=== PATIENT | male | born 1960 | race Caucasian/White ===

== ENCOUNTER 2023-09-11 13:15 | Outpatient (RCR) | payer MEDICAID, SELFPAY ==
[2023-08-21 13:12] VITALS: BP 141/76; PULSE 61; RESP 18; BMI 32.5
--- NOTE | 2023-08-22 13:57 | PCM.WC.HP ---
History of Present Illness Date of Service: 08/21/23 Chief Complaint: Right Diabetic Foot Ulcer History of Wound: Mr. Devin Molina is a 63-year-old male who presents to the wound healing center today for evaluation and management of a right diabetic foot ulcer which seems to have formed after he began wearing regular shoes according to records received from prior wound center. This ulceration is on the right lateral foot. This wound has been ongoing for at least the last 2 months. He recently moved back to [place] from [place] where he had been for the past several years. He was receiving care for this ulceration at the wound care center there. He reports they were treating with Apligraf and PuraPly. He reports the wound has been making positive progress over the last few weeks. He is wearing a surgical shoe to keep pressure off of that area. He has been seen here at this wound center multiple times in the past for diabetic foot ulcers, last seen in 2015 before moving to [place]. 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 He had a left lower extremity angiogram with tibial intervention on 01/14/2023 to attempt to improve inflow for limb salvage efforts. Ultimately he did undergo the left BKA on 03/05/2023. Other than this recent angiogram he denies any prior vascular surgical interventions. He did have arterial studies in [place] on 06/17/2023 and the fax report shows a right TEDDY of 1.03 with stenosis of the right SFA. He has a history of poorly controlled diabetes but fortunately now has better control with report of his last A1c 6.8 in May. He did receive new shoe insert from podiatry in [place]. He just got back to [place] this week. He has called to establish with a PCP but his first appointment is not until September. He relates that he will be out of insulin before then and he is concerned about this. He is also having some trouble with his prosthetic, there is a spot that is rubbing against his left knee but he has not established with a prosthetics company here in [place] yet. He has not established with a certified nursing assistant instructor here yet. [facility] Home Medications aspirin 81 mg chewable tablet 81 mg PO DAILY@0800 02/23/16 [History Last Taken Unknown] clopidogrel 75 mg tablet (Plavix) 75 mg PO DAILY 08/21/23 [History Last Taken Unknown] insulin aspart U-100 See Rx Instructions .Route .COMPLEX 08/21/23 [History Last Taken Unknown] Allergy/AdvReac Type Severity Reaction Status Date / Time Sulfa (Sulfonamide Allergy Unknown Verified 08/21/23 13:33 Antibiotics) liraglutide [From Victoza] AdvReac Vomiting Verified 08/21/23 13:33 Social History Smoking Status: Never smoker Vital Signs Vital Signs Vital Signs: Weight Weight: 240 lb 1.75 oz Body Mass Index (BMI) 32.5 Physical Exam Const alert, oriented x3 and no apparent distress General Appearance: cooperative and comfortable HEENT normocephalic, head/scalp atraumatic, hearing grossly normal bilaterally, external ears normal and external nose normal Eyes EOMs intact bilaterally General Eye: normal appearance of both eyes Neck full ROM General: normal visual inspection and trachea midline Resp normal respiratory effort Effort and Inspection: able to speak in complete sentences; Negative for respiratory distress, labored, stridor, retractions or audible wheezes Cardio regular rate and regular rhythm Extremity Extremity Narrative: Left BKA Palpable right PT, DP diminished to palpation Skin no rashes or lesions noted Wounds: wounds noted Wound Narrative: Small ulceration to the right lateral aspect of the foot. There is granulation tissue at the base, some callus in the periwound. There is no significant tracking. Minimal periwound erythema without excessive warmth or focal swelling. No significant drainage or foul odor. Neuro oriented x3, CN's II-XII intact bilaterally, moves all extremities and no focal motor deficits Speech: speech normal Psych mental status grossly normal Appearance: grossly normal Attitude: calm and engaged Activity / Motor Behavior: appropriate eye contact Speech: normal speech Judgement: judgement good Debridement Note Debridement Note Wound debrided: Right lateral foot Laterality: Right Type of Debridement: Excisional debridement Anesthesia Used: 5% Lidocaine Gel Depth: in the subcutaneous layer Percentage of wound debrided: 100 Instrument Used: 5mm curette Tissue Removed: Callus, slough, devitalized tissue Severity: Fat Layer Exposed Amount of bleeding with debridement: Mild Bleeding Controlled with: Pressure Patient tolerated procedure: Patient tolerated procedure well Post-Debridement Measurements and Additional Note: Post-Debridement Measurements/Treatment WC - Nurse 1 - General Ulcer Assessment Start: 08/21/23 13:12 Freq: Status: Active Protocol: WC.LOWEXT Activity Type Activity Date Activity User E-sign Co-sign Detail Recorded Client Recorded Date Recorded By Document 08/21/23 13:12 DL Desktop 08/21/23 13:27 DL Edit Result 08/21/23 13:12 DL (1) Desktop 08/21/23 13:30 DL (1) Preferred language => [place] Able to Read => Yes Able to Write => Yes Communication Tools => None Right Hearing Abillity => Normal Left Hearing Abillity => Normal Visual Assistive Devices => Glasses Preferences => Verbal,Written Barriers to Learning => None Readiness To Learn => Good Willingness to Engage in Self Management => Med Activies Readiness to Engage in Self Management => Med Activities Anxiety Level => Calm Cooperation => Cooperative Perception => Coherent Interest in Health Problem => Asks Questions Education Importance => Acknowledges Need Does Patient Smoke tobacco or other => No substances Is Patient Diabetic => Yes Recent Decline in Ability to Perform => Denies Any => Declines Cultural/Religion Needs that may affect => No Treatment Plan Would you allow our [facility] accounts clerk to => No meet you for the purpose of spiritual/ emotional support? Federal Agent to contact place of mormon => No 08/21/23 13:12 - Today's Visit Information Type of service Initial Visit Arrival Mode Ambulatory Transfer Assistance None Patient Identification Verified (Name & Yes ) Patient Requires Transmission-Based No Precautions Finger Stick Blood Sugar(mg/dl) (if 122 indicated): Blood Sugar Stated by Patient Height and Weight Height 6 ft Weight 240 lb 1.75 oz Weight in Pounds 240.1 lbs Body Mass Index (BMI) 32.5 BMI Classification Obese BSA - Ben 2.30 Vital Signs Pulse Rate (60-100) 61 Pulse Location Monitor Respiratory Rate (12-18) 18 Respiratory rate source Observation Blood Pressure (90/60-120/80) 141/76 H Blood Pressure Mean 97 Source Monitor History Since Last Visit- (Skip if this is Patient's initial visit) Left Footwear Regular Shoe Right Footwear Surgical Shoe with pressure relief insole Pain Scale: 0-10 Numeric Is Patient Pain Free? Yes Communication Assessment Preferred language [place] Able to Read Yes Able to Write Yes Communication Tools None Right Hearing Abillity Normal Left Hearing Abillity Normal Visual Assistive Devices Glasses Teaching Assessment Preferences Verbal,Written Barriers to Learning None Readiness To Learn Good Willingness to Engage in Self Management Med Activies Readiness to Engage in Self Management Med Activities Anxiety Level Calm Cooperation Cooperative Perception Coherent Interest in Health Problem Asks Questions Education Importance Acknowledges Need Does Patient Smoke tobacco or other No substances Is Patient Diabetic Yes Functional Assessment Recent Decline in Ability to Perform Denies Any Declines Culture/Religion/Federal Agent Cultural/Religion Needs that may affect No Treatment Plan Would you allow our hospital accounts clerk to No meet you for the purpose of spiritual/ emotional support? Federal Agent to contact place of mormon No WC - Nurse 1 - General Ulcer Measurement Start: 08/21/23 13:12 Freq: Status: Active Protocol: Activity Type Activity Date Activity User E-sign Co-sign Detail Recorded Client Recorded Date Recorded By Document 08/21/23 13:12 DL Desktop 08/21/23 13:27 DL 08/21/23 13:12 Wound Center Nurse 1 2. right foot 3rd met head -Current Size (cm) - Length 0.7 -Current Size (cm) - Width 0.4 -Current Size (cm) - Depth 0.1 -Total Square Cm 0.28 -Photo Taken Yes -Maximum Distance #2 (cm) 0.6 -Circular Undermining Yes -Exudate Amt Small -Exudate Type Serosanguineous -Wound Margin Thickened -Granulation Amt Small (1-33%) -Granulation Quality Pale,[place] -Necrosis Amt Small (1-33%) -Necrotic Tissue Type Adherent Slough -Structure Exposed N/A -Texture (Blaire-wound Skin Appearance) Scarring -Moisture (Blaire-wound Skin Appearance) Dry/Scaly -Color (Blaire-wound Skin Appearance) No Abnormality -Temperature (Blaire-wound Skin No Abnormality Appearance) (Pt Warm) -Tenderness on Palpation (Blaire-wound No Skin Appearance) -Ulcer Cleansing Not Cleansed -Foul Odor after Cleansing No -Anesthetic Used 5% Lidocaine Gel WC - Nurse 2 - General Ulcer CM Notes Start: 08/21/23 13:12 Freq: Status: Active Protocol: Activity Type Activity Date Activity User E-sign Co-sign Detail Recorded Client Recorded Date Recorded By Document 08/21/23 16:18 PL [id number] 08/21/23 16:19 PL 08/21/23 16:18 Wound Center Nurse 2 -Time 13:54 -Correct Patient Yes -Correct Side, Site, Position Yes -Correct Procedure Yes -Procedure Performed Yes -Type of Procedure Debridement -Clinical Debridement Subcutaneous -Tissue Removed Subcutaneous -Post Debridement (cm) - Length 1.0 -Post Debridement (cm) - Width 0.7 -Post Debridement (cm) - Depth 0.2 -Total Square (Post) (cm) 0.70 -Area of Debridement (cm) - Length 1.0 -Area of Debridement (cm) - Width 0.7 -Total Square (Area) (cm) 0.70 -Tunneling No -Undermining/Tunneling No -Circular Undermining No -Wound/Ulcer Outcome Not Healed -Ulcer Cleansing Rinsed/ Irrigated with Saline -Foul Odor after Cleansing No -Bioengineered Tissue No -Bleeding Controlled with Pressure -Treatment Response Procedure Tolerated Well -Debridement - Subq, 1st 20sq cm Yes Pain Scale: 0-10 Numeric Is Patient Pain Free? Yes - Nurse 3 - General Ulcer D/C NN Start: 08/21/23 13:12 Freq: Status: Active Protocol: Activity Type Activity Date Activity User E-sign Co-sign Detail Recorded Client Recorded Date Recorded By Document 08/21/23 14:29 [facility] Desktop 08/21/23 14:29 [facility] 08/21/23 14:29 Wound Care Center Nurse 3 2. right foot 3rd met head -Ulcer Cleansing Rinsed/ Irrigated with Saline -Foul Odor after Cleansing No -Primary Dressing Applied Mepilex Border, Promogran Elisa Matter -Mepilex Border 1 -Promogran Elisa Matter 1 Treatment Response Procedure Tolerated Well Pain Scale: 0-10 Numeric Is Patient Pain Free? Yes - Visit Discharge Discharge Condition Stable Ambulatory Status Ambulatory Transportation Private Auto Charges/Coding Visit Charges Office Visits / Consults: [id number] OV L3 New 30min Procedures Integumentary [id number]: [id number] Violet subq tissue 20 sq cm/< Assessment/Plan Assessment/Plan (1) Diabetic ulcer of right foot associated with diabetes mellitus due to underlying condition, with fat layer exposed: CODE(S): E08.621 - Diabetes mellitus due to underlying condition with foot ulcer; L97.512 - Non-pressure chronic ulcer of other part of right foot with fat layer exposed (2) Amputation of left lower extremity below knee: CODE(S): S88.112A - Complete traumatic amputation at level between knee and ankle, left lower leg, initial encounter PLAN: Plan Debridement performed as noted above the patient tolerated this well. Will apply lightly moistened Elisa to the wound bed, cover with foam border dressing. Change the dressing daily or more often as needed if it becomes soiled. May wash the area gently with antibacterial soap and water and pat to dry with dressing changes. He was instructed not to submerge the wound in water. Continue to wear the surgical shoe and ensure no pressure/friction against the wound. For now, okay to walk as needed but avoid prolonged walking or standing where possible. Elevate leg with resting. He has a small area of concern on the left knee Which just shows stage I pressure injury on the left patella. Encourage him to pat this area. I have called the antibiotics and they are agreeable to seeing the patient to make adjustments to his prosthesis as needed. He is provided with [facility] phone number and he will need to call to set up this appointment. Patient reported that he had an appointment scheduled with [facility] in September but was going to be running out of his insulin before then. I did reach out to [facility] and they stated they would be able to provide him with insulin to hold him over to his appointment. He was provided with their phone number and encouraged to call them early next week if he had not received an updated prescription by then or present to the emergency room should he run out before this. He will return to the wound healing center in 1 week.
[2023-08-28 13:10] VITALS: BP 163/98; RESP 16; TEMP 36.7; BMI 32.5
--- NOTE | 2023-08-29 07:26 | PN.PCM_ITS ---
History of Present Illness Date of Service: 08/28/23 Chief Complaint: Right Diabetic Foot Ulcer History of Wound: Mr. Devin Molina is a 63-year-old male who presents to the wound healing center today for evaluation and management of a right diabetic foot ulcer which seems to have formed after he began wearing regular shoes according to records received from prior wound center. This ulceration is on the right lateral foot. This wound has been ongoing for at least the last 2 months. He recently moved back to [place] from [place] where he had been for the past several years. He was receiving care for this ulceration at the wound care center there. He reports they were treating with Apligraf and PuraPly. He reports the wound has been making positive progress over the last few weeks. He is wearing a surgical shoe to keep pressure off of that area. He has been seen here at this wound center multiple times in the past for diabetic foot ulcers, last seen in 2015 before moving to [place]. 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 He had a left lower extremity angiogram with tibial intervention on 01/14/2023 to attempt to improve inflow for limb salvage efforts. Ultimately he did undergo the left BKA on 03/05/2023. Other than this recent angiogram he denies any prior vascular surgical interventions. He did have arterial studies in [place] on 06/17/2023 and the fax report shows a right TEDDY of 1.03 with stenosis of the right SFA. He has a history of poorly controlled diabetes but fortunately now has better control with report of his last A1c 6.8 in May. He did receive new shoe insert from podiatry in [place]. He just got back to [place] this week. He has called to establish with a PCP but his first appointment is not until September. He relates that he will be out of insulin before then and he is concerned about this. He is also having some trouble with his prosthetic, there is a spot that is rubbing against his left knee but he has not established with a prosthetics company here in [place] yet. He has not established with a district extension service agent here yet. Subjective Subjective He had some trouble with dressing changes this week, he has a hard time visualizing the wound which makes it difficult to apply the wound dressings in the correct location. Otherwise, he denies any new redness, swelling, drainage, foul odor. He continues to use the surgical shoe. Objective Data Objective Data Vital Signs: Vital Signs Temp Pulse Resp BP O2 Del Method 98.1 F 61 16 163/98 H Room Air 08/28/23 13:10 08/21/23 13:12 08/28/23 13:10 08/28/23 13:10 08/28/23 13:10 Oxygen Delivery Method Room Air Weight: 240 lb 1.75 oz Body Mass Index (BMI) 32.5 Charges/Coding Procedures Integumentary 111xxx-113xx: [id number] Violet subq tissue 20 sq cm/< Physical Exam Const alert, oriented x3 and no apparent distress General Appearance: cooperative and comfortable HEENT normocephalic, head/scalp atraumatic, hearing grossly normal bilaterally, external ears normal and external nose normal Eyes EOMs intact bilaterally General Eye: normal appearance of both eyes Neck full ROM General: normal visual inspection and trachea midline Resp normal respiratory effort Effort and Inspection: able to speak in complete sentences; Negative for respiratory distress, labored, stridor, retractions or audible wheezes Cardio regular rate and regular rhythm Extremity Extremity Narrative: Left BKA Palpable right PT, DP diminished to palpation Skin no rashes or lesions noted Wounds: wounds noted Wound Narrative: Small ulceration to the right lateral aspect of the foot. There is granulation tissue at the base, some callus in the periwound. There is no significant tracking. Minimal periwound erythema without excessive warmth or focal swelling. No significant drainage or foul odor. Neuro oriented x3, CN's II-XII intact bilaterally, moves all extremities and no focal motor deficits Speech: speech normal Psych mental status grossly normal Appearance: grossly normal Attitude: calm and engaged Activity / Motor Behavior: appropriate eye contact Speech: normal speech Judgement: judgement good Debridement Note Debridement Note Wound debrided: Right lateral foot Laterality: Right Type of Debridement: Excisional debridement Anesthesia Used: 5% Lidocaine Gel Depth: in the subcutaneous layer Percentage of wound debrided: 100 Instrument Used: 5mm curette Tissue Removed: Callus, slough, devitalized tissue Severity: Fat Layer Exposed Amount of bleeding with debridement: Mild Bleeding Controlled with: Pressure Patient tolerated procedure: Patient tolerated procedure well Post-Debridement Measurements and Additional Note: Post-Debridement Measurements/Treatment - Nurse 1 - General Ulcer Assessment Start: 08/21/23 13:12 Freq: Status: Active Protocol: BERE Activity Type Activity Date Activity User E-sign Co-sign Detail Recorded Client Recorded Date Recorded By Document 08/21/23 13:12 DL Desktop 08/21/23 13:27 DL Edit Result 08/21/23 13:12 DL (1) Desktop 08/21/23 13:30 DL Document 08/28/23 13:10 KW Desktop 08/28/23 13:16 KW (1) Preferred language => [place] Able to Read => Yes Able to Write => Yes Communication Tools => None Right Hearing Abillity => Normal Left Hearing Abillity => Normal Visual Assistive Devices => Glasses Preferences => Verbal,Written Barriers to Learning => None Readiness To Learn => Good Willingness to Engage in Self Management => Med Activies Readiness to Engage in Self Management => Med Activities Anxiety Level => Calm Cooperation => Cooperative Perception => Coherent Interest in Health Problem => Asks Questions Education Importance => Acknowledges Need Does Patient Smoke tobacco or other => No substances Is Patient Diabetic => Yes Recent Decline in Ability to Perform => Denies Any => Declines Cultural/Rastafarian Needs that may affect => No Treatment Plan Would you allow our hospital senior customer service representative to => No meet you for the purpose of spiritual/ emotional support? Berry Picker to contact place of faith => No 08/21/23 08/28/23 13:12 13:10 - Today's Visit Information Type of service Initial Visit Nurse-only Visit Arrival Mode Ambulatory Ambulatory Transfer Assistance None Patient Identification Verified (Name & Yes Yes ) Patient Requires Transmission-Based No Precautions Finger Stick Blood Sugar(mg/dl) (if 122 indicated): Blood Sugar Stated by Patient Height and Weight Height 6 ft Weight 240 lb 1.75 oz Weight in Pounds 240.1 lbs Body Mass Index (BMI) 32.5 32.5 BMI Classification Obese Obese BSA - Ben 2.30 Vital Signs Temperature (97.8 F-99.1 F) 98.1 F Temperature Source Temporal Pulse Rate (60-100) 61 Pulse Location Monitor Monitor Respiratory Rate (12-18) 18 16 Respiratory rate source Observation Observation Oxygen Delivery Method Room Air Blood Pressure (90/60-120/80) 141/76 H 163/98 H Blood Pressure Mean (mm Hg) 97 119 Source Monitor Monitor Position Semi-Fowlers Blood Pressure Location Left Arm History Since Last Visit- (Skip if this is Patient's initial visit) Have you changed medications since your No last visit? Any new allergies or adverse reactions No Had a fall/change in ADL's that may No increase risk of falls Signs or symptoms of abuse and/or No neglect since last visit Have you been in the hospital since your No last visit? Has dressing in place as prescribed Yes Has compression in place as prescribed No Has offloadiing in place as prescribed No Experienced any changes in pain level or No management Left Footwear Regular Shoe Regular Shoe Right Footwear Surgical Shoe Regular Shoe with pressure relief insole Pain Scale: 0-10 Numeric Is Patient Pain Free? Yes Yes Communication Assessment Preferred language [place] Able to Read Yes Able to Write Yes Communication Tools None Right Hearing Abillity Normal Left Hearing Abillity Normal Visual Assistive Devices Glasses Teaching Assessment Preferences Verbal,Written Barriers to Learning None Readiness To Learn Good Willingness to Engage in Self Management Med Activies Readiness to Engage in Self Management Med Activities Anxiety Level Calm Cooperation Cooperative Perception Coherent Interest in Health Problem Asks Questions Education Importance Acknowledges Need Does Patient Smoke tobacco or other No substances Is Patient Diabetic Yes Functional Assessment Recent Decline in Ability to Perform Denies Any Declines Culture/Rastafarian/Berry Picker Cultural/Rastafarian Needs that may affect No Treatment Plan Would you allow our hospital senior customer service representative to No meet you for the purpose of spiritual/ emotional support? Berry Picker to contact place of faith No WC - Nurse 1 - General Ulcer Measurement Start: 08/21/23 13:12 Freq: Status: Active Protocol: Activity Type Activity Date Activity User E-sign Co-sign Detail Recorded Client Recorded Date Recorded By Document 08/21/23 13:12 DL Desktop 08/21/23 13:27 DL Document 08/28/23 13:10 KW Desktop 08/28/23 13:16 KW 08/21/23 08/28/23 13:12 13:10 Wound Center Nurse 1 2. right foot 3rd met head -Current Size (cm) - Length 0.7 0.2 -Current Size (cm) - Width 0.4 1 -Current Size (cm) - Depth 0.1 0.1 -Total Square Cm 0.28 0.2 -Photo Taken Yes -Maximum Distance #2 (cm) 0.6 -Circular Undermining Yes -Exudate Amt Small Small -Exudate Type Serosanguineous Serosanguineous -Wound Margin Thickened Distinct, Outline Attached -Granulation Amt Small (1-33%) Medium (34-66%) -Granulation Quality Pale,War War -Necrosis Amt Small (1-33%) Small (1-33%) -Necrotic Tissue Type Adherent Slough Adherent Slough -Structure Exposed N/A -Texture (Blaire-wound Skin Appearance) Scarring Callus -Moisture (Blaire-wound Skin Appearance) Dry/Scaly Assessed -Color (Blaire-wound Skin Appearance) No Abnormality Assessed -Temperature (Blaire-wound Skin No Abnormality No Abnormality Appearance) (Pt Warm) (Pt Warm) -Tenderness on Palpation (Blaire-wound No Skin Appearance) -Ulcer Cleansing Not Cleansed Rinsed/ Irrigated with Saline -Foul Odor after Cleansing No -Anesthetic Used 5% Lidocaine 5% Lidocaine Gel Gel WC - Nurse 2 - General Ulcer CM Notes Start: 08/21/23 13:12 Freq: Status: Active Protocol: Activity Type Activity Date Activity User E-sign Co-sign Detail Recorded Client Recorded Date Recorded By Document 08/21/23 16:18 PL [id number] 08/21/23 16:19 PL Document 08/28/23 15:59 PL [id number] 08/28/23 16:00 PL 08/21/23 08/28/23 16:18 15:59 Wound Center Nurse 2 2. right foot 3rd met head -Time 13:54 13:31 -Correct Patient Yes Yes -Correct Side, Site, Position Yes Yes -Correct Procedure Yes Yes -Procedure Performed Yes Yes -Type of Procedure Debridement Debridement -Clinical Debridement Subcutaneous Subcutaneous -Tissue Removed Subcutaneous Subcutaneous -Post Debridement (cm) - Length 1.0 0.7 -Post Debridement (cm) - Width 0.7 0.6 -Post Debridement (cm) - Depth 0.2 0.1 -Total Square (Post) (cm) 0.70 0.42 -Area of Debridement (cm) - Length 1.0 0.7 -Area of Debridement (cm) - Width 0.7 0.6 -Total Square (Area) (cm) 0.70 0.42 -Tunneling No No -Undermining/Tunneling No No -Circular Undermining No No -Wound/Ulcer Outcome Not Healed Not Healed -Ulcer Cleansing Rinsed/ Rinsed/ Irrigated with Irrigated with Saline Saline -Foul Odor after Cleansing No No -Bioengineered Tissue No No -Bleeding Controlled with Pressure Pressure -Treatment Response Procedure Procedure Tolerated Well Tolerated Well -Debridement - Subq, 1st 20sq cm Yes Yes Pain Scale: 0-10 Numeric Is Patient Pain Free? Yes Yes - Nurse 3 - General Ulcer D/C NN Start: 08/21/23 13:12 Freq: Status: Active Protocol: Activity Type Activity Date Activity User E-sign Co-sign Detail Recorded Client Recorded Date Recorded By Document 08/21/23 14:29 [employer] Desktop 08/21/23 14:29 [employer] Document 08/28/23 13:48 Desktop 08/28/23 13:49 KW 08/21/23 08/28/23 14:29 13:48 Wound Care Center Nurse 3 2. right foot 3rd met head -Ulcer Cleansing Rinsed/ Irrigated with Saline -Foul Odor after Cleansing No -Primary Dressing Applied Mepilex Border, Promogran Promogran Elisa Matter Elisa Matter -Primary Dressing Covered/Secured with Dry Gauze, Secured with Tape -Mepilex Border 1 -Promogran Elisa Matter 1 1 Treatment Response Procedure Tolerated Well Pain Scale: 0-10 Numeric Is Patient Pain Free? Yes Yes - Visit Discharge Discharge Condition Stable Stable Ambulatory Status Ambulatory Ambulatory Transportation Private Auto Private Auto Medication Reconcilliation completed & No provided to patient/care provider Clinical Summary of Care Provided Yes Assessment/Plan Assessment/Plan (1) Diabetic ulcer of right foot associated with diabetes mellitus due to underlying condition, with fat layer exposed: CODE(S): E08.621 - Diabetes mellitus due to underlying condition with foot ulcer; L97.512 - Non-pressure chronic ulcer of other part of right foot with fat layer exposed (2) Amputation of left lower extremity below knee: CODE(S): S88.112A - Complete traumatic amputation at level between knee and ankle, left lower leg, initial encounter PLAN: Plan Debridement performed as noted above the patient tolerated this well. Wound is improved in size this week. Will continue apply lightly moistened Elisa to the wound bed, cover with foam border dressing. Change the dressing daily or more often as needed if it becomes soiled. May wash the area gently with antibacterial soap and water and pat to dry with dressing changes. He was instructed not to submerge the wound in water. Continue to wear the surgical shoe and ensure no pressure/friction against the wound. For now, okay to walk as needed but avoid prolonged walking or standing where possible. Elevate leg with resting. He is advised to try utilizing a mirror when applying dressings to ensure he is placing the Elisa over the wound bed. If he continue to have difficulty applying the dressings at home, then we can arrange for nurse visits to assist. He will return to the wound healing center in 1 week.
[2023-09-04 12:59] VITALS: BP 133/49; PULSE 40; RESP 16; TEMP 36.9; BMI 32.5
--- NOTE | 2023-09-04 17:11 | PCM.WC.PN ---
History of Present Illness Date of Service: 09/04/23 Chief Complaint: Right Diabetic Foot Ulcer History of Wound: Mr. Devin Molina is a 63-year-old male who presents to the wound healing center today for evaluation and management of a right diabetic foot ulcer which seems to have formed after he began wearing regular shoes according to records received from prior wound center. This ulceration is on the right lateral foot. This wound has been ongoing for at least the last 2 months. He recently moved back to [place] from [place] where he had been for the past several years. He was receiving care for this ulceration at the wound care center there. He reports they were treating with Apligraf and PuraPly. He reports the wound has been making positive progress over the last few weeks. He is wearing a surgical shoe to keep pressure off of that area. He has been seen here at this wound center multiple times in the past for diabetic foot ulcers, last seen in 2015 before moving to [place]. 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 He had a left lower extremity angiogram with tibial intervention on 01/14/2023 to attempt to improve inflow for limb salvage efforts. Ultimately he did undergo the left BKA on 03/05/2023. Other than this recent angiogram he denies any prior vascular surgical interventions. He did have arterial studies in [place] on 06/17/2023 and the fax report shows a right TEDDY of 1.03 with stenosis of the right SFA. He has a history of poorly controlled diabetes but fortunately now has better control with report of his last A1c 6.8 in May. He did receive new shoe insert from podiatry in [place]. He just got back to [place] this week. He has called to establish with a PCP but his first appointment is not until September. He relates that he will be out of insulin before then and he is concerned about this. He is also having some trouble with his prosthetic, there is a spot that is rubbing against his left knee but he has not established with a prosthetics company here in [place] yet. He has not established with a pipe smoker machine operator here yet. Subjective Subjective He has done better with dressing changes this week using a mirror and larger piece of Elisa to ensure he is covering the wound. The wound has improved in size again this week. No N/V, F/C, redness, swelling, increased drainage, foul odor. Objective Data Objective Data Vital Signs: Vital Signs Temp Pulse Resp BP O2 Del Method 98.4 F 40 L 16 133/49 H Room Air 09/04/23 12:59 09/04/23 12:59 09/04/23 12:59 09/04/23 12:59 09/04/23 12:59 Oxygen Delivery Method Room Air Weight: 240 lb 1.75 oz Body Mass Index (BMI) 32.5 Charges/Coding Procedures Integumentary 111xxx-113xx: [id number] Violet subq tissue 20 sq cm/< Physical Exam Const alert, oriented x3 and no apparent distress General Appearance: cooperative and comfortable HEENT normocephalic, head/scalp atraumatic, hearing grossly normal bilaterally, external ears normal and external nose normal Eyes EOMs intact bilaterally General Eye: normal appearance of both eyes Neck full ROM General: normal visual inspection and trachea midline Resp normal respiratory effort Effort and Inspection: able to speak in complete sentences; Negative for respiratory distress, labored, stridor, retractions or audible wheezes Cardio regular rate and regular rhythm Extremity Extremity Narrative: Left BKA Palpable right PT, DP diminished to palpation Skin no rashes or lesions noted Wounds: wounds noted Wound Narrative: Small ulceration to the right lateral aspect of the foot. There is granulation tissue at the base, some callus in the periwound. There is no significant tracking. Minimal periwound erythema without excessive warmth or focal swelling. No significant drainage or foul odor. Neuro oriented x3, CN's II-XII intact bilaterally, moves all extremities and no focal motor deficits Speech: speech normal Psych mental status grossly normal Appearance: grossly normal Attitude: calm and engaged Activity / Motor Behavior: appropriate eye contact Speech: normal speech Judgement: judgement good Debridement Note Debridement Note Wound debrided: Right lateral foot Laterality: Right Type of Debridement: Excisional debridement Anesthesia Used: 5% Lidocaine Gel Depth: in the subcutaneous layer Percentage of wound debrided: 100 Instrument Used: 5mm curette Tissue Removed: Callus, slough, devitalized tissue Severity: Fat Layer Exposed Amount of bleeding with debridement: Mild Bleeding Controlled with: Pressure Patient tolerated procedure: Patient tolerated procedure well Post-Debridement Measurements and Additional Note: Post-Debridement Measurements/Treatment WC - Nurse 1 - General Ulcer Assessment Start: 08/21/23 13:12 Freq: Status: Active Protocol: BERE Activity Type Activity Date Activity User E-sign Co-sign Detail Recorded Client Recorded Date Recorded By Document 08/21/23 13:12 DL Desktop 08/21/23 13:27 DL Edit Result 08/21/23 13:12 DL (1) Desktop 08/21/23 13:30 DL Document 08/28/23 13:10 KW Desktop 08/28/23 13:16 KW Document 09/04/23 12:59 BMF Desktop 09/04/23 13:08 BMF (1) Preferred language => Greek Able to Read => Yes Able to Write => Yes Communication Tools => None Right Hearing Abillity => Normal Left Hearing Abillity => Normal Visual Assistive Devices => Glasses Preferences => Verbal,Written Barriers to Learning => None Readiness To Learn => Good Willingness to Engage in Self Management => Med Activies Readiness to Engage in Self Management => Med Activities Anxiety Level => Calm Cooperation => Cooperative Perception => Coherent Interest in Health Problem => Asks Questions Education Importance => Acknowledges Need Does Patient Smoke tobacco or other => No substances Is Patient Diabetic => Yes Recent Decline in Ability to Perform => Denies Any => Declines Cultural/Cheondoism Needs that may affect => No Treatment Plan Would you allow our [facility] institutional research director to => No meet you for the purpose of spiritual/ emotional support? Forming Operator to contact place of sikhism => No 08/21/23 08/28/23 09/04/23 13:12 13:10 12:59 - Today's Visit Information Type of service Initial Visit Nurse-only Follow-up Visit Visit (Physician/CLERK ANALYST ) Arrival Mode Ambulatory Ambulatory Ambulatory Transfer Assistance None None Patient Identification Verified (Name & Yes Yes Yes ) Patient Requires Transmission-Based No No Precautions Finger Stick Blood Sugar(mg/dl) (if 122 indicated): Blood Sugar Stated by Patient Height and Weight Height 6 ft Weight 240 lb 1.75 oz Weight in Pounds 240.1 lbs Body Mass Index (BMI) 32.5 32.5 32.5 BMI Classification Obese Obese Obese BSA - Ben 2.30 Vital Signs Temperature (97.8 F-99.1 F) 98.1 F 98.4 F Temperature Source Temporal Temporal Pulse Rate (60-100) 61 40 L Pulse Location Monitor Monitor Monitor Respiratory Rate (12-18) 18 16 16 Respiratory rate source Observation Observation Observation Oxygen Delivery Method Room Air Room Air Blood Pressure (90/60-120/80) 141/76 H 163/98 H 133/49 H Blood Pressure Mean (mm Hg) 97 119 77 Source Monitor Monitor Monitor Position Semi-Fowlers Sitting Blood Pressure Location Left Arm Left Arm History Since Last Visit- (Skip if this is Patient's initial visit) Have you changed medications since your No No last visit? Any new allergies or adverse reactions No No Had a fall/change in ADL's that may No No increase risk of falls Signs or symptoms of abuse and/or No No neglect since last visit Have you been in the hospital since your No No last visit? Has dressing in place as prescribed Yes Yes Has compression in place as prescribed No N/A Has offloadiing in place as prescribed No N/A Experienced any changes in pain level or No No management Left Footwear Regular Shoe Regular Shoe Regular Shoe Right Footwear Surgical Shoe Regular Shoe Regular Shoe with pressure relief insole Pain Scale: 0-10 Numeric Is Patient Pain Free? Yes Yes Yes Communication Assessment Preferred language Greek Able to Read Yes Able to Write Yes Communication Tools None Right Hearing Abillity Normal Left Hearing Abillity Normal Visual Assistive Devices Glasses Teaching Assessment Preferences Verbal,Written Barriers to Learning None Readiness To Learn Good Willingness to Engage in Self Management Med Activies Readiness to Engage in Self Management Med Activities Anxiety Level Calm Cooperation Cooperative Perception Coherent Interest in Health Problem Asks Questions Education Importance Acknowledges Need Does Patient Smoke tobacco or other No substances Is Patient Diabetic Yes Functional Assessment Recent Decline in Ability to Perform Denies Any Declines Culture/Cheondoism/Forming Operator Cultural/Cheondoism Needs that may affect No Treatment Plan Would you allow our hospital institutional research director to No meet you for the purpose of spiritual/ emotional support? Forming Operator to contact place of sikhism No WC - Nurse 1 - General Ulcer Measurement Start: 08/21/23 13:12 Freq: Status: Active Protocol: Activity Type Activity Date Activity User E-sign Co-sign Detail Recorded Client Recorded Date Recorded By Document 08/21/23 13:12 DL Desktop 08/21/23 13:27 DL Document 08/28/23 13:10 KW Desktop 08/28/23 13:16 KW Document 09/04/23 12:59 BMF Desktop 09/04/23 13:08 BMF 08/21/23 08/28/23 09/04/23 13:12 13:10 12:59 Wound Center Nurse 1 2. right foot 3rd met head -Combined with other wound No -Current Size (cm) - Length 0.7 0.2 0.5 -Current Size (cm) - Width 0.4 1 0.3 -Current Size (cm) - Depth 0.1 0.1 0.2 -Total Square Cm 0.28 0.2 0.15 -Date of Last Picture (Recall this 09/04/23 field) -Photo Taken Yes Yes -Epithelialization Small 1-33% -Tunneling No -Undermining/Tunneling No -Maximum Distance #2 (cm) 0.6 -Circular Undermining Yes No -Exudate Amt Small Small Medium -Exudate Type Serosanguineous Serosanguineous Serosanguineous -Wound Margin Thickened Distinct, Distinct, Outline Outline Attached Attached -Granulation Amt Small (1-33%) Medium (34-66%) Large (67-100%) -Granulation Quality Pale,[place] -Slough/Fibrin Yes -Necrosis Amt Small (1-33%) Small (1-33%) Small (1-33%) -Necrotic Tissue Type Adherent Slough Adherent Slough Adherent Slough -Structure Exposed N/A -Texture (Blaire-wound Skin Appearance) Scarring Callus Assessed, Scarring -Moisture (Blaire-wound Skin Appearance) Dry/Scaly Assessed Assessed,Dry/ Scaly -Color (Blaire-wound Skin Appearance) No Abnormality Assessed Assessed -Temperature (Blaire-wound Skin No Abnormality No Abnormality No Abnormality Appearance) (Pt Warm) (Pt Warm) (Pt Warm) -Tenderness on Palpation (Blaire-wound No No Skin Appearance) -Ulcer Cleansing Not Cleansed Rinsed/ Rinsed/ Irrigated with Irrigated with Saline Saline -Foul Odor after Cleansing No No -Anesthetic Used 5% Lidocaine 5% Lidocaine 5% Lidocaine Gel Gel Gel WC - Nurse 2 - General Ulcer CM Notes Start: 08/21/23 13:12 Freq: Status: Active Protocol: Activity Type Activity Date Activity User E-sign Co-sign Detail Recorded Client Recorded Date Recorded By Document 08/21/23 16:18 PL [id number] 08/21/23 16:19 PL Document 08/28/23 15:59 PL [id number] 08/28/23 16:00 PL Document 09/04/23 15:53 PL [id number] 09/04/23 15:55 PL 08/21/23 08/28/23 09/04/23 16:18 15:59 15:53 Wound Center Nurse 2 2. right foot 3rd met head -Time 13:54 13:31 13:20 -Correct Patient Yes Yes Yes -Correct Side, Site, Position Yes Yes Yes -Correct Procedure Yes Yes Yes -Procedure Performed Yes Yes Yes -Type of Procedure Debridement Debridement Debridement -Clinical Debridement Subcutaneous Subcutaneous Subcutaneous -Tissue Removed Subcutaneous Subcutaneous Subcutaneous -Post Debridement (cm) - Length 1.0 0.7 0.6 -Post Debridement (cm) - Width 0.7 0.6 0.5 -Post Debridement (cm) - Depth 0.2 0.1 0.1 -Total Square (Post) (cm) 0.70 0.42 0.30 -Area of Debridement (cm) - Length 1.0 0.7 0.6 -Area of Debridement (cm) - Width 0.7 0.6 0.5 -Total Square (Area) (cm) 0.70 0.42 0.30 -Tunneling No No No -Undermining/Tunneling No No No -Circular Undermining No No No -Wound/Ulcer Outcome Not Healed Not Healed Not Healed -Ulcer Cleansing Rinsed/ Rinsed/ Rinsed/ Irrigated with Irrigated with Irrigated with Saline Saline Saline -Foul Odor after Cleansing No No No -Bioengineered Tissue No No No -Bleeding Controlled with Pressure Pressure Pressure -Treatment Response Procedure Procedure Procedure Tolerated Well Tolerated Well Tolerated Well -Debridement - Subq, 1st 20sq cm Yes Yes Yes Pain Scale: 0-10 Numeric Is Patient Pain Free? Yes Yes Yes WC - Nurse 3 - General Ulcer D/C NN Start: 08/21/23 13:12 Freq: Status: Active Protocol: Activity Type Activity Date Activity User E-sign Co-sign Detail Recorded Client Recorded Date Recorded By Document 08/21/23 14:29 [facility] Desktop 08/21/23 14:29 [facility] Document 08/28/23 13:48 KW Desktop 08/28/23 13:49 KW Document 09/04/23 13:42 KW Desktop 09/04/23 13:42 KW 08/21/23 08/28/23 09/04/23 14:29 13:48 13:42 Wound Care Center Nurse 3 2. right foot 3rd met head -Ulcer Cleansing Rinsed/ Irrigated with Saline -Foul Odor after Cleansing No -Primary Dressing Applied Mepilex Border, Promogran Promogran Promogran Elisa Matter Elisa Matter Elisa Matter -Primary Dressing Covered/Secured with Dry Gauze, Dry Gauze, Secured with Secured with Tape Tape -Mepilex Border 1 -Promogran Elisa Matter 1 1 2 Treatment Response Procedure Tolerated Well Pain Scale: 0-10 Numeric Is Patient Pain Free? Yes Yes Yes WC - Visit Discharge Discharge Condition Stable Stable Stable Ambulatory Status Ambulatory Ambulatory Ambulatory Transportation Private Auto Private Auto Private Auto Medication Reconcilliation completed & No No provided to patient/care provider Clinical Summary of Care Provided Yes Yes Assessment/Plan Assessment/Plan (1) Diabetic ulcer of right foot associated with diabetes mellitus due to underlying condition, with fat layer exposed: CODE(S): E08.621 - Diabetes mellitus due to underlying condition with foot ulcer; L97.512 - Non-pressure chronic ulcer of other part of right foot with fat layer exposed (2) Amputation of left lower extremity below knee: CODE(S): S88.112A - Complete traumatic amputation at level between knee and ankle, left lower leg, initial encounter PLAN: Plan Debridement performed as noted above the patient tolerated this well. Wound is improved in size this week. Will continue apply lightly moistened Elisa to the wound bed, cover with foam border dressing. Change the dressing daily or more often as needed if it becomes soiled. May wash the area gently with antibacterial soap and water and pat to dry with dressing changes. He was instructed not to submerge the wound in water. Continue to wear the surgical shoe and ensure no pressure/friction against the wound. For now, okay to walk as needed but avoid prolonged walking or standing where possible. Elevate leg with resting. He will return to the wound healing center in 1 week.
[2023-09-11 13:02] VITALS: BP 144/54; PULSE 39; RESP 20; TEMP 36.5; BMI 32.5
--- NOTE | 2023-09-12 08:47 | PCM.WC.PN ---
History of Present Illness Date of Service: 09/11/23 Chief Complaint: Right Diabetic Foot Ulcer History of Wound: Mr. Devin Molina is a 63-year-old male who presents to the wound healing center today for evaluation and management of a right diabetic foot ulcer which seems to have formed after he began wearing regular shoes according to records received from prior wound center. This ulceration is on the right lateral foot. This wound has been ongoing for at least the last 2 months. He recently moved back to [place] from [place] where he had been for the past several years. He was receiving care for this ulceration at the wound care center there. He reports they were treating with Apligraf and PuraPly. He reports the wound has been making positive progress over the last few weeks. He is wearing a surgical shoe to keep pressure off of that area. He has been seen here at this wound center multiple times in the past for diabetic foot ulcers, last seen in 2015 before moving to [place]. 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 He had a left lower extremity angiogram with tibial intervention on 01/14/2023 to attempt to improve inflow for limb salvage efforts. Ultimately he did undergo the left BKA on 03/05/2023. Other than this recent angiogram he denies any prior vascular surgical interventions. He did have arterial studies in [place] on 06/17/2023 and the fax report shows a right TEDDY of 1.03 with stenosis of the right SFA. He has a history of poorly controlled diabetes but fortunately now has better control with report of his last A1c 6.8 in May. He did receive new shoe insert from podiatry in [place]. Subjective Subjective Patient reports doing well with dressing changes this week. He has continued to wear his surgical shoe on the right foot, but is very eager to get back into his regular shoes as the surgical shoe is impairing his ability to work fully. He notes that in [place] they had fitted that right shoe with an orthotic so as to reduce the pressure in the area of the wound. He is not yet established with a space engineer in town yet, unfortunately most of her local providers are not in network with his insurance plan. Objective Data Objective Data Vital Signs: Vital Signs Temp Pulse Resp BP O2 Del Method 97.7 F L 39 L 20 H 144/54 H Room Air 09/11/23 13:02 09/11/23 13:02 09/11/23 13:02 09/11/23 13:02 09/04/23 12:59 Oxygen Delivery Method Room Air Weight: 240 lb 1.75 oz Body Mass Index (BMI) 32.5 Charges/Coding Procedures Integumentary 111xxx-113xx: [id number] Violet subq tissue 20 sq cm/< Physical Exam Const alert, oriented x3 and no apparent distress General Appearance: cooperative and comfortable HEENT normocephalic, head/scalp atraumatic, hearing grossly normal bilaterally, external ears normal and external nose normal Eyes EOMs intact bilaterally General Eye: normal appearance of both eyes Neck full ROM General: normal visual inspection and trachea midline Resp normal respiratory effort Effort and Inspection: able to speak in complete sentences; Negative for respiratory distress, labored, stridor, retractions or audible wheezes Cardio regular rate and regular rhythm Extremity Extremity Narrative: Left BKA Palpable right PT, DP diminished to palpation Skin no rashes or lesions noted Wounds: wounds noted Wound Narrative: Small ulceration to the right lateral aspect of the foot. There is granulation tissue at the base, some callus in the periwound. There is no significant tracking. Minimal periwound erythema without excessive warmth or focal swelling. No significant drainage or foul odor. Neuro oriented x3, CN's II-XII intact bilaterally, moves all extremities and no focal motor deficits Speech: speech normal Psych mental status grossly normal Appearance: grossly normal Attitude: calm and engaged Activity / Motor Behavior: appropriate eye contact Speech: normal speech Judgement: judgement good Debridement Note Debridement Note Wound debrided: Right lateral foot Laterality: Right Type of Debridement: Excisional debridement Anesthesia Used: 5% Lidocaine Gel Depth: in the subcutaneous layer Percentage of wound debrided: 100 Instrument Used: 5mm curette Tissue Removed: Callus, slough, devitalized tissue Severity: Fat Layer Exposed Amount of bleeding with debridement: Mild Bleeding Controlled with: Pressure Patient tolerated procedure: Patient tolerated procedure well Post-Debridement Measurements and Additional Note: Post-Debridement Measurements/Treatment GERRI - Nurse 1 - General Ulcer Assessment Start: 08/21/23 13:12 Freq: Status: Active Protocol: BERE Activity Type Activity Date Activity User E-sign Co-sign Detail Recorded Client Recorded Date Recorded By Document 08/21/23 13:12 DL Desktop 08/21/23 13:27 DL Edit Result 08/21/23 13:12 DL (1) Desktop 08/21/23 13:30 DL Document 08/28/23 13:10 KW Desktop 08/28/23 13:16 KW Document 09/04/23 12:59 BMF Desktop 09/04/23 13:08 BMF Document 09/11/23 13:02 DL Desktop 09/11/23 13:06 DL (1) Preferred language => Ukrainian Able to Read => Yes Able to Write => Yes Communication Tools => None Right Hearing Abillity => Normal Left Hearing Abillity => Normal Visual Assistive Devices => Glasses Preferences => Verbal,Written Barriers to Learning => None Readiness To Learn => Good Willingness to Engage in Self Management => Med Activies Readiness to Engage in Self Management => Med Activities Anxiety Level => Calm Cooperation => Cooperative Perception => Coherent Interest in Health Problem => Asks Questions Education Importance => Acknowledges Need Does Patient Smoke tobacco or other => No substances Is Patient Diabetic => Yes Recent Decline in Ability to Perform => Denies Any => Declines Cultural/Jehovah'S Witness Needs that may affect => No Treatment Plan Would you allow our hospital content coordinator to => No meet you for the purpose of spiritual/ emotional support? Coiled Coil Inspector to contact place of mandaeism => No 08/21/23 08/28/23 09/04/23 13:12 13:10 12:59 - Today's Visit Information Type of service Initial Visit Nurse-only Follow-up Visit Visit (Physician/GAMING SURVEILLANCE OBSERVER ) Arrival Mode Ambulatory Ambulatory Ambulatory Transfer Assistance None None Patient Identification Verified (Name & Yes Yes Yes ) Patient Requires Transmission-Based No No Precautions Finger Stick Blood Sugar(mg/dl) (if 122 indicated): Blood Sugar Stated by Patient Height and Weight Height 6 ft Weight 240 lb 1.75 oz Weight in Pounds 240.1 lbs Body Mass Index (BMI) 32.5 32.5 32.5 BMI Classification Obese Obese Obese BSA - Ben 2.30 Vital Signs Temperature (97.8 F-99.1 F) 98.1 F 98.4 F Temperature Source Temporal Temporal Pulse Rate (60-100) 61 40 L Pulse Location Monitor Monitor Monitor Respiratory Rate (12-18) 18 16 16 Respiratory rate source Observation Observation Observation Oxygen Delivery Method Room Air Room Air Blood Pressure (90/60-120/80) 141/76 H 163/98 H 133/49 H Blood Pressure Mean (mm Hg) 97 119 77 Source Monitor Monitor Monitor Position Semi-Fowlers Sitting Blood Pressure Location Left Arm Left Arm History Since Last Visit- (Skip if this is Patient's initial visit) Have you changed medications since your No No last visit? Any new allergies or adverse reactions No No Had a fall/change in ADL's that may No No increase risk of falls Signs or symptoms of abuse and/or No No neglect since last visit Have you been in the hospital since your No No last visit? Has dressing in place as prescribed Yes Yes Has compression in place as prescribed No N/A Has offloadiing in place as prescribed No N/A Experienced any changes in pain level or No No management Left Footwear Regular Shoe Regular Shoe Regular Shoe Right Footwear Surgical Shoe Regular Shoe Regular Shoe with pressure relief insole Pain Scale: 0-10 Numeric Is Patient Pain Free? Yes Yes Yes Communication Assessment Preferred language Ukrainian Able to Read Yes Able to Write Yes Communication Tools None Right Hearing Abillity Normal Left Hearing Abillity Normal Visual Assistive Devices Glasses Teaching Assessment Preferences Verbal,Written Barriers to Learning None Readiness To Learn Good Willingness to Engage in Self Management Med Activies Readiness to Engage in Self Management Med Activities Anxiety Level Calm Cooperation Cooperative Perception Coherent Interest in Health Problem Asks Questions Education Importance Acknowledges Need Does Patient Smoke tobacco or other No substances Is Patient Diabetic Yes Functional Assessment Recent Decline in Ability to Perform Denies Any Declines Culture/Jehovah'S Witness/Coiled Coil Inspector Cultural/Jehovah'S Witness Needs that may affect No Treatment Plan Would you allow our hospital content coordinator to No meet you for the purpose of spiritual/ emotional support? Coiled Coil Inspector to contact place of mandaeism No 09/11/23 13:02 WC - Today's Visit Information Type of service Follow-up Visit (Physician/GAMING SURVEILLANCE OBSERVER ) Arrival Mode Ambulatory Transfer Assistance None Patient Identification Verified (Name & Yes ) Patient Requires Transmission-Based No Precautions Finger Stick Blood Sugar(mg/dl) (if 137 indicated): Blood Sugar Stated by Patient Height and Weight Height Weight Weight in Pounds Body Mass Index (BMI) 32.5 BMI Classification Obese BSA - Ben Vital Signs Temperature (97.8 F-99.1 F) 97.7 F L Temperature Source Temporal Pulse Rate (60-100) 39 L Pulse Location Monitor Respiratory Rate (12-18) 20 H Respiratory rate source Observation Oxygen Delivery Method Blood Pressure (90/60-120/80) 144/54 H Blood Pressure Mean (mm Hg) 84 Source Monitor Position Blood Pressure Location History Since Last Visit- (Skip if this is Patient's initial visit) Have you changed medications since your No last visit? Any new allergies or adverse reactions No Had a fall/change in ADL's that may No increase risk of falls Signs or symptoms of abuse and/or No neglect since last visit Have you been in the hospital since your No last visit? Has dressing in place as prescribed Yes Has compression in place as prescribed N/A Has offloadiing in place as prescribed Yes Experienced any changes in pain level or No management Left Footwear Right Footwear Pain Scale: 0-10 Numeric Is Patient Pain Free? Yes Communication Assessment Preferred language Able to Read Able to Write Communication Tools Right Hearing Abillity Left Hearing Abillity Visual Assistive Devices Teaching Assessment Preferences Barriers to Learning Readiness To Learn Willingness to Engage in Self Management Activies Readiness to Engage in Self Management Activities Anxiety Level Cooperation Perception Interest in Health Problem Education Importance Does Patient Smoke tobacco or other substances Is Patient Diabetic Functional Assessment Recent Decline in Ability to Perform Culture/Jehovah'S Witness/Coiled Coil Inspector Cultural/Jehovah'S Witness Needs that may affect Treatment Plan Would you allow our hospital content coordinator to meet you for the purpose of spiritual/ emotional support? Coiled Coil Inspector to contact place of mandaeism WC - Nurse 1 - General Ulcer Measurement Start: 08/21/23 13:12 Freq: Status: Active Protocol: Activity Type Activity Date Activity User E-sign Co-sign Detail Recorded Client Recorded Date Recorded By Document 08/21/23 13:12 DL Desktop 08/21/23 13:27 DL Document 08/28/23 13:10 KW Desktop 08/28/23 13:16 KW Document 09/04/23 12:59 BMF Desktop 09/04/23 13:08 BMF Document 09/11/23 13:02 DL Desktop 09/11/23 13:06 DL 08/21/23 08/28/23 09/04/23 13:12 13:10 12:59 Wound Center Nurse 1 2. right foot 3rd met head -Combined with other wound No -Current Size (cm) - Length 0.7 0.2 0.5 -Current Size (cm) - Width 0.4 1 0.3 -Current Size (cm) - Depth 0.1 0.1 0.2 -Total Square Cm 0.28 0.2 0.15 -Date of Last Picture (Recall this 09/04/23 field) -Photo Taken Yes Yes -Epithelialization Small 1-33% -Tunneling No -Undermining/Tunneling No -Maximum Distance #2 (cm) 0.6 -Circular Undermining Yes No -Exudate Amt Small Small Medium -Exudate Type Serosanguineous Serosanguineous Serosanguineous -Wound Margin Thickened Distinct, Distinct, Outline Outline Attached Attached -Granulation Amt Small (1-33%) Medium (34-66%) Large (67-100%) -Granulation Quality Pale,Olancha Olancha Olancha -Slough/Fibrin Yes -Necrosis Amt Small (1-33%) Small (1-33%) Small (1-33%) -Necrotic Tissue Type Adherent Slough Adherent Slough Adherent Slough -Structure Exposed N/A -Texture (Blaire-wound Skin Appearance) Scarring Callus Assessed, Scarring -Moisture (Blaire-wound Skin Appearance) Dry/Scaly Assessed Assessed,Dry/ Scaly -Color (Blaire-wound Skin Appearance) No Abnormality Assessed Assessed -Temperature (Blaire-wound Skin No Abnormality No Abnormality No Abnormality Appearance) (Pt Warm) (Pt Warm) (Pt Warm) -Tenderness on Palpation (Blaire-wound No No Skin Appearance) -Ulcer Cleansing Not Cleansed Rinsed/ Rinsed/ Irrigated with Irrigated with Saline Saline -Foul Odor after Cleansing No No -Anesthetic Used 5% Lidocaine 5% Lidocaine 5% Lidocaine Gel Gel Gel 09/11/23 13:02 Wound Center Nurse 1 2. right foot 3rd met head -Combined with other wound -Current Size (cm) - Length 0.5 -Current Size (cm) - Width 0.3 -Current Size (cm) - Depth 0.2 -Total Square Cm 0.15 -Date of Last Picture (Recall this field) -Photo Taken Yes -Epithelialization -Tunneling -Undermining/Tunneling -Maximum Distance #2 (cm) -Circular Undermining -Exudate Amt Small -Exudate Type Serosanguineous -Wound Margin Thickened -Granulation Amt None Present (0 %) -Granulation Quality -Slough/Fibrin -Necrosis Amt Small (1-33%) -Necrotic Tissue Type Adherent Slough -Structure Exposed N/A -Texture (Blaire-wound Skin Appearance) Callus,Scarring -Moisture (Blaire-wound Skin Appearance) No Abnormality -Color (Blaire-wound Skin Appearance) No Abnormality -Temperature (Blaire-wound Skin No Abnormality Appearance) (Pt Warm) -Tenderness on Palpation (Blaire-wound No Skin Appearance) -Ulcer Cleansing Soap and Water -Foul Odor after Cleansing No -Anesthetic Used 5% Lidocaine Gel WC - Nurse 2 - General Ulcer CM Notes Start: 08/21/23 13:12 Freq: Status: Active Protocol: Activity Type Activity Date Activity User E-sign Co-sign Detail Recorded Client Recorded Date Recorded By Document 08/21/23 16:18 PL [id number] 08/21/23 16:19 PL Document 08/28/23 15:59 PL [id number] 08/28/23 16:00 PL Document 09/04/23 15:53 PL [id number] 09/04/23 15:55 PL Document 09/11/23 15:35 PL [id number] 09/11/23 15:35 PL 08/21/23 08/28/23 09/04/23 16:18 15:59 15:53 Wound Center Nurse 2 2. right foot 3rd met head -Time 13:54 13:31 13:20 -Correct Patient Yes Yes Yes -Correct Side, Site, Position Yes Yes Yes -Correct Procedure Yes Yes Yes -Procedure Performed Yes Yes Yes -Type of Procedure Debridement Debridement Debridement -Clinical Debridement Subcutaneous Subcutaneous Subcutaneous -Tissue Removed Subcutaneous Subcutaneous Subcutaneous -Post Debridement (cm) - Length 1.0 0.7 0.6 -Post Debridement (cm) - Width 0.7 0.6 0.5 -Post Debridement (cm) - Depth 0.2 0.1 0.1 -Total Square (Post) (cm) 0.70 0.42 0.30 -Area of Debridement (cm) - Length 1.0 0.7 0.6 -Area of Debridement (cm) - Width 0.7 0.6 0.5 -Total Square (Area) (cm) 0.70 0.42 0.30 -Tunneling No No No -Undermining/Tunneling No No No -Circular Undermining No No No -Wound/Ulcer Outcome Not Healed Not Healed Not Healed -Ulcer Cleansing Rinsed/ Rinsed/ Rinsed/ Irrigated with Irrigated with Irrigated with Saline Saline Saline -Foul Odor after Cleansing No No No -Bioengineered Tissue No No No -Bleeding Controlled with Pressure Pressure Pressure -Treatment Response Procedure Procedure Procedure Tolerated Well Tolerated Well Tolerated Well -Debridement - Subq, 1st 20sq cm Yes Yes Yes Pain Scale: 0-10 Numeric Is Patient Pain Free? Yes Yes Yes 09/11/23 15:35 Wound Center Nurse 2 2. right foot 3rd met head -Time 13:28 -Correct Patient Yes -Correct Side, Site, Position Yes -Correct Procedure Yes -Procedure Performed Yes -Type of Procedure Debridement -Clinical Debridement Subcutaneous -Tissue Removed Subcutaneous -Post Debridement (cm) - Length 0.4 -Post Debridement (cm) - Width 0.4 -Post Debridement (cm) - Depth 0.1 -Total Square (Post) (cm) 0.16 -Area of Debridement (cm) - Length 0.4 -Area of Debridement (cm) - Width 0.4 -Total Square (Area) (cm) 0.16 -Tunneling No -Undermining/Tunneling No -Circular Undermining No -Wound/Ulcer Outcome Not Healed -Ulcer Cleansing Rinsed/ Irrigated with Saline -Foul Odor after Cleansing No -Bioengineered Tissue No -Bleeding Controlled with Pressure -Treatment Response Procedure Tolerated Well -Debridement - Subq, 1st 20sq cm Yes Pain Scale: 0-10 Numeric Is Patient Pain Free? Yes - Nurse 3 - General Ulcer D/C NN Start: 08/21/23 13:12 Freq: Status: Active Protocol: Activity Type Activity Date Activity User E-sign Co-sign Detail Recorded Client Recorded Date Recorded By Document 08/21/23 14:29 BMF Desktop 08/21/23 14:29 BM Document 08/28/23 13:48 KW Desktop 08/28/23 13:49 KW Document 09/04/23 13:42 KW Desktop 09/04/23 13:42 KW Document 09/11/23 13:49 KW Desktop 09/11/23 13:50 KW 08/21/23 08/28/23 09/04/23 14:29 13:48 13:42 Wound Care Center Nurse 3 2. right foot 3rd met head -Ulcer Cleansing Rinsed/ Irrigated with Saline -Foul Odor after Cleansing No -Primary Dressing Applied Mepilex Border, Promogran Promogran Promogran Elisa Matter Elisa Matter Elisa Matter -Primary Dressing Covered/Secured with Dry Gauze, Dry Gauze, Secured with Secured with Tape Tape -Mepilex Border 1 -Promogran Elisa Matter 1 1 2 Treatment Response Procedure Tolerated Well Pain Scale: 0-10 Numeric Is Patient Pain Free? Yes Yes Yes WC - Visit Discharge Discharge Condition Stable Stable Stable Ambulatory Status Ambulatory Ambulatory Ambulatory Transportation Private Auto Private Auto Private Auto Medication Reconcilliation completed & No No provided to patient/care provider Clinical Summary of Care Provided Yes Yes 09/11/23 13:49 Wound Care Center Nurse 3 2. right foot 3rd met head -Ulcer Cleansing -Foul Odor after Cleansing -Primary Dressing Applied Promogran Elisa Matter -Primary Dressing Covered/Secured with Dry Gauze & Roll Gauze, Secured with Tape -Mepilex Border -Promogran Elisa Matter 2 Treatment Response Pain Scale: 0-10 Numeric Is Patient Pain Free? Yes WC - Visit Discharge Discharge Condition Stable Ambulatory Status Ambulatory Transportation Private Auto Medication Reconcilliation completed & No provided to patient/care provider Clinical Summary of Care Provided Yes Assessment/Plan Assessment/Plan (1) Diabetic ulcer of right foot associated with diabetes mellitus due to underlying condition, with fat layer exposed: CODE(S): E08.621 - Diabetes mellitus due to underlying condition with foot ulcer; L97.512 - Non-pressure chronic ulcer of other part of right foot with fat layer exposed (2) Amputation of left lower extremity below knee: CODE(S): S88.112A - Complete traumatic amputation at level between knee and ankle, left lower leg, initial encounter PLAN: Plan Debridement performed as noted above the patient tolerated this well. Wound is improved in size this week. Will continue apply lightly moistened Elisa to the wound bed, cover with foam border dressing. Change the dressing daily or more often as needed if it becomes soiled. May wash the area gently with antibacterial soap and water and pat to dry with dressing changes. He was instructed not to submerge the wound in water. I discussed with patient that for now I continue to recommend wearing the surgical shoe as we are seeing good progress with the wound. If he were to transition back to his regular shoe even with the orthotic in place I cannot guarantee that the wound would not regress; however, this is something he is going to try I recommend doing it for only a few hours at a time and closely monitoring the wound. As I am not a space engineer, I am not very familiar with different orthotics or shoes available. Strongly advise him to establish with a space engineer who can provide more specialized evaluation and recommendations in this regard. His insurance is a challenge, but he does indicate a willingness to pay [id number] if affordable so I encouraged him to reach out to Dr. Mitchell's office as he has previously established there. For now, okay to walk as needed but avoid prolonged walking or standing where possible. Elevate leg with resting. He will return to the wound healing center in 1 week.
== END 2023-09-17 23:59 | disposition home or self-care (01) ==
LOC: WC 13:15
PROVIDERS: Visit Provider Physician Assistant
DX: E11.621 Type 2 diabetes mellitus with foot ulcer (principal); Z89.512 Acquired absence of left leg below knee; L97.512 Non-pressure chronic ulcer of other part of right foot with fat layer exposed; Z79.4 Long term (current) use of insulin; Z79.82 Long term (current) use of aspirin
CPT/HCPCS: 11042; 99213; G0463

== ENCOUNTER 2023-10-16 13:45 | Outpatient (RCR) | payer MEDICAID, SELFPAY ==
[2023-09-18 00:39] VITALS: BP 144/54; PULSE 39; RESP 20; TEMP 36.5; BMI 32.5
[2023-09-18 12:57] VITALS: BP 140/63; PULSE 41; RESP 16; TEMP 35.7; BMI 32.5
--- NOTE | 2023-09-19 09:25 | PCM.WC.PN ---
History of Present Illness Date of Service: 09/18/23 Chief Complaint: Right Diabetic Foot Ulcer History of Wound: Mr. Devin Molina is a 63-year-old male who presents to the wound healing center today for evaluation and management of a right diabetic foot ulcer which seems to have formed after he began wearing regular shoes according to records received from prior wound center. This ulceration is on the right lateral foot. This wound has been ongoing for at least the last 2 months. He recently moved back to [place] from [place] where he had been for the past several years. He was receiving care for this ulceration at the wound care center there. He reports they were treating with Apligraf and PuraPly. He reports the wound has been making positive progress over the last few weeks. He is wearing a surgical shoe to keep pressure off of that area. He has been seen here at this wound center multiple times in the past for diabetic foot ulcers, last seen in 2015 before moving to [place]. 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 He had a left lower extremity angiogram with tibial intervention on 01/14/2023 to attempt to improve inflow for limb salvage efforts. Ultimately he did undergo the left BKA on 03/05/2023. Other than this recent angiogram he denies any prior vascular surgical interventions. He did have arterial studies in [place] on 06/17/2023 and the fax report shows a right TEDDY of 1.03 with stenosis of the right SFA. He has a history of poorly controlled diabetes but fortunately now has better control with report of his last A1c 6.8 in May. He did receive new shoe insert from podiatry in [place]. Subjective Subjective Patient reports he is doing well, continues to manage dressings well at home. He denies any nausea, vomiting, fevers, chills, or any other complaints. He reports no significant drainage from the wound, redness or swelling around the wound. Objective Data Objective Data Vital Signs: Vital Signs Temp Pulse Resp BP O2 Del Method 96.2 F L 41 L 16 140/63 H Room Air 09/18/23 12:57 09/18/23 12:57 09/18/23 12:57 09/18/23 12:57 09/18/23 12:57 Oxygen Delivery Method Room Air Weight: 240 lb 1.75 oz Body Mass Index (BMI) 32.5 Charges/Coding Procedures Integumentary 111xxx-113xx: 31330 Violet subq tissue 20 sq cm/< Physical Exam Const alert, oriented x3 and no apparent distress General Appearance: cooperative and comfortable HEENT normocephalic, head/scalp atraumatic, hearing grossly normal bilaterally, external ears normal and external nose normal Eyes EOMs intact bilaterally General Eye: normal appearance of both eyes Neck full ROM General: normal visual inspection and trachea midline Resp normal respiratory effort Effort and Inspection: able to speak in complete sentences; Negative for respiratory distress, labored, stridor, retractions or audible wheezes Cardio regular rate and regular rhythm Extremity Extremity Narrative: Left BKA Palpable right PT, DP diminished to palpation Skin no rashes or lesions noted Wounds: wounds noted Wound Narrative: Small ulceration to the right lateral aspect of the foot. There is granulation tissue at the base, some callus in the periwound. Nearly half the size it was last week. There is no significant tracking. No significant drainage or foul odor. Neuro oriented x3, CN's II-XII intact bilaterally, moves all extremities and no focal motor deficits Speech: speech normal Psych mental status grossly normal Appearance: grossly normal Attitude: calm and engaged Activity / Motor Behavior: appropriate eye contact Speech: normal speech Judgement: judgement good Debridement Note Debridement Note Wound debrided: Right lateral foot Laterality: Right Type of Debridement: Excisional debridement Anesthesia Used: 5% Lidocaine Gel Depth: in the subcutaneous layer Percentage of wound debrided: 100 Instrument Used: 5mm curette Tissue Removed: Callus, slough, devitalized tissue Severity: Fat Layer Exposed Amount of bleeding with debridement: Mild Bleeding Controlled with: Pressure Patient tolerated procedure: Patient tolerated procedure well Post-Debridement Measurements and Additional Note: Post-Debridement Measurements/Treatment - Nurse 1 - General Ulcer Assessment Start: 09/18/23 12:55 Freq: Status: Active Protocol: BERE Activity Type Activity Date Activity User E-sign Co-sign Detail Recorded Client Recorded Date Recorded By Document 09/18/23 12:57 [facility] Desktop 09/18/23 13:03 [facility] 09/18/23 12:57 - Today's Visit Information Type of service Follow-up Visit (Physician/SUPERVISOR IN CHARGE ) Arrival Mode Ambulatory Transfer Assistance None Patient Identification Verified (Name & Yes ) Patient Requires Transmission-Based No Precautions Height and Weight Body Mass Index (BMI) 32.5 BMI Classification Obese Vital Signs Temperature (97.8 F-99.1 F) 96.2 F L Temperature Source Temporal Pulse Rate (60-100) 41 L Pulse Location Monitor Respiratory Rate (12-18) 16 Respiratory rate source Observation Oxygen Delivery Method Room Air Blood Pressure (90/60-120/80) 140/63 H Blood Pressure Mean (mm Hg) 88 Source Monitor Position Sitting Blood Pressure Location Left Arm History Since Last Visit- (Skip if this is Patient's initial visit) Have you changed medications since your No last visit? Any new allergies or adverse reactions No Had a fall/change in ADL's that may No increase risk of falls Signs or symptoms of abuse and/or No neglect since last visit Have you been in the hospital since your No last visit? Has dressing in place as prescribed Yes Has offloadiing in place as prescribed Yes Experienced any changes in pain level or No management Left Footwear Regular Shoe Right Footwear Surgical Shoe with pressure relief insole Pain Scale: 0-10 Numeric Is Patient Pain Free? Yes WC - Nurse 1 - General Ulcer Measurement Start: 09/18/23 12:55 Freq: Status: Active Protocol: Activity Type Activity Date Activity User E-sign Co-sign Detail Recorded Client Recorded Date Recorded By Document 09/18/23 12:57 [facility] Desktop 09/18/23 13:03 [facility] Edit Result 09/18/23 12:57 BM[facility] (1) Desktop 09/18/23 13:04 BM[facility] (1) 2. right foot 3rd met head - Current Size (cm) - Length 0.1 => 0.2 - Total Square Cm 0.01 => 0.02 09/18/23 12:57 Wound Center Nurse 1 2. right foot 3rd met head -Combined with other wound No -Current Size (cm) - Length 0.2 -Current Size (cm) - Width 0.1 -Current Size (cm) - Depth 0.2 -Total Square Cm 0.02 -Date of Last Picture (Recall this 09/18/23 field) -Photo Taken Yes -Epithelialization Medium 34-66% -Tunneling No -Undermining/Tunneling No -Circular Undermining No -Exudate Amt Small -Exudate Type Serosanguineous -Wound Margin Distinct, Outline Attached -Granulation Amt Large (67-100%) -Granulation Quality Vamo -Slough/Fibrin Yes -Necrosis Amt Small (1-33%) -Necrotic Tissue Type Adherent Slough -Texture (Blaire-wound Skin Appearance) Assessed, Scarring -Moisture (Blaire-wound Skin Appearance) Assessed,Dry/ Scaly -Color (Blaire-wound Skin Appearance) Assessed -Temperature (Blaire-wound Skin No Abnormality Appearance) (Pt Warm) -Tenderness on Palpation (Blaire-wound No Skin Appearance) -Ulcer Cleansing Rinsed/ Irrigated with Saline -Foul Odor after Cleansing No -Anesthetic Used 5% Lidocaine Gel WC - Nurse 2 - General Ulcer CM Notes Start: 09/18/23 12:55 Freq: Status: Active Protocol: Activity Type Activity Date Activity User E-sign Co-sign Detail Recorded Client Recorded Date Recorded By Document 09/18/23 16:19 PL [id number] 09/18/23 16:20 PL 09/18/23 16:19 Wound Center Nurse 2 -Time 13:22 -Correct Patient Yes -Correct Side, Site, Position Yes -Correct Procedure Yes -Procedure Performed Yes -Type of Procedure Debridement -Clinical Debridement Subcutaneous -Tissue Removed Subcutaneous -Post Debridement (cm) - Length 0.2 -Post Debridement (cm) - Width 0.2 -Post Debridement (cm) - Depth 0.1 -Total Square (Post) (cm) 0.04 -Area of Debridement (cm) - Length 0.2 -Area of Debridement (cm) - Width 0.2 -Total Square (Area) (cm) 0.04 -Tunneling No -Undermining/Tunneling No -Circular Undermining No -Wound/Ulcer Outcome Not Healed -Ulcer Cleansing Rinsed/ Irrigated with Saline -Foul Odor after Cleansing No -Bioengineered Tissue No -Bleeding Controlled with Pressure -Treatment Response Procedure Tolerated Well -Debridement - Subq, 1st 20sq cm Yes Pain Scale: 0-10 Numeric Is Patient Pain Free? Yes GERRI - Nurse 3 - General Ulcer D/C NN Start: 09/18/23 12:55 Freq: Status: Active Protocol: Activity Type Activity Date Activity User E-sign Co-sign Detail Recorded Client Recorded Date Recorded By Document 09/18/23 13:33 [facility] Desktop 09/18/23 13:34 [facility] 09/18/23 13:33 Wound Care Center Nurse 3 2. right foot 3rd met head -Ulcer Cleansing Rinsed/ Irrigated with Saline -Foul Odor after Cleansing No -Primary Dressing Applied Promogran Elisa Matter -Primary Dressing Covered/Secured with Dry Gauze, Secured with Tape -Promogran Elisa Matter 1 Treatment Response Procedure Tolerated Well Pain Scale: 0-10 Numeric Is Patient Pain Free? Yes WC - Visit Discharge Discharge Condition Stable Ambulatory Status Ambulatory Transportation Private Auto Assessment/Plan Assessment/Plan (1) Diabetic ulcer of right foot associated with diabetes mellitus due to underlying condition, with fat layer exposed: CODE(S): E08.621 - Diabetes mellitus due to underlying condition with foot ulcer; L97.512 - Non-pressure chronic ulcer of other part of right foot with fat layer exposed (2) Amputation of left lower extremity below knee: CODE(S): S88.112A - Complete traumatic amputation at level between knee and ankle, left lower leg, initial encounter PLAN: Plan Debridement performed as noted above the patient tolerated this well. Wound is improved in size this week. Will continue apply lightly moistened Elisa to the wound bed, cover with foam border dressing. Change the dressing daily or more often as needed if it becomes soiled. May wash the area gently with antibacterial soap and water and pat to dry with dressing changes. He was instructed not to submerge the wound in water. I discussed with patient that for now I continue to recommend wearing the surgical shoe as we are seeing good progress with the wound. He is still working on establishing care with podiatry. For now, okay to continue to walk as needed but avoid prolonged walking or standing where possible. Elevate leg with resting. He will return to the wound healing center in 1 week.
[2023-09-25 13:15] VITALS: RESP 18; TEMP 36.1; BMI 32.5
--- NOTE | 2023-09-26 08:32 | PCM.WC.PN ---
History of Present Illness Date of Service: 09/25/23 Chief Complaint: Right Diabetic Foot Ulcer History of Wound: Mr. Devin Molina is a 63-year-old male who presents to the wound healing center today for evaluation and management of a right diabetic foot ulcer which seems to have formed after he began wearing regular shoes according to records received from prior wound center. This ulceration is on the right lateral foot. This wound has been ongoing for at least the last 2 months. He recently moved back to [place] from [place] where he had been for the past several years. He was receiving care for this ulceration at the wound care center there. He reports they were treating with Apligraf and PuraPly. He reports the wound has been making positive progress over the last few weeks. He is wearing a surgical shoe to keep pressure off of that area. He has been seen here at this wound center multiple times in the past for diabetic foot ulcers, last seen in 2015 before moving to [place]. 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 He had a left lower extremity angiogram with tibial intervention on 01/14/2023 to attempt to improve inflow for limb salvage efforts. Ultimately he did undergo the left BKA on 03/05/2023. Other than this recent angiogram he denies any prior vascular surgical interventions. He did have arterial studies in [place] on 06/17/2023 and the fax report shows a right TEDDY of 1.03 with stenosis of the right SFA. He has a history of poorly controlled diabetes but fortunately now has better control with report of his last A1c 6.8 in May. He did receive new shoe insert from podiatry in [place]. Subjective Subjective Continued improvement in the size of the wound. He continues to use the surgical shoe. He recently established with Dr. Simons for PCP, he reports his A1c went down slightly to 6.7. He has not yet re-established care with Dr. Waldrop but reports that Dr. Simons is sending a referral to try to help with this. No new wounds, pain, N/V, F/C. Objective Data Objective Data Vital Signs: Vital Signs Temp Pulse Resp BP O2 Del Method 96.9 F L 41 L 18 140/63 H Room Air 09/25/23 13:15 09/18/23 12:57 09/25/23 13:15 09/18/23 12:57 09/25/23 13:15 Oxygen Delivery Method Room Air Weight: 240 lb 1.75 oz Body Mass Index (BMI) 32.5 Charges/Coding Procedures Integumentary 111xxx-113xx: 03252 Violet subq tissue 20 sq cm/< Physical Exam Const alert, oriented x3 and no apparent distress General Appearance: cooperative and comfortable HEENT normocephalic, head/scalp atraumatic, hearing grossly normal bilaterally, external ears normal and external nose normal Eyes EOMs intact bilaterally General Eye: normal appearance of both eyes Neck full ROM General: normal visual inspection and trachea midline Resp normal respiratory effort Effort and Inspection: able to speak in complete sentences; Negative for respiratory distress, labored, stridor, retractions or audible wheezes Cardio regular rate and regular rhythm Extremity Extremity Narrative: Left BKA Palpable right PT, DP diminished to palpation Skin no rashes or lesions noted Wounds: wounds noted Wound Narrative: Small ulceration to the right lateral aspect of the foot. There is granulation tissue at the base, some callus in the periwound. Continues to decrease in size. There is no significant tracking. No significant drainage or foul odor. Neuro oriented x3, CN's II-XII intact bilaterally, moves all extremities and no focal motor deficits Speech: speech normal Psych mental status grossly normal Appearance: grossly normal Attitude: calm and engaged Activity / Motor Behavior: appropriate eye contact Speech: normal speech Judgement: judgement good Debridement Note Debridement Note Wound debrided: Right lateral foot Laterality: Right Type of Debridement: Excisional debridement Anesthesia Used: 5% Lidocaine Gel Depth: in the subcutaneous layer Percentage of wound debrided: 100 Instrument Used: 5mm curette Tissue Removed: Callus, slough, devitalized tissue Severity: Fat Layer Exposed Amount of bleeding with debridement: Mild Bleeding Controlled with: Pressure Patient tolerated procedure: Patient tolerated procedure well Post-Debridement Measurements and Additional Note: Post-Debridement Measurements/Treatment WC - Nurse 1 - General Ulcer Assessment Start: 09/18/23 12:55 Freq: Status: Active Protocol: BERE Activity Type Activity Date Activity User E-sign Co-sign Detail Recorded Client Recorded Date Recorded By Document 02/01/24 12:57 [facility] Desktop 09/18/23 13:03 [facility] Document 09/25/23 13:15 KW Desktop 09/25/23 13:21 KW 09/18/23 09/25/23 12:57 13:15 - Today's Visit Information Type of service Follow-up Visit Follow-up Visit (Physician/CREDIT COLLECTIONS ANALYST (Physician/CREDIT COLLECTIONS ANALYST ) ) Arrival Mode Ambulatory Ambulatory Transfer Assistance None Patient Identification Verified (Name & Yes Yes ) Patient Requires Transmission-Based No Precautions Height and Weight Body Mass Index (BMI) 32.5 32.5 BMI Classification Obese Obese Vital Signs Temperature (97.8 F-99.1 F) 96.2 F L 96.9 F L Temperature Source Temporal Temporal Pulse Rate (60-100) 41 L Pulse Location Monitor Respiratory Rate (12-18) 16 18 Respiratory rate source Observation Observation Oxygen Delivery Method Room Air Room Air Blood Pressure (90/60-120/80) 140/63 H Blood Pressure Mean (mm Hg) 88 Source Monitor Position Sitting Blood Pressure Location Left Arm History Since Last Visit- (Skip if this is Patient's initial visit) Have you changed medications since your No No last visit? Any new allergies or adverse reactions No No Had a fall/change in ADL's that may No No increase risk of falls Signs or symptoms of abuse and/or No No neglect since last visit Have you been in the hospital since your No No last visit? Has dressing in place as prescribed Yes Yes Has compression in place as prescribed N/A Has offloadiing in place as prescribed Yes Yes Experienced any changes in pain level or No No management Left Footwear Regular Shoe Regular Shoe Right Footwear Surgical Shoe Surgical Shoe with pressure with pressure relief insole relief insole Pain Scale: 0-10 Numeric Is Patient Pain Free? Yes Yes - Nurse 1 - General Ulcer Measurement Start: 09/18/23 12:55 Freq: Status: Active Protocol: Activity Type Activity Date Activity User E-sign Co-sign Detail Recorded Client Recorded Date Recorded By Document 09/18/23 12:57 [facility] Desktop 09/18/23 13:03 [facility] Edit Result 09/18/23 12:57 BMF (1) Desktop 09/18/23 13:04 BMF Document 09/25/23 13:15 KW Desktop 09/25/23 13:21 KW (1) 2. right foot 3rd met head - Current Size (cm) - Length 0.1 => 0.2 - Total Square Cm 0.01 => 0.02 09/18/23 09/25/23 12:57 13:15 Wound Center Nurse 1 2. right foot 3rd met head -Combined with other wound No -Current Size (cm) - Length 0.2 0.1 -Current Size (cm) - Width 0.1 0.1 -Current Size (cm) - Depth 0.2 0.1 -Total Square Cm 0.02 0.01 -Date of Last Picture (Recall this 09/18/23 09/25/23 field) -Photo Taken Yes Yes -Epithelialization Medium 34-66% -Tunneling No -Undermining/Tunneling No -Circular Undermining No -Exudate Amt Small -Exudate Type Serosanguineous -Wound Margin Distinct, Outline Attached -Granulation Amt Large (67-100%) -Granulation Quality Attalla -Slough/Fibrin Yes -Necrosis Amt Small (1-33%) -Necrotic Tissue Type Adherent Slough -Texture (Blaire-wound Skin Appearance) Assessed, Scarring -Moisture (Blaire-wound Skin Appearance) Assessed,Dry/ Dry/Scaly Scaly -Color (Blaire-wound Skin Appearance) Assessed -Temperature (Blaire-wound Skin No Abnormality Appearance) (Pt Warm) -Tenderness on Palpation (Blaire-wound No Skin Appearance) -Ulcer Cleansing Rinsed/ Rinsed/ Irrigated with Irrigated with Saline Saline -Foul Odor after Cleansing No -Anesthetic Used 5% Lidocaine 5% Lidocaine Gel Gel WC - Nurse 2 - General Ulcer CM Notes Start: 09/18/23 12:55 Freq: Status: Active Protocol: Activity Type Activity Date Activity User E-sign Co-sign Detail Recorded Client Recorded Date Recorded By Document 09/18/23 16:19 PL [id number] 09/18/23 16:20 PL Document 09/25/23 15:59 PL [id number] 09/25/23 16:00 PL 09/18/23 09/25/23 16:19 15:59 Wound Center Nurse 2 2. right foot 3rd met head -Time 13:22 13:38 -Correct Patient Yes Yes -Correct Side, Site, Position Yes Yes -Correct Procedure Yes Yes -Procedure Performed Yes Yes -Type of Procedure Debridement Debridement -Clinical Debridement Subcutaneous Subcutaneous -Tissue Removed Subcutaneous Subcutaneous -Post Debridement (cm) - Length 0.2 0.2 -Post Debridement (cm) - Width 0.2 0.1 -Post Debridement (cm) - Depth 0.1 0.1 -Total Square (Post) (cm) 0.04 0.02 -Area of Debridement (cm) - Length 0.2 0.2 -Area of Debridement (cm) - Width 0.2 0.1 -Total Square (Area) (cm) 0.04 0.02 -Tunneling No No -Undermining/Tunneling No No -Circular Undermining No No -Wound/Ulcer Outcome Not Healed Not Healed -Ulcer Cleansing Rinsed/ Rinsed/ Irrigated with Irrigated with Saline Saline -Foul Odor after Cleansing No No -Bioengineered Tissue No No -Bleeding Controlled with Pressure Pressure -Treatment Response Procedure Procedure Tolerated Well Tolerated Well -Debridement - Subq, 1st 20sq cm Yes Yes Pain Scale: 0-10 Numeric Is Patient Pain Free? Yes Yes - Nurse 3 - General Ulcer D/C NN Start: 09/18/23 12:55 Freq: Status: Active Protocol: Activity Type Activity Date Activity User E-sign Co-sign Detail Recorded Client Recorded Date Recorded By Document 09/18/23 13:33 [facility] Desktop 09/18/23 13:34 [facility] Document 09/25/23 13:59 Desktop 09/25/23 14:00 DL 09/18/23 09/25/23 13:33 13:59 Wound Care Center Nurse 3 2. right foot 3rd met head -Ulcer Cleansing Rinsed/ Rinsed/ Irrigated with Irrigated with Saline Saline -Foul Odor after Cleansing No No -Primary Dressing Applied Promogran Promogran Elisa Matter Elisa Matter -Primary Dressing Covered/Secured with Dry Gauze, Dry Gauze, Secured with Secured with Tape Tape -Promogran Elisa Matter 1 1 Treatment Response Procedure Procedure Tolerated Well Tolerated Well Pain Scale: 0-10 Numeric Is Patient Pain Free? Yes Yes - Visit Discharge Discharge Condition Stable Stable Ambulatory Status Ambulatory Ambulatory Transportation Private Auto Private Auto Facility Type Home Health Orders Sent Yes Assessment/Plan Assessment/Plan (1) Diabetic ulcer of right foot associated with diabetes mellitus due to underlying condition, with fat layer exposed: CODE(S): E08.621 - Diabetes mellitus due to underlying condition with foot ulcer; L97.512 - Non-pressure chronic ulcer of other part of right foot with fat layer exposed QUALIFIERS: Diabetic foot ulcer location: unspecified part of foot Qualified Code(s): E08.621 - Diabetes mellitus due to underlying condition with foot ulcer; L97.512 - Non-pressure chronic ulcer of other part of right foot with fat layer exposed (2) Amputation of left lower extremity below knee: CODE(S): S88.112A - Complete traumatic amputation at level between knee and ankle, left lower leg, initial encounter PLAN: Plan Debridement performed as noted above the patient tolerated this well. Wound is improved in size this week. Will continue apply lightly moistened Elisa to the wound bed, cover with foam border dressing. Change the dressing daily or more often as needed if it becomes soiled. May wash the area gently with antibacterial soap and water and pat to dry with dressing changes. He was instructed not to submerge the wound in water. I continue to recommend wearing the surgical shoe as we are seeing good progress with the wound. He is still working on establishing care with podiatry. For now, okay to continue to walk as needed but avoid prolonged walking or standing where possible. Elevate leg with resting. He will return to the wound healing center in 1 week.
[2023-10-02 13:00] VITALS: RESP 16; TEMP 36.1; BMI 32.5
--- NOTE | 2023-10-03 08:02 | PCM.WC.PN ---
History of Present Illness Date of Service: 10/02/23 Chief Complaint: Right Diabetic Foot Ulcer History of Wound: Mr. Devin Molina is a 63-year-old male who presents to the wound healing center today for evaluation and management of a right diabetic foot ulcer which seems to have formed after he began wearing regular shoes according to records received from prior wound center. This ulceration is on the right lateral foot. This wound has been ongoing for at least the last 2 months. He recently moved back to [place] from [place] where he had been for the past several years. He was receiving care for this ulceration at the wound care center there. He reports they were treating with Apligraf and PuraPly. He reports the wound has been making positive progress over the last few weeks. He is wearing a surgical shoe to keep pressure off of that area. He has been seen here at this wound center multiple times in the past for diabetic foot ulcers, last seen in 2015 before moving to [place]. 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 He had a left lower extremity angiogram with tibial intervention on 01/14/2023 to attempt to improve inflow for limb salvage efforts. Ultimately he did undergo the left BKA on 03/05/2023. Other than this recent angiogram he denies any prior vascular surgical interventions. He did have arterial studies in [place] on 06/17/2023 and the fax report shows a right TEDDY of 1.03 with stenosis of the right SFA. He has a history of poorly controlled diabetes but fortunately now has better control with report of his last A1c 6.8 in May. He did receive new shoe insert from podiatry in [place]. Subjective Subjective Patient reports feels the wound is healed today. He has not had any drainage or bleeding from this area. Objective Data Objective Data Vital Signs: Vital Signs Temp Pulse Resp BP O2 Del Method 96.9 F L 41 L 16 140/63 H Room Air 10/02/23 13:00 09/18/23 12:57 10/02/23 13:00 09/18/23 12:57 10/02/23 13:00 Oxygen Delivery Method Room Air Weight: 240 lb 1.75 oz Body Mass Index (BMI) 32.5 Charges/Coding Visit Charges Office Visits / Consults: 11377 OV L3 Est 20min Physical Exam Const alert, oriented x3 and no apparent distress General Appearance: cooperative and comfortable HEENT normocephalic, head/scalp atraumatic, hearing grossly normal bilaterally, external ears normal and external nose normal Eyes EOMs intact bilaterally General Eye: normal appearance of both eyes Neck full ROM General: normal visual inspection and trachea midline Resp normal respiratory effort Effort and Inspection: able to speak in complete sentences; Negative for respiratory distress, labored, stridor, retractions or audible wheezes Cardio regular rate and regular rhythm Extremity Extremity Narrative: Left BKA Palpable right PT, DP diminished to palpation Skin no rashes or lesions noted Wounds: wounds noted Wound Narrative: His wound has epithelialized. Neuro oriented x3, CN's II-XII intact bilaterally, moves all extremities and no focal motor deficits Speech: speech normal Psych mental status grossly normal Appearance: grossly normal Attitude: calm and engaged Activity / Motor Behavior: appropriate eye contact Speech: normal speech Judgement: judgement good Debridement Note Debridement Note No debridement was completed: No debridement was completed today Post-Debridement Measurements and Additional Note: Post-Debridement Measurements/Treatment - Nurse 1 - General Ulcer Assessment Start: 09/18/23 12:55 Freq: Status: Active Protocol: BERE Activity Type Activity Date Activity User E-sign Co-sign Detail Recorded Client Recorded Date Recorded By Document 09/18/23 12:57 [employer] 09/18/23 13:03 [employer] Document 09/25/23 13:15 [employer] 09/25/23 13:21 [employer] Document 10/02/23 13:00 [employer] 10/02/23 13:06 [employer] 09/18/23 09/25/23 10/02/23 12:57 13:15 13:00 - Today's Visit Information Type of service Follow-up Visit Follow-up Visit Follow-up Visit (Physician/MANAGER TRAINEE (Physician/MANAGER TRAINEE (Physician/MANAGER TRAINEE ) ) ) Arrival Mode Ambulatory Ambulatory Ambulatory Transfer Assistance None None Patient Identification Verified (Name & Yes Yes Yes ) Patient Requires Transmission-Based No No Precautions Height and Weight Body Mass Index (BMI) 32.5 32.5 32.5 BMI Classification Obese Obese Obese Vital Signs Temperature (97.8 F-99.1 F) 96.2 F L 96.9 F L 96.9 F L Temperature Source Temporal Temporal Temporal Pulse Rate (60-100) 41 L Pulse Location Monitor Monitor Respiratory Rate (12-18) 16 18 16 Respiratory rate source Observation Observation Observation Oxygen Delivery Method Room Air Room Air Room Air Blood Pressure (90/60-120/80) 140/63 H Blood Pressure Mean (mm Hg) 88 Source Monitor Monitor Position Sitting Sitting Blood Pressure Location Left Arm Left Arm History Since Last Visit- (Skip if this is Patient's initial visit) Have you changed medications since your No No No last visit? Any new allergies or adverse reactions No No No Had a fall/change in ADL's that may No No No increase risk of falls Signs or symptoms of abuse and/or No No No neglect since last visit Have you been in the hospital since your No No No last visit? Has dressing in place as prescribed Yes Yes Yes Has compression in place as prescribed N/A N/A Has offloadiing in place as prescribed Yes Yes Yes Experienced any changes in pain level or No No No management Left Footwear Regular Shoe Regular Shoe Right Footwear Surgical Shoe Surgical Shoe Surgical Shoe with pressure with pressure with pressure relief insole relief insole relief insole Pain Scale: 0-10 Numeric Is Patient Pain Free? Yes Yes Yes WC - Nurse 1 - General Ulcer Measurement Start: 09/18/23 12:55 Freq: Status: Active Protocol: Activity Type Activity Date Activity User E-sign Co-sign Detail Recorded Client Recorded Date Recorded By Document 09/18/23 12:57 BMF Desktop 09/18/23 13:03 BMF Edit Result 09/18/23 12:57 BMF (1) Desktop 09/18/23 13:04 BMF Document 09/25/23 13:15 KW Desktop 09/25/23 13:21 KW Document 10/02/23 13:00 BMF Desktop 10/02/23 13:06 BMF (1) 2. right foot 3rd met head - Current Size (cm) - Length 0.1 => 0.2 - Total Square Cm 0.01 => 0.02 09/18/23 09/25/23 10/02/23 12:57 13:15 13:00 Wound Center Nurse 1 2. right foot 3rd met head -Combined with other wound No No -Current Size (cm) - Length 0.2 0.1 0.2 -Current Size (cm) - Width 0.1 0.1 0.1 -Current Size (cm) - Depth 0.2 0.1 0.1 -Total Square Cm 0.02 0.01 0.02 -Date of Last Picture (Recall this 09/18/23 09/25/23 10/02/23 field) -Photo Taken Yes Yes Yes -Epithelialization Medium 34-66% -Tunneling No No -Undermining/Tunneling No No -Circular Undermining No No -Exudate Amt Small None Present -Exudate Type Serosanguineous -Wound Margin Distinct, Outline Attached -Granulation Amt Large (67-100%) Large (67-100%) -Granulation Quality [place] -Slough/Fibrin Yes -Necrosis Amt Small (1-33%) -Necrotic Tissue Type Adherent Slough -Texture (Blaire-wound Skin Appearance) Assessed, Assessed, Scarring Scarring -Moisture (Blaire-wound Skin Appearance) Assessed,Dry/ Dry/Scaly Assessed,Dry/ Scaly Scaly -Color (Blaire-wound Skin Appearance) Assessed Assessed -Temperature (Blaire-wound Skin No Abnormality No Abnormality Appearance) (Pt Warm) (Pt Warm) -Tenderness on Palpation (Blaire-wound No No Skin Appearance) -Ulcer Cleansing Rinsed/ Rinsed/ Rinsed/ Irrigated with Irrigated with Irrigated with Saline Saline Saline -Foul Odor after Cleansing No No -Anesthetic Used 5% Lidocaine 5% Lidocaine 5% Lidocaine Gel Gel Gel WC - Nurse 2 - General Ulcer CM Notes Start: 09/18/23 12:55 Freq: Status: Active Protocol: Activity Type Activity Date Activity User E-sign Co-sign Detail Recorded Client Recorded Date Recorded By Document 09/18/23 16:19 PL [id number] 09/18/23 16:20 PL Document 09/25/23 15:59 PL [id number] 09/25/23 16:00 PL Document 10/02/23 13:15 Desktop 10/02/23 13:17 09/18/23 09/25/23 10/02/23 16:19 15:59 13:15 Wound Center Nurse 2 2. right foot 3rd met head -Time 13:22 13:38 13:15 -Correct Patient Yes Yes Yes -Correct Side, Site, Position Yes Yes Yes -Correct Procedure Yes Yes Yes -Procedure Performed Yes Yes -Type of Procedure Debridement Debridement -Clinical Debridement Subcutaneous Subcutaneous -Tissue Removed Subcutaneous Subcutaneous -Post Debridement (cm) - Length 0.2 0.2 -Post Debridement (cm) - Width 0.2 0.1 -Post Debridement (cm) - Depth 0.1 0.1 -Total Square (Post) (cm) 0.04 0.02 -Area of Debridement (cm) - Length 0.2 0.2 -Area of Debridement (cm) - Width 0.2 0.1 -Total Square (Area) (cm) 0.04 0.02 -Tunneling No No -Undermining/Tunneling No No -Circular Undermining No No -Wound/Ulcer Outcome Not Healed Not Healed Healed- Epithelialized -Ulcer Cleansing Rinsed/ Rinsed/ Irrigated with Irrigated with Saline Saline -Foul Odor after Cleansing No No -Bioengineered Tissue No No -Bleeding Controlled with Pressure Pressure -Treatment Response Procedure Procedure Tolerated Well Tolerated Well -Debridement - Subq, 1st 20sq cm Yes Yes Pain Scale: 0-10 Numeric Is Patient Pain Free? Yes Yes Yes - Nurse 3 - General Ulcer D/C NN Start: 09/18/23 12:55 Freq: Status: Active Protocol: Activity Type Activity Date Activity User E-sign Co-sign Detail Recorded Client Recorded Date Recorded By Document 09/18/23 13:33 [facility] Desktop 09/18/23 13:34 [facility] Document 09/25/23 13:59 DL Desktop 09/25/23 14:00 DL Document 10/02/23 13:19 Desktop 10/02/23 13:20 09/18/23 09/25/23 10/02/23 13:33 13:59 13:19 Wound Care Center Nurse 3 2. right foot 3rd met head -Ulcer Cleansing Rinsed/ Rinsed/ Not Cleansed Irrigated with Irrigated with Saline Saline -Foul Odor after Cleansing No No No -Primary Dressing Applied Promogran Promogran C Hydrogel ($), Elisa Matter Elisa Matter Mepilex Border -Primary Dressing Covered/Secured with Dry Gauze, Dry Gauze, Secured with Secured with Tape Tape -Mepilex Border 1 -Promogran Elisa Matter 1 1 Treatment Response Procedure Procedure Tolerated Well Tolerated Well Pain Scale: 0-10 Numeric Is Patient Pain Free? Yes Yes Yes WC - Visit Discharge Discharge Condition Stable Stable Stable Ambulatory Status Ambulatory Ambulatory Ambulatory Transportation Private Auto Private Auto Private Auto Medication Reconcilliation completed & Yes provided to patient/care provider Clinical Summary of Care Provided Yes Facility Type Home Health Orders Sent Yes Assessment/Plan Assessment/Plan (1) Diabetic ulcer of right foot associated with diabetes mellitus due to underlying condition, with fat layer exposed: CODE(S): E08.621 - Diabetes mellitus due to underlying condition with foot ulcer; L97.512 - Non-pressure chronic ulcer of other part of right foot with fat layer exposed QUALIFIERS: Diabetic foot ulcer location: unspecified part of foot Qualified Code(s): E08.621 - Diabetes mellitus due to underlying condition with foot ulcer; L97.512 - Non-pressure chronic ulcer of other part of right foot with fat layer exposed (2) Amputation of left lower extremity below knee: CODE(S): S88.112A - Complete traumatic amputation at level between knee and ankle, left lower leg, initial encounter PLAN: Plan His wound has epithelialized. I do recommend applying collagen hydrogel and continuing to cover with a foam border or other bulky dressing for another 1 to 2 weeks to pad and protect the area. He may try to wear his new orthotics, but again I do recommend continuing to pad this area when he does so to protect it. He should discontinue these orthotics if he should notice skin breakdown in this area. I do still strongly encourage him to establish care with a mri supervisor for ongoing foot care and for any potential need for orthotic adjustments. He may need to look outside of [facility] to find a mri supervisor that is in-network with his insurance, I advise he contact his insurance to see what providers are available. He will follow-up with me in 1-2 weeks for a wound check.
[2023-10-16 13:40] VITALS: BMI 32.5
--- NOTE | 2023-10-16 19:03 | PCM.WC.PN ---
History of Present Illness Date of Service: 10/16/23 Chief Complaint: Right Diabetic Foot Ulcer History of Wound: Mr. Devin Molina is a 63-year-old male who presents to the wound healing center today for evaluation and management of a right diabetic foot ulcer which seems to have formed after he began wearing regular shoes according to records received from prior wound center. This ulceration is on the right lateral foot. This wound has been ongoing for at least the last 2 months. He recently moved back to [place] from [place] where he had been for the past several years. He was receiving care for this ulceration at the wound care center there. He reports they were treating with Apligraf and PuraPly. He reports the wound has been making positive progress over the last few weeks. He is wearing a surgical shoe to keep pressure off of that area. He has been seen here at this wound center multiple times in the past for diabetic foot ulcers, last seen in 2015 before moving to [place]. 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 He had a left lower extremity angiogram with tibial intervention on 01/14/2023 to attempt to improve inflow for limb salvage efforts. Ultimately he did undergo the left BKA on 03/05/2023. Other than this recent angiogram he denies any prior vascular surgical interventions. He did have arterial studies in [place] on 06/17/2023 and the fax report shows a right TEDDY of 1.03 with stenosis of the right SFA. He has a history of poorly controlled diabetes but fortunately now has better control with report of his last A1c 6.8 in May. He did receive new shoe insert from podiatry in [place]. Subjective Subjective He returns today for a wound check after 2 weeks. He has been wearing his new orthopedic shoe, had some adjustments by [place]. He has been padding as recommended and has not noticed any wound recurrence or new wounds. Objective Data Objective Data Vital Signs: Vital Signs Temp Pulse Resp BP O2 Del Method 96.9 F L 41 L 16 140/63 H Room Air 10/02/23 13:00 09/18/23 12:57 10/02/23 13:00 09/18/23 12:57 10/02/23 13:00 Oxygen Delivery Method Room Air Weight: 240 lb 1.75 oz Body Mass Index (BMI) 32.5 Charges/Coding Visit Charges Office Visits / Consults: 36926 OV L3 Est 20min Physical Exam Const alert, oriented x3 and no apparent distress General Appearance: cooperative and comfortable HEENT normocephalic, head/scalp atraumatic, hearing grossly normal bilaterally, external ears normal and external nose normal Eyes EOMs intact bilaterally General Eye: normal appearance of both eyes Neck full ROM General: normal visual inspection and trachea midline Resp normal respiratory effort Effort and Inspection: able to speak in complete sentences; Negative for respiratory distress, labored, stridor, retractions or audible wheezes Cardio regular rate and regular rhythm Extremity Extremity Narrative: Left BKA Palpable right PT, DP diminished to palpation Skin no rashes or lesions noted Wounds: wounds noted Wound Narrative: His wound remains epithelialized. Neuro oriented x3, CN's II-XII intact bilaterally, moves all extremities and no focal motor deficits Speech: speech normal Psych mental status grossly normal Appearance: grossly normal Attitude: calm and engaged Activity / Motor Behavior: appropriate eye contact Speech: normal speech Judgement: judgement good Assessment/Plan Assessment/Plan (1) Diabetic ulcer of right foot associated with diabetes mellitus due to underlying condition, with fat layer exposed: CODE(S): E08.621 - Diabetes mellitus due to underlying condition with foot ulcer; L97.512 - Non-pressure chronic ulcer of other part of right foot with fat layer exposed QUALIFIERS: Diabetic foot ulcer location: unspecified part of foot Qualified Code(s): E08.621 - Diabetes mellitus due to underlying condition with foot ulcer; L97.512 - Non-pressure chronic ulcer of other part of right foot with fat layer exposed (2) Amputation of left lower extremity below knee: CODE(S): S88.112A - Complete traumatic amputation at level between knee and ankle, left lower leg, initial encounter PLAN: Plan His wound remains epithelialized, no new wounds. He should continue to monitor his foot daily for recurrence. He should discontinue these orthotics if he should notice skin breakdown in this area,, return to the surgical shoe, and notify his PCP/director chemistry or return here. I do still strongly encourage him to establish care with a director chemistry for ongoing foot care and for any potential need for orthotic adjustments. He will return as needed.
--- NOTE | 2023-10-24 12:43 | WC ---
2.15.24 RT LAT FT
== END 2023-10-16 15:15 | disposition home or self-care (01) ==
LOC: WC 13:45
PROVIDERS: Visit Provider Physician Assistant
DX: E11.621 Type 2 diabetes mellitus with foot ulcer (principal); L97.512 Non-pressure chronic ulcer of other part of right foot with fat layer exposed; Z89.512 Acquired absence of left leg below knee
CPT/HCPCS: 11042; 99213; G0463

== ENCOUNTER → 2024-02-09 | Outpatient (CLI) | payer MEDICAID, SELFPAY ==
[2024-02-09 15:34] LABS: Absolute Neutrophil Count 5.7 X10^3/uL (2.0-7.7); Eosinophil# 0.39 X10^3/uL; Hematocrit 51.2 % (40-54); Mean Corp Hgb Conc 33.2 g/dL (32-36); Mean Corpuscular Hgb 29.5 pg (27.0-32.0); Mean Corpuscular Volume 88.7 fL (80-94); Mean Platelet Vol. 11.2 fl (6.2-12.0); Monocyte# 0.48 X10^3/uL; NRBC Flagged by Analyzer 0 % (0-5); Neutrophil # 5.68 X10^3/uL (2.7-7.7); Neutrophil % 58.8 % (47-70); Platelet Count 234 K/mm3 (150-450); RBC Distribution Width CV 13.7 % (11.6-14.6); RBC Distribution Width SD 44.2 fl (35.1-43.9); Red Blood Count 5.77 M/mm3 (4.6-6.2); White Blood Count 9.7 K/mm3 (4.4-11.0)
[2024-02-09 16:54] LABS: AST(SGOT) 28 U/L (15-37); Alanine Aminotransfer ALT/SGPT 35 U/L (16-61); Albumin, Serum 3.6 g/dL (3.2-5.0); Alkaline Phosphatase 99 U/L (45-117); Anion Gap 6 (5-15); BUN 28 mg/dL (7-18); BUN/Creat Ratio 21.2 RATIO (10-20); Calcium,Total 9.4 mg/dL (8.5-10.1); Chloride 108 mmol/L (98-107); Cholesterol 221 mg/dL (200); Creatinine, Serum 1.32 mg/dL (0.70-1.30); EST Glomerular Filtration Rate 58 mL/min (>60); Est Glom Filt Rate - Afr Amer 70 mL/min (>60); Globulin 3.7 g/dL (2.2-4.2); Glucose 167 mg/dL (74-106); High Density Lipoprotein 51 mg/dL; Potassium 4.2 mmol/L (3.5-5.1); Protein, Total 7.3 g/dL (6.4-8.2); Sodium Level 142 mmol/L (136-145); Triglycerides 176 mg/dL; Very Low Density Lipoprotein 35 mg/dL (5-40)
== END | disposition home or self-care (01) ==
LOC: BIMLAB 14:31
PROVIDERS: PCP Internal Medicine; Visit Provider Internal Medicine
DX: E11.59 Type 2 diabetes mellitus with other circulatory complications (principal); Z79.4 Long term (current) use of insulin
CPT/HCPCS: 36415; 80053; 80061; 85025

== ENCOUNTER → 2024-04-28 | Outpatient (CLI) | payer MEDICAID, SELFPAY ==
[2024-04-28 13:46] LABS: ALB/GLOB Ratio 0.9 RATIO (0.9-2.4); AST(SGOT) 28 U/L (15-37); Alanine Aminotransfer ALT/SGPT 38 U/L (16-61); Albumin, Serum 3.7 g/dL (3.2-5.0); Alkaline Phosphatase 94 U/L (45-117); Anion Gap 11 (5-15); BUN 25 mg/dL (7-18); BUN/Creat Ratio 22.1 RATIO (10-20); Calcium,Total 9.6 mg/dL (8.5-10.1); Chloride 109 mmol/L (98-107); Creatinine, Serum 1.13 mg/dL (0.70-1.30); EST Glomerular Filtration Rate 70 mL/min (>60); Est Glom Filt Rate - Afr Amer 84 mL/min (>60); Globulin 3.9 g/dL (2.2-4.2); Glucose 133 mg/dL (74-106); Potassium 4.2 mmol/L (3.5-5.1); Protein, Total 7.6 g/dL (6.4-8.2); Sodium Level 142 mmol/L (136-145)
== END | disposition home or self-care (01) ==
LOC: BIMLAB 11:27
PROVIDERS: PCP Internal Medicine; Referring Provider Physician Assistant; Visit Provider Physician Assistant
DX: I10 Essential (primary) hypertension (principal)
CPT/HCPCS: 36415; 80053

== ENCOUNTER → 2024-10-28 | Outpatient (CLI) | payer MEDICAID, SELFPAY ==
--- NOTE | 2024-10-28 11:10 | RAD_ITS ---
EXAM: XR Right Hand Complete, 3 or More Views CLINICAL INDICATION: HAND PAIN, ARTHRITIS TECHNIQUE: Frontal, lateral and oblique views of the right hand. COMPARISON: No relevant prior studies available. FINDINGS: BONES/JOINTS: Unremarkable. No acute fracture. No dislocation. No significant degenerative changes. SOFT TISSUES: Unremarkable. No radiopaque foreign body. RAD/Hand Min 3 Views IMPRESSION: Unremarkable exam. Reading [facility]
== END | disposition home or self-care (01) ==
LOC: RAD 11:05
PROVIDERS: PCP Internal Medicine; Referring Provider Internal Medicine; Visit Provider Internal Medicine
DX: R29.898 Other symptoms and signs involving the musculoskeletal system (principal); M79.641 Pain in right hand
CPT/HCPCS: 73130

== ENCOUNTER → 2024-11-18 | Outpatient (CLI) | payer MEDICAID, SELFPAY | END | disposition home or self-care (01) | LOC: SL 10:33 | PROVIDERS: PCP Internal Medicine; Referring Provider Internal Medicine; Visit Provider Internal Medicine | DX: G47.10 Hypersomnia, unspecified (principal) | CPT/HCPCS: 95806 ==

== ENCOUNTER → 2024-11-24 | Outpatient (CLI) | payer MEDICAID, SELFPAY ==
--- NOTE | 2024-11-24 11:58 | NEURO ---
NCS and/or EMG Patient Report Ordering Doctor: Niurka Simons DATE OF SERVICE: 11/24/24 Devin presents with complaints of numbness and tingling and weakness in the right hand. He has a long history of diabetes. Electrodiagnostic findings: Right median motor response could not be obtained. Right ulnar motor nerve demonstrates prolonged latency with reduced amplitude and a 40% drop in conduction across the elbow. Sensory responses were not obtainable. Needle EMG testing was performed in the right upper limb. 1+ fibrillations noted in the first dorsal interosseous. Electrodiagnostic impression: This is an abnormal study of the right upper limb. 1. Electrodiagnostic findings are suggestive of right sided median neuropathy. As a response could not be obtained, it cannot be definitively stated that he has carpal tunnel syndrome. Would recommend correlation with two other limbs to better assess for peripheral polyneuropathy. 2. Electrodiagnostic evidence is noted for right ulnar neuropathy. There is evidence of axonal loss and there is evidence of conduction block across the elbow, consistent with a cubital tunnel syndrome. 3. There is no electrodiagnostic evidence for cervical radiculopathy or brachial plexopathy. Multi Select Codes Neurology Neurology Interp Codes: 25650-80 Musc test done w/n test comp (interp) and 82026-14 Nrv cndj test 7-8 studies (interp)
== END | disposition home or self-care (01) ==
LOC: PSN 09:35
PROVIDERS: PCP Internal Medicine; Referring Provider Internal Medicine; Visit Provider Internal Medicine
DX: R29.898 Other symptoms and signs involving the musculoskeletal system (principal)
CPT/HCPCS: 95886; 95910

== ENCOUNTER → 2025-03-16 | Outpatient (CLI) | payer MEDICAID, SELFPAY ==
[2025-03-16 16:08] LABS: Hematocrit 49.2 % (40-54); Hemoglobin 16.5 g/dL (13.0-16.5); Immature Granulocytes Count 0.060 X10^3/uL (0.0-0.0); Mean Corp Hgb Conc 33.5 g/dL (32-36); Mean Corpuscular Volume 89.0 fL (80-94); Mean Platelet Vol. 11.0 fl (6.2-12.0); NRBC Flagged by Analyzer 0 % (0-5); Platelet Count 242 K/mm3 (150-450); RBC Distribution Width CV 13.3 % (11.6-14.6); RBC Distribution Width SD 43.4 fl (35.1-43.9); Red Blood Count 5.53 M/mm3 (4.6-6.2); White Blood Count 9.6 K/mm3 (4.4-11.0)
[2025-03-16 16:24] LABS: Creatinine, Urine (random) 190.00 mg/dL (39.00-259.00); Microalbumin,Random Urine 62.6 mg/L (<20 mg/L)
[2025-03-16 16:26] LABS: AST(SGOT) 35 U/L (<=37); Alanine Aminotransfer ALT/SGPT 34 U/L (<=46); Albumin, Serum 4.0 g/dL (3.4-4.8); Alkaline Phosphatase 83 U/L (40-129); Anion Gap 13 (5-15); BUN 27 mg/dL (4-19); BUN/Creat Ratio 20.4 RATIO (10-20); Calcium,Total 9.5 mg/dL (7.6-11.0); Carbon Dioxide 21.9 mmol/L (21.0-32.0); Chloride 107 mmol/L (98-108); Cholesterol 234 mg/dL (<=200); Globulin 3.4 g/dL (2.2-4.2); Glucose 130 mg/dL (70-99); Low Density Lipoprotein Calc. 165 mg/dL; Potassium 4.4 mmol/L (3.3-5.1); Triglycerides 104 mg/dL; Very Low Density Lipoprotein 21 mg/dL (5-40); cholesterol:hdl ratio screen 4.85
[2025-03-16 16:30] LABS: CRP 4.18 mg/L (0.0-3.0)
[2025-03-18 12:08] LABS: ANTINUCLEAR ANTIBODIES DIRECT Negative (Negative)
[2025-03-19 11:08] LABS: Cytoplasmic Ab (C-ANCA) <1:20 titer (Neg:<1:20); Perinuclear Ab (P-ANCA) <1:20 titer (Neg:<1:20)
== END | disposition home or self-care (01) ==
LOC: BIMLAB 13:03
PROVIDERS: Physician Assistant; PCP Internal Medicine; Visit Provider Internal Medicine
DX: E11.59 Type 2 diabetes mellitus with other circulatory complications (principal); Z79.4 Long term (current) use of insulin; I10 Essential (primary) hypertension; I77.6 Arteritis, unspecified
CPT/HCPCS: 36415; 80053; 80061; 82043; 82570; 85025; 86037; 86038; 86140; 86225

== ENCOUNTER 2025-04-25 10:32 | Emergency (ER) | payer MEDICAID, SELFPAY ==
[2025-04-25 10:32] VITALS: BP 175/61; PULSE 47; RESP 16; TEMP 37.2; O2SAT 98; BMI 35.5
--- NOTE | 2025-04-25 11:18 | EKG12_ITS ---
Test Reason : Blood Pressure : */* mmHG Vent. Rate : 55 BPM Atrial Rate : 55 BPM P-R Int : * ms QRS Dur : 104 ms QT Int : 432 ms P-R-T Axes : 56 -50 112 degrees QTcB Int : 413 ms sinus abdi with PAC's Left axis deviation Left ventricular hypertrophy with repolarization abnormality ( R in aVL ) Possible Lateral infarct , age undetermined Inferior infarct , age undetermined Abnormal ECG Confirmed by Kurt Molina ([id number]), editor producer KYLER MICHAUD ([id number]) on 04/26/2025 10:19:46 AM Referred By: Confirmed By: Kurt Molina
[2025-04-25 11:24] VITALS: O2SAT 98
[2025-04-25 11:41] LABS: Hematocrit 49.6 % (40-54); Hemoglobin 17.0 g/dL (13.0-16.5); Immature Granulocytes Count 0.030 X10^3/uL (0.0-0.0); Mean Corp Hgb Conc 34.3 g/dL (32-36); Mean Corpuscular Volume 87.6 fL (80-94); Mean Platelet Vol. 10.2 fl (6.2-12.0); NRBC Flagged by Analyzer 0 % (0-5); Platelet Count 262 K/mm3 (150-450); RBC Distribution Width CV 13.6 % (11.6-14.6); RBC Distribution Width SD 43.6 fl (35.1-43.9); Red Blood Count 5.66 M/mm3 (4.6-6.2); White Blood Count 9.5 K/mm3 (4.4-11.0)
[2025-04-25 11:42] VITALS: PULSE 60; RESP 16
--- NOTE | 2025-04-25 11:47 | ED.VIS.DYS ---
HPI History of Present Illness Chief Complaint: Cough Narrative Narrative: 64-year-old male who denies significant past medical history presents with shortness of breath and orthopnea that has had over the last few days. He denies any fevers or chills but has had an occasional cough. He likens this feeling similar to when he had COVID 4 to 5 years ago. It feels like the tail end of it. He denies any fevers or chills, no nausea or vomiting, no other symptoms. No leg swelling. 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 He states that even last evening he found it difficult to sleep because he could not lay flat. Denies history of congestive heart failure or COPD. Additionally, he states he always has history of low heart rate, that he has been to the superannuation funds manager in the past, and they have been seeing 2 different superannuation funds manager and he is naturally bradycardic and 40s. 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 #1 ea 09/23/23 Unknown Rx (Dexcom G7 Hairspring Cutter) arm brace #1 ea 08/13/24 Unknown Rx blood-glucose sensor (Dexcom G7 #3 ea 08/23/24 Unknown Rx Sensor device) arm brace #1 ea 10/28/24 Unknown Rx insulin degludec 100 unit/mL (3 50 unit (0.5 mL) subcut DAILY #45 10/28/24 Unknown Rx mL) subcutaneous pen (Tresiba mL FlexTouch U-100 insulin) fexofenadine 180 mg tablet 180 mg PO QDAY #10 tabs 01/27/25 Unknown Rx (Kary Hives) ketoconazole 2 % shampoo 1 applic topical 3XW #120 mL 02/15/25 Unknown Rx insulin aspart U-100 100 unit/mL 12 - 20 unit (0.12 - 0.2 mL) 04/05/25 Unknown Rx (3 mL) subcutaneous pen (Novolog subcut TID #45 mL FlexPen U-100 Insulin aspart) albuterol sulfate 90 mcg/actuation 1 - 2 puff inhalation Q4H PRN PRN 04/25/25 Unknown Rx aerosol inhaler (Ventolin HFA) Wheezing #1 ea levofloxacin 750 mg tablet 750 mg PO DAILY 7 days #7 tabs 04/25/25 Unknown Rx Allergy/AdvReac Type Severity Reaction Status Date / Time semaglutide (From Ozempic) Allergy Intermediate Vomiting Verified 04/25/25 10:36 Sulfa (Sulfonamide Allergy Unknown Verified 04/25/25 10:36 Antibiotics) amlodipine AdvReac Mild dizzy Verified 04/25/25 10:36 liraglutide (From Victoza) AdvReac Vomiting Verified 04/25/25 10:36 Seasonal Allergies: Uncoded AdvReac Other Verified 04/25/25 10:36 (environmental) Family History Grandmother Diabetes Surgical History Cataract extraction status H/O vasectomy Amputation toe Amputation of left lower extremity below knee Social History household members: none housing: house current occupational status: employed and 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 Positive orthopnea and dyspnea on exertion as well. No noted leg swelling. EXAM Physical Exam Narrative Exam Narrative: Afebrile. Vital signs noted. Nontoxic-appearing. Cardiovascular examination reveals bradycardia. Lungs are clear to auscultation bilaterally with slightly prolonged expiratory phase but no stridor or wheezing. Abdomen is soft and nontender without guarding or rebound. Neurological examination nonfocal, nonlateralizing. Left lower extremity does show prosthetic in place. Const Vital Signs: 04/25/25 10:32 04/25/25 10:32 04/25/25 11:24 Temperature 98.9 F Temperature Source Temporal Pulse Rate 47 L Respiratory Rate 16 Respiratory Effort Short of Breath Respiratory Depth Normal Respiratory Pattern Blood Pressure 175/61 H Blood Pressure Mean 99 Pulse Ox 98 98 Oxygen Delivery Method Room Air Room Air Room Air 04/25/25 11:42 04/25/25 12:32 Temperature Temperature Source Pulse Rate 60 58 L Respiratory Rate 16 18 Respiratory Effort Respiratory Depth Respiratory Pattern Normal Blood Pressure 135/61 H Blood Pressure Mean 85 Pulse Ox 95 Oxygen Delivery Method Room Air MDM MDM MDM Narrative Medical decision making narrative: The differential diagnosis includes but not limited to bronchitis versus pneumonia versus pneumothorax versus new onset CHF. Patient is not having chest pain so I do not feel that a troponin is indicated. EKG was obtained and interpreted by myself independently as more of a bradycardia that appears sinus at [address] changes. No STEMI. He was given a DuoNeb aerosolized treatment. Pulse ox is 98% on room air without evidence of hypoxia. I reviewed his laboratory work and he has a normal white count at 9.5 with hemoglobin slightly hemoconcentrated at 17.0 but hematocrit 49.6, platelet count normal at 262. Electrolyte panel shows chloride of 110 with sodium of 141 and potassium normal at 3.9. Glucose 88. BNP is slightly elevated at 1201 which is slightly above normal for his age. Chest x-ray interpreted by myself independently does show right upper lobe patchy infiltrate. I doubt CHF because it is unilateral. I reviewed the radiology report which confirms my independent interpretation. Upon repeat examination after DuoNeb aerosolized treatment he feels improved. I will start him on Levaquin for his right upper lobe pneumonia. He was warned of the risk of tendon rupture as well with this. Regarding his elevated BNP, I discussed this with Dr. Molina with cardiology. He should have an outpatient echocardiogram through his primary care provider and can follow-up with his previous superannuation funds manager or [facility]. This was relayed to the patient. Additionally, he has an appointment scheduled with his primary care provider for 2 days from now. He was advised to keep this appointment and return instructions were reviewed. I feel he can be discharged and that he does not require observation or admission at this time. Disposition is discharged home in stable condition. History & Record Review Discussion w/independent historian: Patient Lab Data Attestation: I reviewed the patient's lab results. Labs: Laboratory Results - last 24 hr 04/25/25 11:33 WBC 9.5 RBC 5.66 Hgb 17.0 H Hct 49.6 MCV 87.6 MCH 30.0 MCHC 34.3 RDW Std Deviation 43.6 RDW Coeff of Benita 13.6 Plt Count 262 MPV 10.2 Immature Gran % (Auto) 0.300 Neut % (Auto) 60.7 Lymph % (Auto) 27.4 [place] % (Auto) 6.7 Eos % (Auto) 4.2 Baso % (Auto) 0.7 Absolute Neuts (auto) 5.8 Absolute Lymphs (auto) 2.60 Nucleated RBC % 0 Sodium 141 Potassium 3.9 Chloride 110 H Carbon Dioxide 21.1 Anion Gap 11 BUN 25 H Creatinine 1.08 Estim Creat Clear Calc 91.95 Est GFR (MDRD) Non-Af 77 BUN/Creatinine Ratio 22.7 H Glucose 88 Calcium 8.9 NT pro BNP II 1201 H Radiography Chest X-Ray - ED: Read by ED Physician and Read by Radiologist Diagnostic Testing: Clinical Impression(s) from Imaging Studies Chest X-Ray 04/25/25 12:18 IMPRESSION: Patchy nodular opacity in the right upper lobe. Findings could reflect pneumonia in the correct clinical setting. Follow-up to document complete resolution is recommended. Reading Location: [facility] [place] Management Discussion w/another healthcare provider: P D Driver (Dr. Molina, cardiology) Discharge Plan Triage Chief Complaint: Cough ED Provider: Joel Richardson Dx/Rx/DC Orders Clinical Impression: Pneumonia, Orthopnea, Elevated brain natriuretic peptide (BNP) level Instructions: ED Dyspnea, ED Pneumonia (Adult) Prescriptions: New albuterol sulfate [Ventolin HFA] 90 mcg/actuation HFA aerosol inhaler 1 - 2 puff inhalation Q4H PRN PRN (Reason: Wheezing) Qty: 1 0RF levofloxacin 750 mg tablet 750 mg PO DAILY 7 Days Qty: 7 0RF No Action aspirin 81 mg tablet,delayed release (DR/EC) 81 mg PO DAILY insulin degludec [Tresiba FlexTouch U-100] 100 unit/mL (3 mL) insulin pen 50 unit subcut DAILY Qty: 45 1RF Rx Instructions: 50 units 1 times daily (DME) arm brace Misc See Rx Instructions .Route Qty: 1 0RF Rx Instructions: As directed fexofenadine [Kary Hives] 180 mg tablet 180 mg PO QDAY Qty: 10 0RF ketoconazole 2 % shampoo 1 applic topical 3XW Qty: 120 0RF (DME) Dexcom G7 Hairspring Cutter Misc See Rx Instructions .Route Qty: 1 0RF Rx Instructions: As directed (DME) arm brace Misc See Rx Instructions .Route Qty: 1 0RF Rx Instructions: As directed (DME) Dexcom G7 Sensor Device See Rx Instructions .Route Qty: 3 12RF Rx Instructions: As directed insulin aspart U-100 [Novolog FlexPen U-100 Insulin] 100 unit/mL (3 mL) insulin pen 12 - 20 unit subcut TID Qty: 45 0RF Primary Care Provider: Niurka Simons Referrals: Niurka Simons MD [Primary Care Provider] - Keep Dm appointment Activity Restrictions/Additional Instructions: Your chest x-ray showed you had a right upper lobe pneumonia. Antibiotics as directed. Be wary of tendon rupture with the use of Levaquin. Use albuterol inhaler as directed. You had an elevated BNP today. Cardiology suggests getting an outpatient echocardiogram of your heart through your primary care provider. You can follow-up with [facility] or your previous superannuation funds manager. Return with increased difficulty breathing, new or worsening symptoms. Print Language: Bulgarian Disposition Disposition: Home, Self Care
[2025-04-25 12:17] LABS: Anion Gap 11 (5-15); BUN 25 mg/dL (4-19); BUN/Creat Ratio 22.7 RATIO (10-20); Calcium,Total 8.9 mg/dL (7.6-11.0); Carbon Dioxide 21.1 mmol/L (21.0-32.0); Chloride 110 mmol/L (98-108); Estimated Creatinine Clearance 91.95 ml/min (50-250); Glucose 88 mg/dL (70-99); Potassium 3.9 mmol/L (3.3-5.1); Pro- Brain NATRIURETIC PEPTIDE 1201 pg/mL (<=900)
--- NOTE | 2025-04-25 12:18 | RAD_ITS ---
PROCEDURE: CHEST PA AND LATERAL 04/25/2025 REASON FOR EXAM: SHORTNESS OF BREATH TECHNIQUE: Procedure Code: RADCXR Modality: DX Procedure: CHEST PA AND LATERAL COMPARISON: None FINDINGS: There is patchy airspace disease in the right upper lobe. Remainder of the lung remains clear. The heart and mediastinum is normal. Hilar structures are intact. There is no pleural effusion or pneumothorax. Osseous structures are within normal limits with multilevel disc disease present through the spine. RAD/Chest PA and Lateral IMPRESSION: Patchy nodular opacity in the right upper lobe. Findings could reflect pneumon ia in the correct clinical setting. Follow-up to document complete resolution is recommended. Reading Location: [id number]
[2025-04-25 12:24] VITALS: O2SAT 95
[2025-04-25 12:32] VITALS: BP 135/61; PULSE 58; RESP 18; O2SAT 95
[2025-04-25 13:41] VITALS: BP 128/89; PULSE 62; RESP 18; TEMP 36.8; O2SAT 98
--- OUTSIDE RECORDS SUMMARY | 2025-04-25 20:34 | XMS RPT_ITS | CCD ---
Author Organization [facility] Care Team Providers Care Wood Crafter Name Role Phone Care Physician, No Primary Primary Care Provider Unavailable Care Physician, No Primary Referring Provider Un available ARGENIS Avitia Attending Provider [phone] ARGENIS Avitia Other Provider Dr. Niurka Simons Attending Provider [phone] [place], Dr. Bah Primary Care Provider [phone] [place], Dr. Bah Attending Provider [place], Dr. Bah Referring Provider [place], Dr. Bah Other Provider [phone] [place], Dr. Donahue Attending Provider [phone] Porter Olea Attending Provider Atif Salazar Attending Provider Dr. Niurka Simons MD Primary Care Provider [phone] [place], Dr. Bah Attending Provider Dr. Niurka Simons MD Referring Provider Atif Salazar Attending Unavailable Atif Salazar Referring Unavailable Kristyn, Niurka Primary Care Unavailable Greene, Niurka Attending Unavailable Kristyn, Niurka Referring Unavailable Kristyn, Niurka Primary Care Unavailable Greene, Niurka Attending Unavailable Greene, Niurka Referring Unavailable Greene, Niurka Primary Care Unavailable Greene, Niurka Attending Unavailable Kristyn, Niurka Referring Unavailable Greene, Niurka Primary Care Unavailable Greene, Niurka Referring Unavailable Kristyn, Niurka Primary Care Unavailable Greene, Niurka Attending Unavailable Kitty MORE, Atif Attending Unavailable Greene, Niurka Referring Unavailable Greene, Niurka Primary Care Unavailable Kristyn, Niurka Attending Unavailable Greene, Niurka Referring Unavailable Greene, Niurka Primary Care Unavailable Greene, Niurka Primary Care Unavailable Porter Olea Attending Unavailable Kristyn, Niurka Referring Unavailable Kristyn, Niurka Primary Care Unavailable Rowan Mulligan Attending Unavailable Kristyn, Niurka Referring Unavailable Kristyn, Niurka Consulting Unavailable Kristyn, Niurka Referring Unavailable Kristyn, Niurka Primary Care Unavailable Kristyn, Niurka Attending Unavailable Kitty MORE, Atif Attending Unavailable Greene, Niurka Referring Unavailable Greene, Niurka Primary Care Unavailable Kitty MORE, Atif Attending Unavailable Greene, Niurka Referring Unavailable Kristyn, Niurka Primary Care Unavailable Kristyn, Niurka Primary Care Unavailable Kristyn, Niurka Attending Unavailable [place], Dr. Bah Primary Care Provider [place], Dr. Bah Attending Provider [place], Dr. Bah Referring Provider [place], Joel Emergency Provider Allergies Allergy Classification Reported Allergen(s) Allergy Type Date of Onset Reaction(s) Facility (10 sources) liraglutide Drug Allergy 4 [facility] (10 sources) Sulfonamides (Antibiotic) Allergy to substance 4 Unknown [facility] (9 sources) amLODIPine Drug Allergy 4 dizzy [facility] (8 sources) semaglutide Drug Allergy 5 [facility] Comment on above: All glp-1's (9 sources) Seasonal Allergies: Uncoded; Translations: [Seasonal Allergies: Uncoded] Propensity to adverse reactions 5 Other [facility] (1 source) amLODIPine Drug Allergy 5 [facility] (1 source) liraglutide Drug Allergy 5 [facility] (1 source) Sulfonamides (Antibiotic) Drug allergy (disorder) 5 [facility] (1 source) semaglutide Drug allergy (disorder) 5 [facility] Medications Current Medications Medication Drug Class(es) Dates Sig (Normalized) Sig (Original) [id number] actuat albuterol 0.09 mg/actuat metered dose inhaler (1 source) beta2-Adrenergic Agonist Start: 04-25-2025 Albuterol Sulfate (Ventolin Hfa) 90 mcg/actuation HFA aerosol inhaler Active 1 - 2 NMA INHALATION EVERY 4 HOURS NEEDED as needed for Wheezing 1 0 April 25, 2025 12:00am Arm Brace (1 source) Start: 09-22-2023 Arm Brace Active 0 .Route 1 September 22, 2023 12:00am As directed Arm Brace misc (20 sources) Start: 10-28-2024 Arm Brace misc Active 0 .Route 1 0 October 28, 2024 1:02pm Weakness of right hand Other symptoms and signs involving the musculoskeletal system As directed Start: 10-28-2024 Arm Brace misc Active 0 .Route 1 October 28, 2024 1:02pm As directed Start: 08-13-2024 Arm Brace misc Active 0 .Route 1 0 August 13, 2024 1:10pm Weakness of right hand Other symptoms and signs involving the musculoskeletal system As directed Start: 08-13-2024 Arm Brace misc Active 0 .Route 1 August 13, 2024 1:10pm As directed Start: 09-22-2023 End: 08-13-2024 Arm Brace misc Discontinued 0 .Route 1 0 September 22, 2023 1:00am August 13, 2024 1:10pm Weakness of right hand Other symptoms and signs involving the musculoskeletal system As directed Start: 09-22-2023 End: 08-13-2024 Arm Brace misc Discontinued 0 .Route 1 September 22, 2023 1:00am August 13, 2024 1:10pm As directed aspirin 81 mg delayed release oral tablet (19 sources) Platelet Aggregation Inhibitor, Nonsteroidal Anti-inflammatory Drug Start: 09-22-2023 take 1 tablet by mouth once daily Aspirin 81 mg tablet,delayed release (DR/EC) Active 81 mg PO DAILY September 22, 2023 1:00am Start: 02-23-2016 End: 09-22-2023 take 1 tablet by mouth once daily Aspirin 81 MG tablet,chewable Discontinued 81 mg PO DAILY@0800 February 23, 2016 12:00am September 22, 2023 10:03am Blood-Glucose Meter,Continuo us (Dexcom G7 Impregnator And Drier) misc (4 sources) Start: 09-23-2023 Blood-Glucose Meter,Continuous (Dexcom G7 Impregnator And Drier) misc Active 0 .Route 1 September 23, 2023 1:00am As directed Start: 09-23-2023 Blood-Glucose Meter,Continuous (Dexcom G7 Impregnator And Drier) misc Active 0 .Route 1 September 23, 2023 12:00am As directed Blood-Glucose Sensor (Dexcom G7 Sensor) device (20 sources) Start: 08-23-2024 Blood-Glucose Sensor (Dexcom G7 Sensor) device Active 0 .Route 3 August 23, 2024 12:15pm 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 superintendent terminal (current) use of insulin As directed Start: 08-23-2024 Blood-Glucose Sensor (Dexcom G7 Sensor) device Active 0 .Route 3 August 23, 2024 12:15pm As directed Start: 10-30-2023 End: 08-23-2024 Blood-Glucose Sensor (Dexcom G7 Sensor) device Discontinued 0 .Route 3 October 30, 2023 9:38am August 23, 2024 12:15pm 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 longterm (current) use of insulin As directed Start: 10-30-2023 End: 08-23-2024 Blood-Glucose Sensor (Dexcom G7 Sensor) device Discontinued 0 .Route 3 October 30, 2023 9:38am August 23, 2024 12:15pm As directed Start: 10-30-2023 End: 10-30-2023 Blood-Glucose Sensor (Dexcom G7 Sensor) device Discontinued 0 .Route 1 October 30, 2023 9:21am October 30, 2023 9:39am 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 longterm (current) use of insulin As directed Start: 10-30-2023 End: 10-30-2023 Blood-Glucose Sensor (Dexcom G7 Sensor) device Discontinued 0 .Route 1 October 30, 2023 9:21am October 30, 2023 9:39am As directed Start: 09-23-2023 End: 10-30-2023 Blood-Glucose Sensor (Dexcom G7 Sensor) device Discontinued 0 .Route 1 0 September 23, 2023 1:00am October 30, 2023 9:22am 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 longterm (current) use of insulin As directed Start: 09-23-2023 End: 10-30-2023 Blood-Glucose Sensor (Dexcom G7 Sensor) device Discontinued 0 .Route 1 September 23, 2023 1:00am October 30, 2023 9:22am As directed Start: 09-23-2023 Blood-Glucose Sensor (Dexcom G7 Sensor) device Active 0 .Route 1 September 23, 2023 12:00am As directed Blood-Glucose,Impregnator And Drier,Cont (Dexcom G7 Impregnator And Drier) misc (5 sources) Start: 09-23-2023 Blood-Glucose,Impregnator And Drier,Cont (Dexcom G7 Impregnator And Drier) misc Active 0 .Route 1 0 September 23, 2023 1:00am 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 superintendent terminal (current) use of insulin As directed Start: 09-23-2023 Blood-Glucose, Impregnator And Drier,Cont (Dexcom G7 Impregnator And Drier) misc Active 0 .Route 1 September 23, 2023 1:00am As directed fexofenadine hydrochloride 180 mg oral tablet (5 sources) Histamine-1 Receptor Antagonist Start: 01-27-2025 take 1 tablet by mouth once daily Fexofenadine (Kary Hives) 180 mg tablet Active 180 mg PO daily 10 January 27, 2025 12:00am Insulin Aspart U-100 (Novolog Flexpen U-100 Insulin) 100 unit/mL (3 mL) insulin pen (1 source) Start: 04-05-2025 Insulin Aspart U-100 (Novolog Flexpen U-100 Insulin) 100 unit/mL (3 mL) insulin pen Active 12 - 20 U SC THREE TIMES A DAY 45 0 April 05, 2025 8:29am Insulin Degludec (Tresiba Flextouch U-100) 100 unit/mL (3 mL) insulin pen (20 sources) Start: 10-28-2024 Insulin Deglud ec (Tresiba Flextouch U-100) 100 unit/mL (3 mL) insulin pen Active 50 U SC DAILY 45 October 28, 2024 10:19am 50 units 1 times daily Start: 10-28-2024 Insulin Deglud ec (Tresiba Flextouch U-100) 100 unit/mL (3 mL) insulin pen Active 50 U SC DAILY 45 October 28, 2024 10:19am 50 units 1 times daily Start: 10-20-2024 End: 10-28-2024 Insulin Degludec (Tresiba Fl extouch U-100) 100 unit/mL (3 mL) insulin pen Discontinued 50 U SC DAILY 15 October 20, 2024 11:43am October 28, 2024 10:45am 50 units 1 times daily Start: 10-20-2024 End: 10-28-2024 Insulin Degludec (Tresiba Fl extouch U-100) 100 unit/mL (3 mL) insulin pen Discontinued 50 U SC DAILY October 20, 2024 11:43am October 28, 2024 10:45am 50 units 1 times daily Start: 09-20-2024 End: 10-20-2024 Insulin Degludec (Tresiba Fl extouch U-100) 100 unit/mL (3 mL) insulin pen Discontinued 50 U SC DAILY 15 September 20, 2024 1:15pm October 20, 2024 11:43am 50 units 1 times daily Start: 09-20-2024 End: 10-20-2024 Insulin Degludec (Tresiba Fl extouch U-100) 100 unit/mL (3 mL) insulin pen Discontinued 50 U SC DAILY September 20, 2024 1:15pm October 20, 2024 11:43am 50 units 1 times daily Start: 08-13-2024 End: 09-20-2024 Insulin Degludec (Tresiba Fl extouch U-100) 100 unit/mL (3 mL) insulin pen Discontinued 50 U SC DAILY August 13, 2024 1:09pm September 20, 2024 1:15pm 50 units 1 times daily Start: 08-13-2024 End: 09-20-2024 Insulin Degludec (Tresiba Fl extouch U-100) 100 unit/mL (3 mL) insulin pen Discontinued 50 U SC DAILY August 13, 2024 1:09pm September 20, 2024 1:15pm 50 units 1 times daily Start: 06-28-2024 End: 08-13-2024 Insulin Degludec (Tresiba Fl extouch U-100) 100 unit/mL (3 mL) insulin pen Discontinued 50 U SC DAILY June 28, 2024 10:33am August 13, 2024 1:09pm 50 units 1 times daily Start: 06-28-2024 End: 08-13-2024 Insulin Degludec (Tresiba Fl extouch U-100) 100 unit/mL (3 mL) insulin pen Discontinued 50 U SC DAILY June 28, 2024 10:33am August 13, 2024 1:09pm 50 units 1 times daily Start: 09-22-2023 End: 06-28-2024 Insulin Degludec (Tresiba Fl extouch U-100) 100 unit/mL (3 mL) insulin pen Discontinued 50 U SC DAILY 15 September 22, 2023 10:56am June 28, 2024 10:34am 50 units 1 times daily Start: 09-22-2023 End: 06-28-2024 Insulin Degludec (Tresiba Fl extouch U-100) 100 unit/mL (3 mL) insulin pen Discontinued 50 U SC DAILY September 22, 2023 10:56am June 28, 2024 10:34am 50 units 1 times daily Start: 09-22-2023 Insulin Deglud ec (Tresiba Flextouch U-100) 100 unit/mL (3 mL) insulin pen Active 50 UNIT SC DAILY September 22, 2023 9:56am 50 units 1 times daily Start: 09-22-2023 End: 09-22-2023 Insulin Degludec (Tresiba Fl extouch U-100) 100 unit/mL (3 mL) insulin pen Discontinued 100 U SC DAILY September 22, 2023 1:00am September 22, 2023 10:57am 50 units 1 times daily Start: 09-22-2023 End: 09-22-2023 Insulin Degludec (Tresiba Fl extouch U-100) 100 unit/mL (3 mL) insulin pen Discontinued 100 UNIT SC DAILY September 22, 2023 12:00am September 22, 2023 9:57am 50 units 1 times daily ketoconazole 20 mg/ml medicated shampoo (3 sources) Azole Antifungal Start: 02-15-2025 Ketoconazole 2 % shampoo Active 1 NMA TOPICAL 3 TIMES A WEEK 120 0 February 15, 2025 12:00am levoFLOXacin 750 mg oral tablet (1 source) Quinolone Antimicrobial Start: 04-25-2025 take 1 tablet by mouth once daily Levofloxacin 750 mg tablet Active 750 mg PO DAILY 7 7 0 April 25, 2025 12:00am Completed/Discontinued Medications Medication Drug Class(es) Dates Sig (Normalized) Sig (Original) atorvastatin 10 mg oral tablet (10 sources) HMG-CoA Reductase Inhibitor Start: 04-18-2016 End: 08-21-2023 take 2 tablets by mouth once daily Atorvastatin 10 MG tablet Discontinued 20 mg PO DAILY April 18, 2016 12:00am August 21, 2023 2:34pm Start: 04-18-2016 End: 08-21-2023 take 20 mg by mouth once daily Atorvastatin Discontinu ed 20 MG PO DAILY April 17, 2016 11:00pm August 21, 2023 1:34pm azelastine hydrochloride 0.5 mg/ml ophthalmic solution (8 sources) Histamine-1 Receptor Antagonist Start: 01-26-2024 End: 01-27-2025 Azelastine 0.05 % drops Discontinued 1 NMA OPHTHALMIC TWICE A DAY 6 0 January 26, 2024 12:00am January 27, 2025 10:40am buPROPion hydrochloride 100 mg oral tablet (10 sources) Aminoketone Start: 02-23-2016 End: 08-21-2023 take 1 tablet by mouth three times daily Bupropion Hcl 100 MG tablet Discontinued 100 mg PO THREE TIMES A DAY February 23, 2016 12:00am August 21, 2023 2:34pm cephalexin 500 mg oral capsule (9 sources) Cephalosporin Antibacterial Start: 02-15-2025 End: 02-24-2025 take 1 capsule by mouth three times daily Cephalexin 500 mg capsule Discontinued 500 mg PO THREE TIMES A DAY 21 0 February 15, 2025 12:00am February 24, 2025 12:30pm Start: 11-25-2024 End: 12-05-2024 take 1 capsule by mouth every twelve hours Cephalexin 500 mg capsule Discontinued 500 mg PO Q12H 20 10 0 November 25, 2024 12:00am December 04, 2024 12:00am December 05, 2024 12:06am clindamycin 300 mg oral capsule (10 sources) Lincosamide Antibacterial Start: 08-19-2015 End: 02-23-2016 take 1 capsule by mouth every six hours Clindamycin Hcl (Cleocin Hcl) 300 MG capsule Discontinued 300 mg PO EVERY 6 HOURS 40 0 August 19, 2015 1:00am February 23, 2016 10:42am clopidogrel 75 mg oral tablet (10 sources) [id number] Platelet Inhibitor Start: 08-21-2023 End: 09-22-2023 take 1 tablet by mouth once daily Clopidogrel (Plavix) 75 mg tablet Discontinued 75 mg PO DAILY August 21, 2023 1:00am September 22, 2023 10:06am doxycycline monohydrate 100 mg oral capsule (10 sources) Tetracycline-class Drug Start: 01-27-2015 End: 02-09-2015 take 1 capsule by mouth twice daily Doxycycline Hyclate 100 MG capsule Discontinued 100 mg PO TWICE A DAY 20 0 January 27, 2015 12:00am February 09, 2015 9:13am fluticasone propionate 0.05 mg/actuat metered dose nasal spray (8 sources) Corticosteroid Start: 10-28-2024 End: 01-27-2025 take 50 ug nasal route once daily Fluticasone Propionate (Flonase Allergy Relief) 50 mcg/actuation spray,suspension Discontinued 1 NMA INTRANASAL daily 16 0 October 28, 2024 12:00am January 27, 2025 10:40am administer into each nostril 3 ml insulin aspart, human 100 unt/ml pen injector (20 sources) Insulin Analog Start: 07-20-2024 End: 04-05-2025 Insulin Aspart U-100 (Novolog Flexpen U-100 Insulin) 100 unit/mL (3 mL) insulin pen Discontinued 12 - 20 U SC THREE TIMES A DAY 15 February 25, 2025 1:11pm April 05, 2025 8:29am per sliding scale instructions, max of 60 units daily Start: 09-22-2023 End: 07-20-2024 Insulin Aspart U-100 (Novolo g Flexpen U-100 Insulin) 100 unit/mL (3 mL) insulin pen Discontinued 12 - 20 U SC THREE TIMES A DAY 15 0 July 20, 2024 1:34pm July 20, 2024 2:55pm per sliding scale instructions Start: 09-22-2023 Insulin Aspart U-100 (Novolog Flexpen U-100 Insulin) 100 unit/mL (3 mL) insulin pen Active 12 - 20 UNIT SC THREE TIMES A DAY 15 September 22, 2023 12:00am per sliding scale instructions Start: 08-21-2023 End: 09-22-2023 insulin aspart U-100 (Novolo g FlexPen U-100 Insulin) Discontinued 0 .ROUTE .COMPLEX August 21, 2023 1:00am September 22, 2023 10:57am 12-20 UNITS / SLIDING SCALE; Start: 08-21-2023 End: 09-22-2023 insulin aspart U-100 (Novolo g FlexPen U-100 Insulin) Discontinued 0 .ROUTE .COMPLEX August 21, 2023 12:00am September 22, 2023 9:57am 12-20 UNITS / SLIDING SCALE; Start: 08-21-2023 insulin aspart U-100 Active 0 .ROUTE .COMPLEX August 21, 2023 12:00am 12-20 UNITS / SLIDING SCALE; insulin glargine 100 unt/ml injectable solution (10 sources) Insulin Analog Start: 02-23-2016 End: 08-21-2023 Insulin Glargine (Lantus) 100 UNIT/ML solution Discontinued 20 U DAILY February 23, 2016 12:00am August 21, 2023 2:36pm insulin lispro 100 unt/ml injectable solution (10 sources) Insulin Analog Start: 02-23-2016 End: 08-21-2023 Insulin Lispro (Humalog) 100 UNIT/ML solution Discontinued U SQ THREE TIMES A DAY February 23, 2016 12:00am August 21, 2023 2:36pm lisinopril 10 mg oral tablet (20 sources) Angiotensin Converting Enzyme Inhibitor Start: 02-23-2016 End: 08-21-2023 take 1 tablet by mouth once daily Lisinopril 10 MG tablet Discontinued 10 mg PO DAILY February 23, 2016 12:00am August 21, 2023 2:36pm Start: 04-02-2015 End: 02-23-2016 Lisinopril Discontinued Augu 2014 12:00am February 23, 2016 10:42am Start: 04-02-2015 End: 02-23-2016 Lisinopril Discontinued 2014 11:00pm February 23, 2016 9:42am metFORMIN hydrochloride 500 mg oral tablet (20 sources) Biguanide Start: 02-23-2016 End: 08-21-2023 take 1 tablet by mouth twice daily at mealtime Metformin 500 MG tablet Discontinued 500 mg PO TWICE DAILY WITH MEALS February 23, 2016 12:00am August 21, 2023 2:37pm Start: 04-02-2015 End: 02-23-2016 Glucophage Discontinued [facility]2014 12:00am February 23, 2016 10:42am Start: 04-02-2015 End: 02-23-2016 Glucophage Discontinued [facility] 2014 11:00pm February 23, 2016 9:42am predniSONE 10 mg oral tablet (3 sources) Start: 02-15-2025 End: 02-24-2025 take 1 tablet by mouth three times daily Prednisone 10 mg tablet Discontinued 10 mg PO THREE TIMES A DAY 15 February 15, 2025 12:00am February 24, 2025 12:30pm rivaroxaban 10 mg oral tablet (10 sources) Factor Xa Inhibitor Start: 04-18-2016 End: 08-21-2023 take 2 tablets by mouth once daily Rivaroxaban (Xarelto) 10 MG tablet Discontinued 20 mg PO DAILY April 18, 2016 12:00am August 21, 2023 2:37pm Semaglutide (8 sources) Start: 01-26-2024 End: 03-17-2024 Semaglutide (Ozempic) 0.25 mg or 0.5 mg (2 mg/3 mL) pen injector Discontinued 0.25 mg SC EVERY WEEK 3 January 26, 2024 12:00am March 17, 2024 4:18pm for 4 weeks Start: 01-26-2024 End: 03-17-2024 Semaglutide (Ozempic) 0.25 m g or 0.5 mg (2 mg/3 mL) pen injector Discontinued 0.25 mg SC EVERY WEEK January 26, 2024 12:00am March 17, 2024 4:18pm for 4 weeks Semaglutide (Rybelsus) 3 mg tablet (20 sources) Start: 06-07-2024 End: 10-28-2024 take 1 tablet by mouth once daily Semaglutide (Rybelsus) 3 mg tablet Discontinued 3 mg PO DAILY 30 30 2 June 07, 2024 1:00pm October 28, 2024 10:08am Start: 06-07-2024 End: 10-28-2024 take 1 tablet by mouth once daily Semaglutide (Rybelsus) 3 mg tablet Discontinued 3 mg PO DAILY 30 30 June 07, 2024 1:00pm October 28, 2024 10:08am Start: 05-04-2024 End: 06-03-2024 take 1 tablet by mouth once daily Semaglutide (Rybelsus) 3 mg tablet Discontinued 3 mg PO DAILY 30 30 0 May 04, 2024 12:33pm June 02, 2024 12:00am June 03, 2024 12:09am Start: 05-04-2024 End: 06-03-2024 take 1 tablet by mouth once daily Semaglutide (Rybelsus) 3 mg tablet Discontinued 3 mg PO DAILY 30 30 May 04, 2024 12:33pm June 02, 2024 12:00am June 03, 2024 12:09am Start: 04-06-2024 End: 05-04-2024 take 1 tablet by mouth once daily Semaglutide (Rybelsus) 3 mg tablet Discontinued 3 mg PO DAILY 30 30 0 April 06, 2024 12:00am May 05, 2024 12:00am May 04, 2024 12:34pm Start: 04-06-2024 End: 05-04-2024 take 1 tablet by mouth once daily Semaglutide (Rybelsus) 3 mg tablet Discontinued 3 mg PO DAILY 30 April 06, 2024 12:00am May 05, 2024 12:00am May 04, 2024 12:34pm Tirzepatide (Mounjaro) 2.5 mg/0.5 mL pen injector (8 sources) Start: 03-17-2024 End: 04-06-2024 Tirzepatide (Mounjaro) 2.5 mg/0.5 mL pen injector Discontinued 2.5 mg SC EVERY WEEK 2 0 March 17, 2024 12:00am April 06, 2024 3:08pm for 4 weeks Start: 03-17-2024 End: 04-06-2024 Tirzepatide (Mounjaro) 2.5 m g/0.5 mL pen injector Discontinued 2.5 mg SC EVERY WEEK 2 March 17, 2024 12:00am April 06, 2024 3:08pm for 4 weeks Problems Active Problems Problem Classification Problem Date Documented Date Episodic/Chronic Administrative/social admission (1 source) Persons encountering health services in other specified circumstances; Translations: [Other reasons for seeking consultation] 09-22-2023 Episodic Cardiac dysrhythmias (19 sources) Bradycardia; Translations: [Bradycardia, unspecified] 04-28-2024 Episodic Chronic ulcer of skin (10 sources) Infection of skin; Translations: [Pressure ulcer of unspecified site, unspecified stage] 08-15-2016 Chronic Diabetes mellitus with complications (20 sources) Type 2 diabetes mellitus; Translations: [Uncontrolled type 2 diabetes mellitus with complication] Onset: 03-22-2025 08-15-2016 Chronic Diabetes mellitus without complication (8 sources) Type 2 diabetes mellitus without complications; Translations: [Diabetes mellitus without mention of complication, type II or unspecified type, not stated as uncontrolled] 09-22-2023 Chronic Disorders of lipid metabolism (8 sources) Hyperlipidemia; Translations: [Hyperlipidemia, unspecified] 04-28-2024 Chronic Essential hypertension (20 sources) Essential hypertension; Translations: [Essential (primary) hypertension] Onset: 01-27-2025 09-18-2023 Chronic Malaise and fatigue (6 sources) Fatigue; Translations: [Other fatigue] 10-28-2024 Episodic Open wounds of extremities (13 sources) Amputated left lower limb below knee; Translations: [Complete traumatic amputation at level between knee and ankle, left lower leg, initial encounter] 08-22-2023 Chronic Other aftercare (1 source) superintendent terminal (current) use of insulin; Translations: [superintendent terminal (current) use of insulin] Onset: 01-27-2025 Episodic Other circulatory disease (9 sources) Vasculitis; Translations: [Arteritis, unspecified] 02-15-2025 Chronic Other circulatory disease (1 source) Arteritis, unspecified; Translations: [Arteritis, unspecified] Onset: 02-15-2025 Chronic Other connective tissue disease (8 sources) Triggering of digit; Translations: [Trigger finger, left middle finger] 02-26-2024 Episodic Other connective tissue disease (11 sources) Weakness of right hand; Translations: [Other symptoms and signs involving the musculoskeletal system] 10-28-2024 Episodic Other inflammatory condition of skin (6 sources) Seborrheic dermatitis; Translations: [Seborrheic dermatitis, unspecified] 02-15-2025 Episodic Other lower respiratory disease (1 source) Orthopnea; Translations: [Orthopnea] 04-25-2025 Episodic Other nutritional; endocrine; and metabolic disorders (11 sources) Obese class I; Translations: [Obesity (BMI 30.0-34.9)] 10-28-2024 Chronic Other screening for suspected conditions (not mental disorders or infectious disease) (7 sources) Patient encounter status; Translations: [Encounter for screening for malignant neoplasm of colon] 10-28-2024 Episodic Other skin disorders (1 source) Other seborrheic keratosis; Translations: [Other seborrheic keratosis] 09-22-2023 Episodic Other upper respiratory disease (4 sources) Seasonal allergy; Translations: [Other seasonal allergic rhinitis] 01-27-2025 Chronic Other upper respiratory disease (6 sources) Nasal congestion; Translations: [Nasal congestion] 10-28-2024 Episodic Pneumonia (except that caused by tuberculosis or sexually transmitted disease) (1 source) Pneumonia; Translations: [Pneumonia, unspecified organism] 04-25-2025 Episodic Residual codes; unclassified (5 sources) Obstructive sleep apnea syndrome; Translations: [Obstructive sleep apnea (adult) (pediatric)] 01-27-2025 Chronic Residual codes; unclassified (1 source) Obstructive sleep apnea (adult) (pediatric); Translations: [Obstructive sleep apnea (adult) (pediatric)] Onset: 02-07-2025 Chronic Residual codes; unclassified (1 source) Hypersomnia, unspecified; Translations: [Hypersomnia, unspecified] Onset: 11-23-2024 Chronic Residual codes; unclassified (1 source) Procedure and treatment not carried out because of patient's decision for unspecified reasons; Translations: [Surgical or other procedure not carried out because of patient's decision] 09-22-2023 Episodic Residual codes; unclassified (10 sources) Medication refused; Translations: [Immunization not carried out because of patient refusal] 10-28-2024 Episodic Skin and subcutaneous tissue infections (10 sources) Cellulitis; Translations: [Cellulitis, unspecified] 01-28-2015 Episodic Superficial injury; contusion (11 sources) Blister of lower limb with infection; Translations: [Blister (nonthermal), left lower leg, initial encounter] 11-25-2024 Episodic Past or Other Problems Problem Classification Problem Date Documented Date Episodic/Chronic Other connective tissue disease (3 sources) Other symptoms and signs involving the musculoskeletal system; Translations: [Muscle weakness (generalized)] Onset: 12-22-2024 09-22-2023 Episodic Results Test Name Value Interpretation Reference Range Facility Absolute lymphocyte countOrd ered By: Joel Richardson on 04-25-2025 Lymphocytes Auto (Unsp spec) [#/Vol] 2.60 10*3/uL 0.83-4.51 [facility] Absolute neutrophil countOrd ered By: Joel Richardson on 04-25-2025 Neutrophils (Bld) [#/Vol] 5.8 10*3/uL 2.0-7.7 [facility] Anion gap in Serum or Plasma Ordered By: Joel Richardson on 04-25-2025 Anion gap [Moles/Vol] 11 mmol/L 5-15 [facility] Automated lymphocyte count a s percentage of total leukocytesOrdered By: Joel Richardson on 04-25-2025 Lymphocytes/100 WBC Auto (Unsp spec) 27.4 % 19-41 [facility] BUN/creatinine ratioOrdered By: Joel Richardson on 04-25-2025 Urea nitrogen/Creatinine [Mass ratio] 22.7 mg/mg High 10-20 [facility] Basophil percentageOrdered B y: Joel Richardson on 04-25-2025 Basophils/100 WBC (Bld) 0.7 % 0-1 [facility] Carbon dioxide, total [Moles /volume] in Central venous bloodOrdered By: Joel Richardson on 04-25-2025 CO2 [Moles/Vol] 21.1 mmol/L 21.0-32.0 [facility] Chloride assayOrdered By: Luca Richardson on 04-25-2025 Chloride [Moles/Vol] 110 mmol/L High 98-108 [facility] Eosinophil percentageOrdered By: Joel Richardson on 04-25-2025 Eosinophils/100 WBC (Bld) 4.2 % 0-5 [facility] Erythrocyte distribution wid th ratioOrdered By: Joel Richardson on 04-25-2025 Erythrocyte distribution width (RBC) [Ratio] 13.6 % 11.6-14.6 [facility] Erythrocyte distribution wid th standard deviationOrdered By: Joel Richardson on 04-25-2025 Erythrocyte distribution width (RBC) [Ratio] 43.6 fl 35.1-43.9 [facility] Glomerular filtration rate ( GFR) estimation/1.73 sq m using serum, plasma, or whole bOrdered By: Joel Richardson on 04-25-2025 GFR/1.73 sq M.predicted among non-blacks MDRD (S/P/Bld) [Vol rate/Area] 77 mL/min/{1.73_m2} >60 [facility] Comment on above: mL/min/1.73m2 CKD-EP I Creatinine Equation (2020) Hematocrit Auto (Bld) [Volum e fraction]Ordered By: Joel Richardson on 04-25-2025 Hematocrit (Bld) [Volume fraction] 49.6 % 40-54 [facility] Hemoglobin measurementOrdere d By: Joel Richardson on 04-25-2025 Hemoglobin (Bld) [Mass/Vol] 17.0 g/dL High 13.0-16. 5 [facility] Immature granulocytes/100 WB C Auto (Bld)Ordered By: Joel Richardson on 04-25-2025 Immature granulocytes/100 WBC (Bld) 0.300 % 0.0-0.9 [facility] Comment on above: IG% - Immature Granu locytes (promyelocytes, myelocytes and metamyelocytes) > 1% indicates that a LEFT SHIFT is Present. Influenza virus A and B and SARS-CoV-2 (COVID-19) and Respiratory syncytial virus RNAOrdered By: Joel Richardson on 04-25-2025 SARS-CoV-2 (COVID-19) RNA MARE+probe Ql (Unsp spec) [facility] MCV (mean corpuscular volume ) determinationOrdered By: Joel Richardson on 04-25-2025 MCV (RBC) [Entitic vol] 87.6 fL 80-94 [facility] Mean corpuscular hemoglobin (MCH) determinationOrdered By: Joel Richardson on 04-25-2025 MCH (RBC) [Entitic mass] 30.0 pg 27.0-32.0 [facility] Mean corpuscular hemoglobin concentration (MCHC) determinationOrdered By: Joel Richardson on 04-25-2025 MCHC (RBC) [Mass/Vol] 34.3 g/dL 32-36 [facility] Mean platelet volume determi nationOrdered By: Joel Richardson on 04-25-2025 Platelet mean volume (Bld) [Entitic vol] 10.2 fL 6.2-12.0 [facility] Monocyte percentageOrdered B y: Joel Richardson on 04-25-2025 Monocytes/100 WBC (Bld) 6.7 % 0-10 [facility] Natriuretic peptide.B prohor randall N-Terminal [Mass/volume] in Serum or PlasmaOrdered By: Joel Richardson on 04-25-2025 Natriuretic peptide.B prohormone N-Terminal [Mass/Vol] 1201 pg/mL High <900 [facility] Comment on above: Heart Failure Unlike ly: < 300 pg/mLHeart Failure Likely< 50 Years: > 450 pg/mL50-75 Years: > 900 pg/mL>75 Years: > 1800 pg/mL Neutrophil percentageOrdered By: Joel Richardson on 04-25-2025 Neutrophils/100 WBC (Bld) 60.7 % 47-70 [facility] Nucleated red blood cell per centageOrdered By: Joel Richardson on 04-25-2025 Nucleated RBC/100 WBC (Bld) [Ratio] 0 % 0-5 [facility] Platelet countOrdered By: Luca Richardson on 04-25-2025 Platelets (Bld) [#/Vol] 262 10*3/uL 150-450 [facility] Potassium measurement (mass/ volume)Ordered By: Joel Richardson on 04-25-2025 Potassium (Unsp spec) [Mass/Vol] 3.9 mmol/L 3.3-5.1 [facility] RBC Auto (Bld) [#/Vol]Ordere d By: Joel Richardson on 04-25-2025 RBC (Bld) [#/Vol] 5.66 10*6/uL 4.6-6.2 [facility] Serum creatinine measurement (mass/volume)Ordered By: Joel Richardson on 04-25-2025 Creatinine [Mass/Vol] 1.08 mg/dL 0.70-1.20 [facility] Serum glucose measurement (m ass/volume)Ordered By: Joel Richardson on 04-25-2025 Glucose [Mass/Vol] 88 mg/dL 70-99 [facility] Serum or plasma calcium apple urement (mass/volume)Ordered By: Joel Richardson on 04-25-2025 Calcium [Mass/Vol] 8.9 mg/dL 7.6-11.0 [facility] Serum or plasma urea nitroge n measurement (mass/volume)Ordered By: Joel Richardson on 04-25-2025 Urea nitrogen [Mass/Vol] 25 mg/dL High 4-19 [facility] Sodium levelOrdered By: Joel Richardson on 04-25-2025 Sodium [Moles/Vol] 141 mmol/L 133-145 [facility] White blood cell (WBC) count Ordered By: Joel Richardson on 04-25-2025 WBC (Bld) [#/Vol] 9.5 10*3/uL 4.4-11.0 [facility] ALEXANDRA w/ Reflex Mult Confirmon 04-10-2025 ANTI-DNA (DS)AB TNP Normal [facility] Comment on above: Performed By: #### L 3300.1200, L501.6710, L3100.5450 #### [facility] [address] [place], [address] ANTI-SS-A TNP Normal [facility] Comment on above: Performed By: #### L 3300.1200, L501.6710, L3100.5450 #### [facility] [address] [place], [address] ANTI-SS-B TNP Normal [facility] Comment on above: Performed By: #### L 3300.1200, L501.6710, L3100.5450 #### [facility] [address] [place], [address] ANCAon 03-19-2025 Atypical pANCA <1:20 Normal Neg:<1:20 [facility] Comment on above: Result Comment: The atypical pANCA pattern has been observed in a significant percentage of patients with ulcerative colitis, primary sclerosing cholangitis and autoimmune hepatitis. Performed at: [facility] [id number] Net Developer: Anibal Arrington PhD, Phone: [phone] Performed By: #### L 3300.1200, [id number], L3100.5450 #### [facility] [address] [place], [address] Cytoplasmic Ab <1:20 Normal Neg:<1:20 [facility] Comment on above: Performed By: #### L 3300.1200, L501.6710, L3100.5450 #### [facility] [address] [place], [address] Perinuclear Ab. <1:20 Normal Neg:<1:20 [facility] Comment on above: Result Comment: The presence of positive fluorescence exhibiting P-ANCA or C-ANCA patterns alone is not specific for the diagnosis of Sigrid's Granulomatosis (WG) or microscopic polyangiitis. Decisions about treatment should not be based solely on ANCA IFA results. The International ANCA Group Consensus recommends follow up testing of positive sera with both UT- 3 and MPO-ANCA enzyme immunoassays. As many as 5% serum samples are positive only by EIA. Ref. AM J Clin Pathol 1999;111:507-513. Performed By: #### L 3300.1200, L501.6710, L3100.5450 #### [facility] [address] [place], [address] Absolute lymphocyte countOrd ered By: Niurka Simons on 03-16-2025 Lymphocytes Auto (Unsp spec) [#/Vol] 2.93 10*3/uL 0.83-4.51 [facility] Absolute neutrophil countOrd ered By: Niurka Kristyn on 03-16-2025 Neutrophils (Bld) [#/Vol] 5.4 10*3/uL 2.0-7.7 [facility] Anion gap in Serum or Plasma Ordered By: Niurka Simons on 03-16-2025 Anion gap [Moles/Vol] 13 mmol/L - [facility] Automated lymphocyte count a s percentage of total leukocytesOrdered By: Niurka Simons on 03-16-2025 Lymphocytes/100 WBC Auto (Unsp spec) 30.6 % [facility] BUN/creatinine ratioOrdered By: Niurka Simons on 03-16-2025 Urea nitrogen/Creatinine [Mass ratio] 20.4 mg/mg High 10- [facility] Basophil percentageOrdered B y: Niurka Simons on 03-16-2025 Basophils/100 WBC (Bld) 1.0 % 0-1 [facility] Bilirubin, totalOrdered By: Niurka Simons on 03-16-2025 Bilirubin [Mass/Vol] 0.52 mg/dL 0.00-1.30 [facility] CBC W/Diff, Automatedon 02-17-2024 Absolute Lymph 2.93 X10 3/uL Normal 0.83-4.51 [facility] Comment on above: Performed By: #### L 100.0100, L500.4100, L500.4050 #### [facility] [address] [place], [address] Absolute Neut 5.4 X10 3/uL Normal 2.0-7.7 [facility] Comment on above: Performed By: #### L 100.0100, L500.4100, L500.4050 #### [facility] [address] [place], [address] Basophils/100 WBC (Bld) 1.0 % Normal 0-1 [facility] Comment on above: Performed By: #### L 100.0100, L500.4100, L500.4050 #### [facility] [address] [place], [address] Eosinophils/100 WBC (Bld) 4.6 % Normal 0-5 [facility] Comment on above: Performed By: #### L 100.0100, L500.4100, L500.4050 #### [facility] [address] [place], [address] Erythrocyte distribution width (RBC) [Ratio] 13.3 % Normal 11.6-14.6 [facility] Comment on above: Performed By: #### L 100.0100, L500.4100, L500.4050 #### [facility] [address] [place], [address] Hematocrit (Bld) [Volume fraction] 49.2 % Normal 40-54 [facility] Comment on above: Performed By: #### L 100.0100, L500.4100, L500.4050 #### [facility] [address] [place], [address] Hemoglobin (Bld) [Mass/Vol] 16.5 g/dL Normal 13.0-16. 5 [facility] Comment on above: Performed By: #### L 100.0100, L500.4100, L500.4050 #### [facility] [address] [place], [address] IG% 0.600 Normal 0.0-0.9 [facility] Comment on above: Result Comment: IG% - Immature Granulocytes (promyelocytes, myelocytes and metamyelocytes) > 1% indicates that a LEFT SHIFT is Present. Performed By: #### L 100.0100, L500.4100, L500.4050 #### [facility] [address] [place], [address] Lymphocytes/100 WBC (Bld) 30.6 % Normal 19-41 [facility] Comment on above: Performed By: #### L 100.0100, L500.4100, L500.4050 #### [facility] [address] [place], [address] MCH (RBC) [Entitic mass] 29.8 pg Normal 27.0-32.0 [facility] Comment on above: Performed By: #### L 100.0100, L500.4100, L500.4050 #### [facility] [address] [place], [address] MCHC (RBC) [Mass/Vol] 33.5 g/dL Normal 32-36 [facility] Comment on above: Performed By: #### L 100.0100, L500.4100, L500.4050 #### [facility] [address] [place], [address] MCV (RBC) [Entitic vol] 89.0 fL Normal 80-94 [facility] Comment on above: Performed By: #### L 100.0100, L500.4100, L500.4050 #### [facility] [address] [place], [address] Monocytes/100 WBC (Bld) 7.1 % Normal 0-10 [facility] Comment on above: Performed By: #### L 100.0100, L500.4100, L500.4050 #### [facility] [address] [place], [address] Neutrophils/100 WBC (Bld) 56.1 % Normal 47-70 [facility] Comment on above: Performed By: #### L 100.0100, L500.4100, L500.4050 #### [facility] [address] [place], [address] Nucleated RBC (Bld) [#/Vol] 0 10*3/uL Normal 0-5 [facility] Comment on above: Performed By: #### L 100.0100, L500.4100, L500.4050 #### [facility] [address] [place], [address] Platelet mean volume (Bld) [Entitic vol] 11.0 fL Normal 6.2-12.0 [facility] Comment on above: Performed By: #### L 100.0100, L500.4100, L500.4050 #### [facility] [address] [place], [address] Platelets (Bld) [#/Vol] 242 10*3/uL Normal 150-450 [facility] Comment on above: Performed By: #### L 100.0100, L500.4100, L500.4050 #### [facility] [address] [place], [address] RBC (Bld) [#/Vol] 5.53 10*6/uL Normal 4.6-6.2 [facility] Comment on above: Performed By: #### L 100.0100, L500.4100, L500.4050 #### [facility] [address] [place], [address] RDW SD 43.4 fl Normal 35.1-43.9 [facility] Comment on above: Performed By: #### L 100.0100, L500.4100, L500.4050 #### [facility] [address] [place], [address] WBC (Bld) [#/Vol] 9.6 10*3/uL Normal 4.4-11.0 [facility] Comment on above: Performed By: #### L 100.0100, L500.4100, L500.4050 #### [facility] [address] [place], [address] CRPon 03-16-2025 C-REACTIVE PROT 4.18 mg/L High 0.0-3.0 [facility] Comment on above: Performed By: #### L 3300.1200, L501.6710, L3100.5450 #### [facility] [address] [place], [address] Calculated very low density lipoprotein (VLDL) cholesterol measurementOrdered By: Niurka Kristyn on 03-16-2025 Calculated very low density lipoprotein (VLDL) cholesterol measurement 21 mg/dL 5-40 [facility] Carbon dioxide, total [Moles /volume] in Central venous bloodOrdered By: Niurka Greene on 03-16-2025 CO2 [Moles/Vol] 21.9 mmol/L 21.0-32.0 [facility] Chloride assayOrdered By: Al ycia Greene on 03-16-2025 Chloride [Moles/Vol] 107 mmol/L 98-108 [facility] Comprehensive Metabolic Prof ilon 03-16-2025 Albumin [Mass/Vol] 4.0 g/dL Normal 3.4-4.8 [facility] Comment on above: Performed By: #### L 100.0100, L500.4100, L500.4050 #### [facility] [address] [place], [address] Albumin/Globulin [Mass ratio] 1.2 {ratio} Normal 0.9-2.4 [facility] Comment on above: Performed By: #### L 100.0100, L500.4100, L500.4050 #### [facility] [address] [place], [address] ALK PHOS 83 U/L Normal 40-129 [facility] Comment on above: Performed By: #### L 100.0100, L500.4100, L500.4050 #### [facility] [address] [place], [address] ALT [Catalytic activity/Vol] 34 U/L Normal <=46 [facility] Comment on above: Performed By: #### L 100.0100, L500.4100, L500.4050 #### [facility] [address] [place], [address] AST [Catalytic activity/Vol] 35 U/L Normal <=37 [facility] Comment on above: Performed By: #### L 100.0100, L500.4100, L500.4050 #### [facility] [address] [place], [address] Bilirubin [Mass/Vol] 0.52 mg/dL Normal 0.00-1.30 [facility] Comment on above: Performed By: #### L 100.0100, L500.4100, L500.4050 #### [facility] [address] [place], [address] BUN/CRE 20.4 RATIO High 10-20 [facility] Comment on above: Performed By: #### L 100.0100, L500.4100, L500.4050 #### [facility] [address] [place], [address] Calcium [Mass/Vol] 9.5 mg/dL Normal 7.6-11.0 [facility] Comment on above: Performed By: #### L 100.0100, L500.4100, L500.4050 #### [facility] [address] [place], [address] Chloride [Moles/Vol] 107 mmol/L Normal 98-108 [facility] Comment on above: Performed By: #### L 100.0100, L500.4100, L500.4050 #### [facility] [address] [place], [address] CO2 [Moles/Vol] 21.9 mmol/L Normal 21.0-32.0 [facility] Comment on above: Performed By: #### L 100.0100, L500.4100, L500.4050 #### [facility] [address] [place], [address] Creatinine [Mass/Vol] 1.34 mg/dL High 0.70-1.20 [facility] Comment on above: Performed By: #### L 100.0100, L500.4100, L500.4050 #### [facility] [address] [place], [address] GAP 13 Normal 5-15 [facility] Comment on above: Performed By: #### L 100.0100, L500.4100, L500.4050 #### [facility] [address] [place], [address] GFR/1.73 sq M.predicted among non-blacks MDRD (S/P/Bld) [Vol rate/Area] 59 mL/min/{1.73_m2} Low >60 [facility] Comment on above: Result Comment: mL/m in/1.73m2 CKD-EPI Creatinine Equation (2020) Performed By: #### L 100.0100, L500.4100, L500.4050 #### [facility] [address] [place], [address] Globulin (S) [Mass/Vol] 3.4 g/dL Normal 2.2-4.2 [facility] Comment on above: Performed By: #### L 100.0100, L500.4100, L500.4050 #### [facility] [address] [place], [address] Glucose [Mass/Vol] 130 mg/dL High 70-99 [facility] Comment on above: Performed By: #### L 100.0100, L500.4100, L500.4050 #### [facility] [address] [place], [address] Potassium [Moles/Vol] 4.4 mmol/L Normal 3.3-5.1 [facility] Comment on above: Performed By: #### L 100.0100, L500.4100, L500.4050 #### [facility] [address] [place], [address] Sodium [Moles/Vol] 142 mmol/L Normal 133-145 [facility] Comment on above: Performed By: #### L 100.0100, L500.4100, L500.4050 #### [facility] [address] [place], [address] T PROT 7.5 g/dL Normal 5.9-8.4 [facility] Comment on above: Performed By: #### L 100.0100, L500.4100, L500.4050 #### [facility] [address] [place], [address] Urea nitrogen [Mass/Vol] 27 mg/dL High 4-19 [facility] Comment on above: Performed By: #### L 100.0100, L500.4100, L500.4050 #### [facility] [address] [place], [address] Eosinophil percentageOrdered By: Niurka Simons on 03-16-2025 Eosinophils/100 WBC (Bld) 4.6 % 0-5 [facility] Erythrocyte distribution wid th ratioOrdered By: Niurka Simons on 03-16-2025 Erythrocyte distribution width (RBC) [Ratio] 13.3 % 11.6-14.6 [facility] Erythrocyte distribution wid th standard deviationOrdered By: Niurka Simons on 03-16-2025 Erythrocyte distribution width (RBC) [Ratio] 43.4 fl 35.1-43.9 [facility] Glomerular filtration rate ( GFR) estimation/1.73 sq m using serum, plasma, or whole bOrdered By: Niurka Simons on 03-16-2025 GFR/1.73 sq M.predicted among non-blacks MDRD (S/P/Bld) [Vol rate/Area] 59 mL/min/{1.73_m2} Low >60 [facility] Comment on above: mL/min/1.73m2 CKD-EP I Creatinine Equation (2020) Hematocrit Auto (Bld) [Volum e fraction]Ordered By: Niurka Simons on 03-16-2025 Hematocrit (Bld) [Volume fraction] 49.2 % 40-54 [facility] Hemoglobin measurementOrdere d By: Niurka Simons on 03-16-2025 Hemoglobin (Bld) [Mass/Vol] 16.5 g/dL 13.0-16. 5 [facility] Immature granulocytes/100 WB C Auto (Bld)Ordered By: Niurka Simons on 03-16-2025 Immature granulocytes/100 WBC (Bld) 0.600 % 0.0-0.9 [facility] Comment on above: IG% - Immature Granu locytes (promyelocytes, myelocytes and metamyelocytes) > 1% indicates that a LEFT SHIFT is Present. LDL calc ser/plasOrdered By: Niurka Simons on 03-16-2025 Cholesterol in LDL [Mass/Vol] 165 mg/dL [facility] Comment on above: Dpgvqagevx=874-678 m g/dL & Higher Yhkw=565 mg/dL or greaterFriedwald Equation for LDL-C Laboratory - Chemistry and C hemistry - challengeOrdered By: Niurka Simons on 03-16-2025 AST [Catalytic activity/Vol] 35 U/L <38 [facility] Lipid Profileon 03-16-2025 CHOL:HDL 4.85 Normal [facility] Comment on above: Performed By: #### L 100.0100, L500.4100, L500.4050 #### [facility] [address] [place], [address] Cholesterol [Mass/Vol] 234 mg/dL High <=200 [facility] Comment on above: Result Comment: Chol esterol level, Desirable <200 mg/dL Borderline high cholesterol 200-239 mg/dL High cholesterol >=240 mg/dL Recommendations of the NCEP Adult Treatment Panel for the following risk-cutoff thresholds for the [place] population. Performed By: #### L 100.0100, L500.4100, L500.4050 #### [facility] [address] [place], [address] Cholesterol in HDL [Mass/Vol] 48 mg/dL Normal [facility] Comment on above: Result Comment: Mena onal Cholesterol Education Program (NCEP) guidelines: <40 mg/dL: Low HDL-cholesterol (major risk factor for CHD) >= 60 mg/dL: High HDL-cholesterol (negative risk factor for CHD) HDL-cholesterol is affected by a number of factors, e.g. smoking, exercise, hormones, sex and age. Performed By: #### L 100.0100, L500.4100, L500.4050 #### [facility] [address] [place], [address] Cholesterol in LDL [Mass/Vol] 165 mg/dL Normal [facility] Comment on above: Result Comment: Bord glstpe=389-275 mg/dL Higher Xhhb=410 mg/dL or greater Friedwald Equation for LDL-C Performed By: #### L 100.0100, L500.4100, L500.4050 #### [facility] [address] [place], [address] Cholesterol in VLDL [Mass/Vol] 21 mg/dL Normal 5-40 [facility] Comment on above: Performed By: #### L 100.0100, L500.4100, L500.4050 #### [facility] [address] [place], [address] Triglyceride [Mass/Vol] 104 mg/dL Normal [facility] Comment on above: Result Comment: The drugs N-Acetylcysteine and Metamizole may falsely depress this assay. Normal range: <150 mg/dL Borderline High: 150-199 mg/dL High: 200-499 mg/dL Very High: >500 mg/dL Performed By: #### L 100.0100, L500.4100, L500.4050 #### [facility] [address] [place], [address] MCV (mean corpuscular volume ) determinationOrdered By: Niurka Simons on 03-16-2025 MCV (RBC) [Entitic vol] 89.0 fL 80-94 [facility] Mean corpuscular hemoglobin (MCH) determinationOrdered By: Niurka Simons on 03-16-2025 MCH (RBC) [Entitic mass] 29.8 pg 27.0-32.0 [facility] Mean corpuscular hemoglobin concentration (MCHC) determinationOrdered By: Niurkabryon Kleinlay on 03-16-2025 MCHC (RBC) [Mass/Vol] 33.5 g/dL 32-36 [facility] Mean platelet volume determi nationOrdered By: Niurkabryon Simons on 03-16-2025 Platelet mean volume (Bld) [Entitic vol] 11.0 fL 6.2-12.0 [facility] Microalb:Creat Ratio,Random URon 03-16-2025 Creatinine [Mass/Vol] 190.00 mg/dL Normal 39.00- 259. 00 [facility] Comment on above: Performed By: #### L 502.0250 ####[facility] [id number] [place], [place], [id number] MALB:CREAT 32.9 mg/g CRE High <30 mg/g CRE [facility] Comment on above: Performed By: #### L 502.0250 ####[facility] [address] [place], [place], [id number] MICROALBUMIN,UR 62.6 mg/L Normal <20 mg/L [facility] Comment on above: Performed By: #### L 502.0250 ####[facility] [address] [place], [place], [id number] Monocyte percentageOrdered B y: Niurka Simons on 03-16-2025 Monocytes/100 WBC (Bld) 7.1 % 0-10 [facility] Neutrophil percentageOrdered By: Niurkabryon Simons on 03-16-2025 Neutrophils/100 WBC (Bld) 56.1 % 47-70 [facility] Nucleated red blood cell per centageOrdered By: Niurka Simons on 03-16-2025 Nucleated RBC/100 WBC (Bld) [Ratio] 0 % 0-5 [facility] Platelet countOrdered By: Luca Simons on 03-16-2025 Platelets (Bld) [#/Vol] 242 10*3/uL 150-450 [facility] Potassium measurement (mass/ volume)Ordered By: iNurka Simons on 03-16-2025 Potassium (Unsp spec) [Mass/Vol] 4.4 mmol/L 3.3-5.1 [facility] RBC Auto (Bld) [#/Vol]Ordere d By: Niurka Simons on 03-16-2025 RBC (Bld) [#/Vol] 5.53 10*6/uL 4.6-6.2 [facility] Random urine creatinine apple urement (mass/volume)Ordered By: Niurka Simons on 03-16-2025 Creatinine Unsp time (U) [Mass/Vol] 190.00 mg/dL 39.00-259. 00 [facility] Screening total cholesterol/ high density lipoprotein (HDL) cholesterol ratioOrdered By: Niurka Simons on 03-16-2025 Cholesterol.total/Cholester ol in HDL [Mass ratio] 4.85 {ratio} [facility] Serum DNA double strand anti body assay (units/volume)Ordered By: Atif Tang on 03-16-2025 DNA double strand Ab Qn (S) [facility] Comment on above: Test not performed Serum Scl-70 antibody assay (units/volume)Ordered By: Atif Tang on 03-16-2025 SCL-70 extractable nuclear Ab Qn (S) [facility] Comment on above: Test not performed Serum classic neutrophil cyt oplasmic antibody assay (units/volume)Ordered By: Atif Tang on 03-16-2025 Neutrophil cytoplasmic Ab.classic Qn (S) <1:20 titer Neg:<1:20 [facility] Serum creatinine measurement (mass/volume)Ordered By: Niurka Simons on 03-16-2025 Creatinine [Mass/Vol] 1.34 mg/dL High 0.70-1.20 [facility] Serum globulin measurementOr dered By: Niurka Simons on 03-16-2025 Globulin (S) [Mass/Vol] 3.4 g/dL 2.2-4.2 [facility] Serum glucose measurement (m ass/volume)Ordered By: Niurka Simons on 03-16-2025 Glucose [Mass/Vol] 130 mg/dL High 70-99 [facility] Serum or plasma C reactive p rotein measurement (mass/volume)Ordered By: Atif Tang on 03-16-2025 CRP [Mass/Vol] 4.18 mg/L High 0.0-3.0 [facility] Serum or plasma alanine arcos otransferase (ALT) measurementOrdered By: Niurka Simons on 03-16-2025 ALT [Catalytic activity/Vol] 34 U/L <47 [facility] Serum or plasma albumin apple urement (mass/volume)Ordered By: Niurka Simons on 03-16-2025 Albumin [Mass/Vol] 4.0 g/dL 3.4-4.8 [facility] Serum or plasma albumin/glob ulin mass ratioOrdered By: Niurka Simons on 03-16-2025 Albumin/Globulin [Mass ratio] 1.2 {ratio} 0.9-2.4 [facility] Serum or plasma alkaline stephanie sphatase measurementOrdered By: Niurka Simons on 03-16-2025 ALP [Catalytic activity/Vol] 83 U/L 40-129 [facility] Serum or plasma calcium apple urement (mass/volume)Ordered By: Niurka Simons on 03-16-2025 Calcium [Mass/Vol] 9.5 mg/dL 7.6-11.0 [facility] Serum or plasma cholesterol in HDL measurement (mass/volume)Ordered By: Niurka Simons on 03-16-2025 Cholesterol in HDL [Mass/Vol] 48 mg/dL >40 [facility] Comment on above: National Cholesterol Education Program (NCEP) guidelines:<40 mg/dL: Low HDL-cholesterol (major risk factor for CHD)>= 60 mg/dL: High HDL-cholesterol (negative risk factor for CHD)HDL-cholesterol is affected by a number of factors, e.g. smoking, exercise, hormones, sex and age. Serum or plasma cholesterol measurement (mass/volume)Ordered By: Niurka Simons on 03-16-2025 Cholesterol [Mass/Vol] 234 mg/dL High <201 [facility] Comment on above: Cholesterol level, D esirable <200 mg/dLBorderline high cholesterol 200-239 mg/dLHigh cholesterol >=240 mg/dLRecommendations of the NCEP Adult Treatment Panel for the following risk-cutoff thresholds for the [place] population. Serum or plasma urea nitroge n measurement (mass/volume)Ordered By: Niurka Simons on 03-16-2025 Urea nitrogen [Mass/Vol] 27 mg/dL High 4-19 [facility] Serum perinuclear neutrophil cytoplasmic antibody titer by immunofluorescenceOrdered By: Atif Tang on 03-16-2025 Neutrophil cytoplasmic Ab.perinuclear IF (S) [Titer] <1:20 titer Neg:<1:20 [facility] Comment on above: The presence of posi tive fluorescence exhibiting P-ANCA orC-ANCA patterns alone is not specific for the diagnosis ofWegener's Granulomatosis (WG) or microscopic polyangiitis.Decisions about treatment should not be based solely onANCA IFA results. The International ANCA Group Consensusrecommends follow up testing of positive sera with both UT-3 and MPO-ANCA enzyme immunoassays. As many as 5% serumsamples are positive only by EIA. Ref. AM J Clin Haxgrc2259;111:507-513. Sodium levelOrdered By: Madan Simons on 03-16-2025 Sodium [Moles/Vol] 142 mmol/L 133-145 [facility] Total proteinOrdered By: Arcadio Simons on 03-16-2025 Protein [Mass/Vol] 7.5 g/dL 5.9-8.4 [facility] Triglycerides measurementOrd ered By: Niurka Simons on 03-16-2025 Triglyceride [Mass/Vol] 104 mg/dL <199 [facility] Comment on above: The drugs N-Acetylcy steine and Metamizole may falsely depress this assay. Normal range: <150 mg/dLBorderline High: 150-199 mg/dLHigh: 200-499 mg/dLVery High: >500 mg/dL Urine albumin measurement wi th detection limit of 20 mg/L or less (mass/volume)Ordered By: Niurka Simons on 03-16-2025 Albumin DL <= 20 mg/L (U) [Mass/Vol] 62.6 mg/L <20 mg/L [facility] White blood cell (WBC) count Ordered By: Niurka Simons on 03-16-2025 WBC (Bld) [#/Vol] 9.6 10*3/uL 4.4-11.0 [facility] Internal Medicine Office Vis iton 02-24-2025 Internal Medicine Office Visit [facility] [address] [address] [place] [address] OFFICE VISIT Date of Service: 02/24/25 MR#: [id number] Acct: [id number] Name: JOE MOLINA Rep #: [id number] : 1960 Provider: ARGENIS Carbajal Age/Sex: 64/M Location: [facility] Status: Signed Intake Vital Signs 02/15/25 13:55 02/24/25 12:31 Height 6 ft 6 ft Weight: 252 lb 247 lb BMI 34.2 33.5 BP 126/80 H 122/80 H Blood Pressure Location Lt brachial Lt brachial Position Sitting Sitting Respiration 16 16 Pulse 75 67 Pulse Source Monitor Monitor Temp 97.6 F L 98.6 F Temp Source Temporal Temporal Pulse Oximetry (%) 99 99 Oxygen Delivery Method room air Intake Visit Reasons: 1 W FU Seismic Observer Required: No Is patient in pain?: No Allergies semaglutide (From Ozempic) Allergy (Intermediate, Verified 02/24/25 12:12) Vomiting Sulfa (Sulfonamide Antibiotics) Allergy (Verified 02/24/25 12:12) Unknown amlodipine Adverse Reaction (Mild, Verified 02/24/25 12:12) dizzy liraglutide (From Victoza) Adverse Reaction (Verified 02/24/25 12:12) Vomiting Seasonal Allergies: Uncoded (environmental) Adverse Reaction (Verified 02/24/25 12:12) Other Medications ???Medication ???Instructions ???Recorded ???Confirmed ???Type aspirin 81 mg tablet,delayed 81 mg PO DAILY 09/22/23 02/24/25 H istory release blood-glucose,market risk specialist, cont #1 ea 09/23/23 02/24/25 Rx (Dexcom G7 Impregnator And Drier) arm brace #1 ea 08/13/24 02/24/25 Rx blood-glucose sensor (Dexcom G7 #3 ea 08/23/24 02/24/25 Rx Sensor device) arm brace #1 ea 10/28/24 02/24/25 Rx insulin degludec 100 unit/mL (3 50 unit (0.5 mL) subcut DAILY #45 10/28/24 02/24/25 Rx mL) subcutaneous pen (Tresiba mL FlexTouch U-100 insulin) fexofenadine 180 mg tablet 180 mg PO QDAY #10 tabs 01/27/25 0 02/24/25 Rx (Kary Hives) insulin aspart U-100 100 unit/mL 12 - 20 unit (0.12 - 0.2 mL) 01/2702/24/25 Rx (3 mL) subcutaneous pen (Novolog subcut TID #15 pens FlexPen U-100 Insulin aspart) ketoconazole 2 % shampoo 1 applic topical 3XW #120 mL 02/1502/24/25 Rx Nurse's Note: RLE recheck. Pt states it looks and feels so much better, has been elevating, and did compression stocking as advised. 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 At this time patient states that he has no concern or complaints. The redness and swelling have totally resolved and he is not having any pains or problems. He has been elevating and has been wearing compression everyday. He states that he has lost a few more pounds and just feels overall much better. ROS Const Constitutional: No body ache, chills, excessive sweating, fatigue, fever(s), frequent falls, headache(s), snoring, weakness, sleep problems or change in appetite Eyes Eyes: No blurry vision, change in vision, eye pain or Light sensitivity ENT ENT: No abnormal hearing, ear or mastoid pain, tinnitus, nasal congestion, headache(s), neck pain or sore throat Resp Respiratory: No cough, shortness of breath, snoring or wheezing Cardio Cardiology: No chest pain at rest, chest pain with exertion, excessive sweating, shortness of breath, dyspnea on exertion, lightheadedness, orthopnea or palpitations Gastro GI: No abdominal pain, change in bowel habits, constipation, cramping, diarrhea, nausea/dyspepsia or vomiting Genitourinary Male: No burning urination, painful urination, urinary incontinence or urinary frequency Musc Musculoskeletal: No abnormal gait, joint pain, back pain, limited range of motion, neck pain or numbness Skin Skin: No dry skin, redness, lesions, itchy eyes, rash or wounds Neuro Neurology: No abnormal gait, abnormal hearing, (more content not included)... Normal [facility] Internal Medicine Office Vis ito 02-15-2025 Internal Medicine Office Visit [facility] [address] [place] [address] OFFICE VISIT Date of Service: 02/15/25 MR#: [id number] Acct: [id number] Name: JOE MOLINA Rep #: [id number] : 1960 Provider: ARGENIS Carbajal Age/Sex: 64/M Location: [facility] Status: Signed Intake Vital Signs 01/27/25 10:45 02/15/25 10:20 02/15/25 13:55 Height 6 ft 6 ft 6 ft Weight: 257 lb 252 lb BMI 34.8 34.2 BP 124/76 H 126/80 H Blood Pressure Location Lt brachial Lt brachial Position Sitting Sitting Respiration 16 16 Pulse 45 L 75 Pulse Source Monitor Monitor Temp 97.3 F L 97.6 F L Temp Source Temporal Temporal Pulse Oximetry (%) 99 99 Oxygen Delivery Method room air Intake Visit Reasons: ACUTE POSISBLE CELLULITIS Chief Complaint: Redness, swelling, rash on lower right leg Seismic Observer Required: No Accompanied by: Self Is patient in pain?: No Allergies semaglutide (From Ozempic) Allergy (Intermediate, Verified 02/15/25 13:56) Vomiting Sulfa (Sulfonamide Antibiotics) Allergy (Verified 02/15/25 13:56) Unknown amlodipine Adverse Reaction (Mild, Verified 02/15/25 13:56) dizzy liraglutide (From Victoza) Adverse Reaction (Verified 02/15/25 13:56) Vomiting Seasonal Allergies: Uncoded (environmental) Adverse Reaction (Verified 02/15/25 13:56) Other Medications ???Medication ???Instructions ???Recorded ???Confirmed ???Type aspirin 81 mg tablet,delayed 81 mg PO DAILY 09/22/23 02/15/25 H istory release blood-glucose,market risk specialist, cont #1 ea 09/23/23 02/15/25 Rx (Dexcom G7 Impregnator And Drier) arm brace #1 ea 08/13/24 02/15/25 Rx blood-glucose sensor (Dexcom G7 #3 ea 08/23/24 02/15/25 Rx Sensor device) arm brace #1 ea 10/28/24 02/15/25 Rx insulin degludec 100 unit/mL (3 50 unit (0.5 mL) subcut DAILY #45 10/28/24 02/15/25 Rx mL) subcutaneous pen (Tresiba mL FlexTouch U-100 insulin) fexofenadine 180 mg tablet 180 mg PO QDAY #10 tabs 01/27/25 0 02/15/25 Rx (Kary Hives) insulin aspart U-100 100 unit/mL 12 - 20 unit (0.12 - 0.2 mL) 01/2702/15/25 Rx (3 mL) subcutaneous pen (Novolog subcut TID #15 pens FlexPen U-100 Insulin aspart) cephalexin 500 mg capsule 500 mg PO TID #21 caps 02/15/25 Rx ketoconazole 2 % shampoo 1 applic topical 3XW #120 mL 02/1502/15/25 Rx prednisone 10 mg tablet 10 mg PO TID #15 tabs 02/15/2509/11 Rx Nurse's Note: Complaint of rash, swelling, and redness of lower right leg for 1 day. 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 He states that it started to get sort of blotchy red a few days ago although he states he always seems to have a little bit of discoloration there but that it just started to get worse and then even today it has become more generalized redness. He states he does not have really much discomfort with it. He has not noticed any swelling. He just again noticed that this has been progressively worsening in terms of the erythema and wanted to have this checked. ROS Const Constitutional: No body ache, chills, excessive sweating, fatigue, fever(s), frequent falls, headache(s), snoring, weakness, weight change, sleep problems or change in appetite Eyes Eyes: Positive for irritation; No blurry vision, change in vision, eye pain or Light sensitivity ENT ENT: Positive for nasal congestion; No abnormal hearing, ear or mastoid pain, tinnitus, headache(s), neck pain or sore throat Resp Respiratory: No cough, shortness of breath, snoring or wheezing Cardio Cardiology: No chest pain at rest, chest pain with exertion, excessive sweating, shortness of breath, dyspnea on exertion, lightheadedness, orthopnea, palpitations or other (no leg swelling) Gastro GI: No abdominal pain, change in bowel habits, constipation, (more content not included)... [facility] - Hematology and Cell countsOrdered By: Niurka Simons on 01-27-2025 HbA1c (Bld) [Mass fraction] 7.1 % High 4.2-6.3 [facility] Internal Medicine Office Vis iton 01-26-2025 Internal Medicine Office Visit [facility] [address] [place] [address] OFFICE VISIT Date of Service: 01/27/25 MR#: [id number] Acct: [id number] Name: JOE MOLINA Rep #: [id number] : 1960 Provider: Dr. Niurka adhikari MD Age/Sex: 64/M Location: [facility] Status: Signed Intake Vital Signs 10/28/24 10:10 11/25/24 17:18 01/27/25 10:45 Height 6 ft 6 ft 6 ft Weight: 257 lb BMI 34.8 BP 124/76 H Blood Pressure Location Lt brachial Position Sitting Respiration 16 Pulse 45 L Pulse Source Monitor Temp 97.3 F L Temp Source Temporal Pulse Oximetry (%) 99 Oxygen Delivery Method room air Intake Visit Reasons: 3 m Seismic Observer Required: No Is patient in pain?: No Allergies semaglutide (From Ozempic) Allergy (Intermediate, Verified 01/27/25 10:35) Vomiting Sulfa (Sulfonamide Antibiotics) Allergy (Verified 01/27/25 10:35) Unknown amlodipine Adverse Reaction (Mild, Verified 01/27/25 10:35) dizzy liraglutide (From Victoza) Adverse Reaction (Verified 01/27/25 10:35) Vomiting Seasonal Allergies: Uncoded (environmental) Adverse Reaction (Verified 01/27/25 10:35) Other Medications ???Medication ???Instructions ???Recorded ???Confirmed ???Type aspirin 81 mg tablet,delayed 81 mg PO DAILY 09/22/23 01/27/25 H istory release blood-glucose,market risk specialist, cont #1 ea 09/23/23 01/27/25 Rx (Dexcom G7 Impregnator And Drier) arm brace #1 ea 08/13/24 01/27/25 Rx blood-glucose sensor (Dexcom G7 #3 ea 08/23/24 01/27/25 Rx Sensor device) arm brace #1 ea 10/28/24 01/27/25 Rx insulin degludec 100 unit/mL (3 50 unit (0.5 mL) subcut DAILY #45 10/28/24 01/27/25 Rx mL) subcutaneous pen (Tresiba mL FlexTouch U-100 insulin) fexofenadine 180 mg tablet 180 mg PO QDAY #10 tabs 01/27/25 0 01/27/25 Rx (Kary Hives) insulin aspart U-100 100 unit/mL 12 - 20 unit (0.12 - 0.2 mL) 01/2701/27/25 Rx (3 mL) subcutaneous pen (Novolog subcut TID #15 pens FlexPen U-100 Insulin aspart) Nurse's Note: Pt states both eyes have been dealing w/ discomfort. Pt denies burning feeling. Has some redness, no itching. 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 He is due for some routine blood work. He reports he did the cologuard and was told it was negative. He doesn't want any immunizations. He doesn't smoke and does not need refills. He reports he is doing well in terms of eating healthy. He reports his activity level has been doing better stating he just started going to the gym. He does check his sugars at home through a dexcom. He reports his sugars have been doing pretty good. It has been averaging around the 160s. Currently it is 140. He hasn't had any low readings. He has had some readings over 200, but states it is less often. The patient reports he has been just taking his insulin. He does his own insulin injections into his abdomen. He does try to monitor his carbohydrate and sugar intake. He reports his eye exam is up to date and he has another appointment on Friday. He doesn't feel that he does well with the injections. He does follow with podiatry. He hasn't had any further problems with ulcers or infections. He reports he is supposed to get a new prosthetic next week. He reports he is trying to do pickleball and states the new prosthetic will help with his movement. At his last office visit, he complained of weakness, numbness and tingling of his right hand. An EMG was completed which showed neuropathy and he was encouraged to use the wrist splint as previously ordered. He reports that it is doing better, however, he does continue to have symptoms. He reports the wrist brace starts to bother him after a while. S (more content not included)... [facility] Urgent Care Visit Reporton 0 11-25-2024 Urgent Care Visit Report [facility] [address], [address] [place] [address] OFFICE VISIT Date of Service: 11/25/24 MR#: [id number] Acct: [id number] Name: JOE MOLINA Rep #: [id number] : 1960 Provider: ARGENIS Perry Age/Sex: 64/M Location: [facility] Status: Signed Intake Vital Signs 10/28/24 10:10 11/25/24 17:18 Height 6 ft 6 ft Weight: 260 lb 2 oz BMI 35.2 BP 110/60 Position Sitting Pulse 49 L Temp 98.7 F Temp Source Oral Pulse Oximetry (%) 99 Oxygen Delivery Method room air Intake Visit Reasons: CONCERN FOR INFECTION IN L LEG Accompanied by: Self Allergies semaglutide (From Ozempic) Allergy (Intermediate, Verified 11/25/24 17:18) Vomiting Sulfa (Sulfonamide Antibiotics) Allergy (Verified 11/25/24 17:18) Unknown amlodipine Adverse Reaction (Mild, Verified 11/25/24 17:18) dizzy liraglutide (From Victoza) Adverse Reaction (Verified 11/25/24 17:18) Vomiting Seasonal Allergies: Uncoded (environmental) Adverse Reaction (Verified 11/25/24 17:18) Other Medications ???Medication ???Instructions ???Recorded ???Confirmed ???Type aspirin 81 mg tablet,delayed 81 mg PO DAILY 09/22/23 10/28/24 H istory release blood-glucose meter,continuous #1 ea 09/23/23 10/28/24 Rx (Dexcom G7 Impregnator And Drier) azelastine 0.05 % eye drops 1 drp ophthalmic (eye) BID #6 mL 0 01/26/24 10/28/24 Rx arm brace #1 ea 08/13/24 10/28/24 Rx blood-glucose sensor (Dexcom G7 #3 ea 08/23/24 10/28/24 Rx Sensor device) arm brace #1 ea 10/28/24 10/28/24 Rx fluticasone propionate 50 1 spray intranasal QDAY #16 grams 10/28/24 10/28/24 Rx mcg/actuation nasal spray,suspension (Flonase Allergy Relief) insulin aspart U-100 100 unit/mL 12 - 20 unit (0.12 - 0.2 mL) 10/2811/25/24 Rx (3 mL) subcutaneous pen (Novolog subcut TID #45 mL FlexPen U-100 Insulin aspart) insulin degludec 100 unit/mL (3 50 unit (0.5 mL) subcut DAILY #45 10/28/24 11/25/24 Rx mL) subcutaneous pen (Tresiba mL FlexTouch U-100 insulin) cephalexin 500 mg capsule 500 mg PO Q12H 10 days #20 caps 11/25/24 Rx Nurse's Note: Patient has a prosthetic left leg and on his stump he has a blister on the end. Patient states its been their about a month but last night he noticed that it was redder then normal. Patient states it a deeper red. Patient denies any pain and not warm to touch. 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 Patient states that he developed a blister on his left stump approximately 1 month ago and states that the area has not completely healed and he has noticed more redness over the past several days. He does state cleaning the area daily with Hibiclens and placing a bandage over it more recently. He denies fever, chills or sweats. No nausea, vomiting or diarrhea. No other associated symptoms or alleviating/aggravating factors. ROS Const Constitutional: No other (6 system ROS completed with pertinent findings in the HPI otherwise normal.) Exam Const General: cooperative and healthy appearing Skin General: no rashes or lesions noted Neuro General: patient alert Extrem Other: Left BKA with small blister at the end of the stump and minimal erythema surrounding without streaking, induration or fluctuance. Psych Appearance: grossly normal Mental Status: mental status grossly normal Coding Level of Care Code Off vis,new,level 3 Diagnoses Infected blister of left leg S80.822A; L08.9 Assessment and Plan Assessment and Plan (1) Infected blister of left leg: Status: Acute Plan: Keflex as prescribed today. Patient advised he needs to follow-up with his PCP for further evaluation and treatment in 5 to 7 days for reevaluation. Patient advised to continue wit (more content not included)... [facility] NCS and/or EMG Patienton NCS and/or EMG Patient [facility] Pulmonary Services/Neurology [address] [place] [address] MR#: [id number] Acct: [id number] Name: JOE MOLINA Rep #: [id number] : 1960 64 From: Rowan Mulligan MD Referring Dr: Niurka Simons MD Status: REG CLI Location: [facility] Date: 11/24/24 Sex: M C NCS and/or EMG Patient Report Ordering Doctor: Niurka Simons DATE OF SERVICE: 11/24/24 Joe presents with complaints of numbness and tingling and weakness in the right hand. He has a long history of diabetes. Electrodiagnostic findings: Right median motor response could not be obtained. Right ulnar motor nerve demonstrates prolonged latency with reduced amplitude and a 40% drop in conduction across the elbow. Sensory responses were not obtainable. Needle EMG testing was performed in the right upper limb. 1+ fibrillations noted in the first dorsal interosseous. Electrodiagnostic impression: This is an abnormal study of the right upper limb. 1. Electrodiagnostic findings are suggestive of right sided median neuropathy. As a response could not be obtained, it cannot be definitively stated that he has carpal tunnel syndrome. Would recommend correlation with two other limbs to better assess for peripheral polyneuropathy. 2. Electrodiagnostic evidence is noted for right ulnar neuropathy. There is evidence of axonal loss and there is evidence of conduction block across the elbow, consistent with a cubital tunnel syndrome. 3. There is no electrodiagnostic evidence for cervical radiculopathy or brachial plexopathy. Multi Select Codes Neurology Neurology Interp Codes: 95498-38 Musc test done w/n test comp (interp) and 28911-76 Nrv cndj test 7- 8 studies (interp) 11/24/24 1203 Date Rowan Mulligan MD CC: Dr. Niurka Simons MD; Dr. Rowan Mulligan MD Date Dictated: 11/24/24 115 Date Transcribed: 11/24/241157 Staff Editor: AA Signed Normal [facility] Hand Min 3 Viewson Hand Min 3 Views [facility] Imaging Services [address] [place] [id number] Hand Min 3 Views MR#: [id number] Acct: [id number] Name: JOE MOLINA Rep #: [id number] : 1960 M 64 From: Chay Rome MD PCP: Dr. Niurka Simons MD Status: REG CLI Study: Hand Min 3 Views Date of Exam: 10/28/24 Exam# [id number] Ordering Dr: Niurka Simons MD EXAM: XR Right Hand Complete, 3 or More Views CLINICAL INDICATION: HAND PAIN, ARTHRITIS TECHNIQUE: Frontal, lateral and oblique views of the right hand. COMPARISON: No relevant prior studies available. FINDINGS: BONES/JOINTS: Unremarkable. No acute fracture. No dislocation. No significant degenerative changes. SOFT TISSUES: Unremarkable. No radiopaque foreign body. RAD/Hand Min 3 Views IMPRESSION: Unremarkable exam. Reading Location: [facility] CC: Dr. Niurka Simons MD Staff Editor: Signed Normal [facility] - Hematology and Cell countsOrdered By: Niurka Simons on 10-28-2024 HbA1c (Bld) [Mass fraction] 7.4 % High 4.2-6.3 [facility] Internal Medicine Office Vis devonte 10-27-2024 Internal Medicine Office [facility] [address] [place] [address] [address] [place] [address] OFFICE VISIT Date of Service: 10/28/24 MR#: [id number] Acct: [id number] Name: JOE MOLINA Rep #: [id number] : 1960 Provider: Dr. Niurka adhikari MD Age/Sex: 64/M Location: [facility] Status: Signed Intake Vital Signs 04/28/24 10:20 10/28/24 10:10 Height 6 ft 6 ft Weight: 253 lb BMI 34.3 BP 130/78 H Blood Pressure Location Lt brachial Position Sitting Respiration 16 Pulse 42 L Pulse Source Monitor Temp 97.8 F Temp Source Temporal Pulse Oximetry (%) 98 Oxygen Delivery Method room air Intake Visit Reasons: fu Chief Complaint: 2m f/u Seismic Observer Required: No Is patient in pain?: No Allergies semaglutide (From Ozempic) Allergy (Intermediate, Verified 10/28/24 10:08) Vomiting Sulfa (Sulfonamide Antibiotics) Allergy (Verified 10/28/24 10:07) Unknown amlodipine Adverse Reaction (Mild, Verified 10/28/24 10:07) dizzy liraglutide (From Victoza) Adverse Reaction (Verified 10/28/24 10:07) Vomiting Seasonal Allergies: Uncoded (environmental) Adverse Reaction (Verified 10/28/24 10:20) Other Medications ???Medication ???Instructions ???Recorded ???Confirmed ???Type aspirin 81 mg tablet,delayed 81 mg PO DAILY 09/22/23 10/28/24 H istory release blood-glucose meter,continuous #1 ea 09/23/23 10/28/24 Rx (Dexcom G7 Impregnator And Drier) azelastine 0.05 % eye drops 1 drp ophthalmic (eye) BID #6 mL 0 01/26/24 10/28/24 Rx arm brace #1 ea 08/13/24 10/28/24 Rx blood-glucose sensor (Dexcom G7 #3 ea 08/23/24 10/28/24 Rx Sensor device) arm brace #1 ea 10/28/24 10/28/24 Rx fluticasone propionate 50 1 spray intranasal QDAY #16 grams 10/28/24 10/28/24 Rx mcg/actuation nasal spray,suspension (Flonase Allergy Relief) insulin aspart U-100 100 unit/mL 12 - 20 unit (0.12 - 0.2 mL) 10/2810/28/24 Rx (3 mL) subcutaneous pen (Novolog subcut TID #45 mL FlexPen U-100 Insulin aspart) insulin degludec 100 unit/mL (3 50 unit (0.5 mL) subcut DAILY #45 10/28/24 10/28/24 Rx mL) subcutaneous pen (Tresiba mL FlexTouch U-100 insulin) Nurse's Note: Needing refills and would like multiple on script as he is always calling in. 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 States the thumb is 90 degrees out. never got the brace as the pharmacy does not carry it. it is tight and fingers do not work right. Wonders what else he can do. States he is fatigued a lot states he takes a nap around 3-4pm has been going on for a long time but getting worse, states he sleeps for 2-3 hours and sleeps through the night and well but wakes up fatigued and not rested. 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 He is up to date on his routine blood work. He previously declined any colon cancer screening, but is now willing to do a cologuard. He doesn't want a flu shot. He doesn't smoke and does need refills. He reports he is doing well in terms of eating healthy. He reports his activity level has been doing better. He does check his sugars at home through a dexcom. He reports his sugars have been a little higher. It has been averaging between 110-230. This morning it was 223. He states his dexcom estimates his A1c to be around 7.5. He reports he has had readings as low as 67. He reports with low sugars, he will get sweaty. He reports he will eat something and that helps. The patient stopped using ozempic in March due to nausea. He was changed to rybelsus at that time, but stopped taking that a couple of months later due to the same. The patient reports he has been just taking his insulin. He does his own insulin injections into his abdomen. He does try to monitor his carbohydrate and sugar in (more content not included)... Normal [facility] Comprehensive Metabolic Prof ilon 04-28-2024 Albumin [Mass/Vol] 3.7 g/dL Normal 3.2-5.0 [facility] Comment on above: Performed By: #### L 500.4050 #### [facility] [address] [place], [address] Albumin/Globulin [Mass ratio] 0.9 {ratio} Normal 0.9-2.4 [facility] Comment on above: Performed By: #### L 500.4050 #### [facility] [address] [place], [address] ALK P 94 U/L Normal 45-117 [facility] Comment on above: Performed By: #### L 500.4050 #### [facility] [address] [place], [address] ALT [Catalytic activity/Vol] 38 U/L Normal 16-61 [facility] Comment on above: Performed By: #### L 500.4050 #### [facility] [address] [place], [address] AST [Catalytic activity/Vol] 28 U/L Normal 15-37 [facility] Comment on above: Performed By: #### L 500.4050 #### [facility] [address] [place], [address] Bilirubin [Mass/Vol] 0.60 mg/dL Normal 0.20-1.00 [facility] Comment on above: Result Comment: For patients on eltrombopag therapy, use of Dimension [place] TBIL is not recommended. Performed By: #### L 500.4050 #### [facility] [address] [place], [address] BUN/CRE 22.1 RATIO High 10-20 [facility] Comment on above: Performed By: #### L 500.4050 #### [facility] [address] [place], [address] CA,Total 9.6 mg/dL Normal 8.5-10.1 [facility] Comment on above: Performed By: #### L 500.4050 #### [facility] [address] [place], [address] Chloride [Moles/Vol] 109 mmol/L High 98-107 [facility] Comment on above: Performed By: #### L 500.4050 #### [facility] [address] [place], [address] CO2 [Moles/Vol] 22.0 mmol/L Normal 21.0-32.0 [facility] Comment on above: Performed By: #### L 500.4050 #### [facility] [address] [place], [address] Creatinine [Mass/Vol] 1.13 mg/dL Normal 0.70-1.30 [facility] Comment on above: Result Comment: The validity of the calculated GFR GFRAA in patients over 70 years has not been determined. Clinical correlation is essential. Performed By: #### L 500.4050 #### [facility] [address] [place], [address] EST GFR - AA 84 mL/min Normal >60 [facility] Comment on above: Result Comment: Afri can [place] GFR Calc Performed By: #### L 500.4050 #### [facility] [address] [place], [address] GAP 11 Normal 5-15 [facility] Comment on above: Performed By: #### L 500.4050 #### [facility] [address] [place], [address] GFR/1.73 sq M.predicted among non-blacks MDRD (S/P/Bld) [Vol rate/Area] 70 mL/min/{1.73_m2} Normal >60 [facility] Comment on above: Result Comment: Non- GFR Calc Performed By: #### L 500.4050 #### [facility] [address] [place], [address] Globulin (S) [Mass/Vol] 3.9 g/dL Normal 2.2-4.2 [facility] Comment on above: Performed By: #### L 500.4050 #### [facility] [address] [place], [address] Glucose [Mass/Vol] 133 mg/dL High 74-106 [facility] Comment on above: Result Comment: Fast ing Glucose result greater than or equal to 126 mg/dL suggests DIABETES MELLITUS per A.D.A. criteria. Performed By: #### L 500.4050 #### [facility] [address] [place], [address] Potassium [Moles/Vol] 4.2 mmol/L Normal 3.5-5.1 [facility] Comment on above: Performed By: #### L 500.4050 #### [facility] [address] [place], [address] Sodium [Moles/Vol] 142 mmol/L Normal 136-145 [facility] Comment on above: Performed By: #### L 500.4050 #### [facility] [address] [place], [address] T PROT 7.6 g/dL Normal 6.4-8.2 [facility] Comment on above: Performed By: #### L 500.4050 #### [facility] [address] [place], [place], [address] Urea nitrogen [Mass/Vol] 25 mg/dL High 7-18 [facility] Comment on above: Performed By: #### L 500.4050 #### [facility] [address] [place], [place], [address] Internal Medicine Office Vis iton 04-28-2024 Internal Medicine Office Visit [facility] [address] [address] OFFICE VISIT Date of Service: 04/28/24 MR#: [id number] Acct: [id number] Name: JOE MOLINA Rep #: [id number] : 1960 Provider: ARGENIS Carbajal Age/Sex: 63/M Location: [facility] Status: Signed Intake Vital Signs 02/23/24 09:06 02/25/24 10:47 04/28/24 10:20 Height 6 ft 6 ft 6 ft Weight: 247 lb 254 lb 254 lb BMI 33.5 34.4 34.4 BP 132/70 H 120/70 120/60 Blood Pressure Location Rt brachial Lt brachial Lt brachial Position Sitting Sitting Sitting Respiration 18 16 16 Pulse 45 L 54 L 49 L Pulse Source Monitor Monitor Monitor Temp 96.8 F L 97.9 F 97.7 F L Temp Source Temporal Temporal Temporal Pulse Oximetry (%) 98 97 98 Oxygen Delivery Method room air room air room air Intake Visit Reasons: 2 M FU Chief Complaint: 2m f/u Seismic Observer Required: No Accompanied by: Self Is patient in pain?: No Allergies Sulfa (Sulfonamide Antibiotics) Allergy (Verified 04/28/24 10:16) Unknown amlodipine Adverse Reaction (Mild, Verified 04/28/24 10:16) dizzy liraglutide (From Victoza) Adverse Reaction (Verified 04/28/24 10:16) Vomiting Medications ???Medication ???Instructions ???Recorded ???Confirmed ???Type arm brace #1 ea 09/22/23 04/28/24 Rx aspirin 81 mg tablet,delayed 81 mg PO DAILY 09/22/23 04/28/24 History release insulin aspart U-100 100 unit/mL 12 - 20 unit (0.12 - 0.2 mL) 09/22/23 04/28/24 Rx (3 mL) subcutaneous pen (Novolog subcut TID #15 mL FlexPen U-100 Insulin aspart) insulin degludec 100 unit/mL (3 50 unit (0.5 mL) subcut DAILY #15 09/22/23 04/28/24 Rx mL) subcutaneous pen (Tresiba mL FlexTouch U-100 insulin) blood-glucose meter,continuous #1 ea 09/23/23 04/28/24 Rx (Dexcom G7 Impregnator And Drier) blood-glucose sensor (Dexcom G7 #3 ea 10/30/23 04/28/24 Rx Sensor device) azelastine 0.05 % eye drops 1 drp ophthalmic (eye) BID #6 mL 01/26/24 04/28/24 Rx semaglutide 3 mg tablet (Rybelsus) 3 mg PO DAILY 30 days #30 tabs 04/06/24 04/28/24 Rx PFSH Medical History (Updated 04/28/24 @ 16:25 by Atif MORE, PA) Bradycardia Vision problems Diabetes ADHD Hepatitis A Osteomyelitis PVD (peripheral vascular disease) Surgical History Cataract extraction status H/O vasectomy Amputation toe Amputation of left lower extremity below knee Family History Grandmother Diabetes Social History household members: none housing: house current occupational status: 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 Patient dose have a continuous glucose monitor and thus checks this regularly. He states that his 90 day average was 7.5 and his 30 day was 7.3. He states that he just started the Rybelsus about 3 weeks ago after having some side effects on the IM GLP-1 analogs. He states that he has not had any side effects with the Rybelsus Patient states that he saw the eye doctor last week for check-up and was told that everything looks good. He had swelling previously and would receive injections but the new doctor said that there was no swelling and did not need anything other some refresh eye drops for some lubrication. He does see podiatry every 3 months for feet checks (has had amputations) ROS Const Constitutional: No body ache, chills, excessive sweating, fatigue, fever(s), frequent falls, headache(s), snoring, weakness or change in appetite Eyes Eyes: No blurry vision, change in vision, eye pain or Light sensitivity ENT ENT: No abnormal hearing, ear or mastoid pain, tinnitus, nasal congestion, headache(s), neck pain or sore throat Resp Respiratory: No cough, shortness of breath, snoring or wheezing Cardio Cardiology: No chest pain at rest, chest pain with exertion, excessive sweating, dyspnea on exertion, lightheadedness, orthopnea or palpitations Gastro GI: No abdominal pain, change in bowel habits, constipation, cramping, diarrhea, nausea/dyspepsia or vomiting Genitourinary Male: No burning urination, painful urination, urinary incontinence or urinary frequency Musc Musculoskeletal: No abnormal gait, joint pain, back pain, limited range of motion, muscle weakness, neck pain or numbness Skin Skin: No dry skin, redness, lesions, itchy eyes, ra (more content not included)... 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)(HIST) INTMWS During your visit today, we recorded the following information about you:Allergies As of Date: 05/22/2017 Noted Allergy ReactionSULFA (SULFONAMIDE ANTIBIOTICS) 01/25/2015 2 - Rash 8 - GI UpsetVICTOZA (LIRAGLUTIDE) 09/04/2015 11 - Vomiting Comments: And nauseaDate Reviewed: 04/11/2016Reviewed by: Shreya Yuen Ma - Fully AssessedReason for Visit: Refill Request [94]Prescriptions as of 05/22/2017 Sig: LISINOPRIL 5 MG TABLET Take 1 tablet by mouth once d* LISINOPRIL 5 MG TABLET Take 1 tablet by mouth once d* METFORMIN 500 MG TABLET Take 2 tablets by mouth twice* RIVAROXABAN 20 MG TABLET Take 1 tablet by mouth daily * ATORVASTATIN 20 MG TABLET Take 1 tablet by mouth once d* INSULIN GLARGINE 100 UNIT/ML * Inject 20 Units subcutaneousl* INSULIN LISPRO 100 UNIT/ML CULP* Take 5 units breakfast, 6 uni* BUPROPION HCL 100 MG TABLET Take 1 tablet by mouth three * PEN NEEDLE, DIABETIC 32 GAUGE* Use one needle for each dose.* SILDENAFIL 100 MG TABLET Take 0.5 tablets by mouth as * BLOOD-GLUCOSE METER Dispense One Kit - Verio Mete* * ECOTRIN LOW STRENGTH 81 MG TA* Take one(1) tablet daily.Problem List As Of Date 05/22/2017 Noted Resolved Type II or unspecified type diabetes mellitus w* 01/25/2013 More... HTN, goal below 140/90 [I10] INVALID FOR* Hyperlipidemia [E78.5] INVALID FOR* More... BMI 28.0-28.9,adult [Z68.28] More... BACKGRND RETINOPATHY NOS [H35.00] INVALID FOR* More... More... UMBILICAL HERNIA [K42.9] INVALID FOR* More... Unspecified sleep apnea [G47.30] INVALID FOR*06/21/2015 More... DM (diabetes mellitus) with peripheral vascular*INVALID FOR*03/13/2011 More... Subcutaneous nodules [R22.9] INVALID FOR* Trigger ring finger of left hand [M65.342] INVALID FOR*06/21/2015 Trigger ring finger of right hand [M65.341] INVALID FOR*06/21/2015 Depression [F32.9] INVALID FOR*06/21/2015 Sleep difficulties [G47.9] INVALID FOR*06/21/2015 Marital conflict [Z63.0] INVALID FOR*06/21/2015 DM (diabetes mellitus) with peripheral vascular*INVALID FOR* More... History of amputation of lower extremity (HCC) *INVALID FOR*03/04/2016 History of amputation of lesser toe of right fo*INVALID FOR* Mobitz (type) I (Wenckebach's) atrioventricular* More... Uncontrolled type 2 diabetes with neuropathy (H*INVALID FOR* PAD (peripheral artery disease) (HCC) [I73.9] INVALID FOR* Small vessel disease (HCC) [I99.9] INVALID FOR* Adjustment disorder with mixed anxiety and depr*INVALID FOR* Chronic ulcer of right leg, limited to breakdow*INVALID FOR* More... DM (diabetes mellitus), type 2, uncontrolled, p*INVALID FOR* Paroxysmal atrial fibrillation (HCC) [I48.0] INVALID FOR* Status:Closed by ERLINDA KILGORE LPN on 05/22/17 [facility] OBSOLETEon 03-31-2017 OBSOLETE Refill (INTMWS) JOE COUCH ([id number]) 1960 MDate Time Provider Department03/31/17 ELSA MOORE ([employer]ER)(HIST) INTMWS During your visit today, we recorded the following information about you:Ashley Sousa Pharm-T 04/01/2017 9:35 AM SignedLast visit with PCP greater than 18 months ago. Under current agreementpharmacy cannot authorize. Please assess the appropriateness of this refillrequest.BOOGIE: 03/22/2015NOV: Visit date not foundSchedulers - Please reach out to patient to schedule a PCP visit.Thank you.Pharmacist Refill Authorization ReviewName: Joe Jo TracyN: [id number]: 04/01/2017Time: 9:35 AMRefill authorization request(s) received via pharmacy request and reviewedunder effective consult agreement. Upon review, did confirm that an activepatient-provider relationship exists and that the prescriber is a participatingphysician under the consult agreement.The medication(s) fall under the following categories:Category 3: 1 corresponding medication(s) does not qualify for renewal due tothe last visit with prescribing physician being greater than 18 months ago.Additional actions taken: Contacted prescriber to discuss.Ashley Sousa Pharm-TPharmacy Managed Authorization CenterPhone Current Outpatient Prescriptions:lisinopri l (ZESTRIL, PRINIVIL) 5 mg tablet Take 1 tablet by mouth once daily.lisinopril (ZESTRIL, PRINIVIL) 5 mg tablet Take 1 tablet by mouth once daily.metFORMIN (GLUCOPHAGE) 500 mg tablet Take 2 tablets by mouth twice daily withmeals.rivaroxaban (XARELTO) 20 mg tablet Take 1 tablet by mouth daily with dinner.atorvastatin (LIPITOR) 20 mg tablet Take 1 tablet by mouth once daily.insulin glargine (LANTUS SOLOSTAR) 100 unit/mL (3 mL) inpn Inject 20 Unitssubcutaneously daily at bedtime.Insulin Lispro, Human, (HUMALOG KWIKPEN) 100 unit/mL inpn Take 5 unitsbreakfast, 6 unit lunch, and 5 units dinner. Dx E11.40buPROPion (WELLBUTRIN) 100 mg tablet Take 1 tablet by mouth three times daily.For the first 3 days, begin with twice daily, then increase to three timesdailyInsulin [place], Disposable, (OLIVA PEN NEEDLE) 32 gauge x 5/32ANDquot; ndle Useone needle for each dose. 4x/day.sildenafil (VIAGRA) 100 mg tablet Take 0.5 tablets by mouth as needed. Take 30to 60min before sexual activityBlood-Glucose Meter (ONETOUCH VERIO SYSTEM) misc Dispense One Kit - Verio MeterKitaspirin(ECOTRIN LOW STRENGTH 81 MG TAB) Take one(1) tablet daily.No current facility-administered medications for this visit.Tano Flores Psr 04/01/2017 10:19 AM SignedPatient currently lives in [place]. He still [place] the [place] [facility] [place] [facility]. Patient states that the pharmacy was to refill thiswith his new PCP in [place] not through [place]. He apologizes for themisunderstanding.Fauzia Plaza MD 04/01/2017 8:35 PM SignedNoted patient has moved.Make sure name no longer on my DM listAllergies As of Date: 03/31/2017 Noted Allergy ReactionSULFA (SULFONAMIDE ANTIBIOTICS) 01/25/2015 2 - Rash 8 - GI UpsetVICTOZA (LIRAGLUTIDE) 09/04/2015 11 - Vomiting Comments: And nauseaDate Reviewed: 04/11/2016Reviewed by: Shreya Yuen Ma - Fully AssessedReason for Visit: Refill Request [94]Prescriptions as of 03/31/2017 Sig: LISINOPRIL 5 MG TABLET Take 1 tablet by mouth once d* LISINOPRIL 5 MG TABLET Take 1 tablet by mouth once d* METFORMIN 500 MG TABLET Take 2 tablets by mouth twice* RIVAROXABAN 20 MG TABLET Take 1 tablet by mouth daily * ATORVASTATIN 20 MG TABLET Take 1 tablet by mouth once d* INSULIN GLARGINE 100 UNIT/ML * Inject 20 Units subcutaneousl* INSULIN LISPRO 100 UNIT/ML CULP* Take 5 units breakfast, 6 uni* BUPROPION HCL 100 MG TABLET Take 1 tablet by mouth three * PEN NEEDLE, DIABETIC 32 GAUGE* Use one needle for each dose.* SILDENAFIL 100 MG TABLET Take 0.5 tablets by mouth as * BLOOD-GLUCOSE METER Dispense One Kit - Verio Mete* * ECOTRIN LOW STRENGTH 81 MG TA* Take one(1) tablet daily.Problem List As Of Date 03/31/2017 Noted Resolved Type II or unspecified type diabetes mellitus w* 01/25/2013 More... HTN, goal below 140/90 [I10] INVALID FOR* Hyperlipidemia [E78.5] INVALID FOR* More... BMI 28.0-28.9,adult [Z68.28] More... BACKGRND RETINOPATHY NOS [H35.00] INVALID FOR* More... More... UMBILICAL HERNIA [K42.9] INVALID FOR* More... Unspecified sleep apnea [G47.30] INVALID FOR*06/21/2015 More... DM (diabetes mellitus) with peripheral vascular*INVALID FOR*03/13/2011 More... Subcutaneous nodules [R22.9] INVALID FOR* Trigger ring finger of left hand [M65.342] INVALID FOR*06/21/2015 Trigger ring finger of right hand [M65.341] INVALID FOR*06/21/2015 Depression [F32.9] INVALID FOR*06/21/2015 Sleep difficulties [G47.9] INVALID FOR*06/21/2015 Marital conflict [Z63.0] INVALID FOR*06/21/2015 DM (diabetes mellitus) with peripheral vascular*INVALID FOR* More... History of amputation of lower extremity (HCC) *INVALID FOR*03/04/2016 History of amputation of lesser toe of right fo*INVALID FOR* Mobitz (type) I (Wenckebach's) atrioventricular* More... Uncontrolled type 2 diabetes with neuropathy (H*INVALID FOR* PAD (peripheral artery disease) (HCC) [I73.9] INVALID FOR* Small vessel disease (HCC) [I99.9] INVALID FOR* Adjustment disorder with mixed anxiety and depr*INVALID FOR* Chronic ulcer of right leg, limited to breakdow*INVALID FOR* More... DM (diabetes mellitus), type 2, uncontrolled, p*INVALID FOR* Paroxysmal atrial fibrillation (HCC) [I48.0] INVALID FOR* Status:Closed by ZOLTAN PLAZA MD on 04/01/17 Normal [facility] Vital Signs Date Time Vital Sign Value Performing Clinician Faci lity 04-25-2025 13:41-0400 Body temperature 98.2 [degF] Dr. Niurka Simons MD Work Phone: [facility] 04-25-2025 13:41-0400 Diastolic blood pressure 89 mm[Hg] Dr. Niurka Simons MD Work Phone: [facility] 04-25-2025 13:41-0400 Heart rate 62 /min Dr. Niurka Simons MD Work Phone: [facility] 04-25-2025 13:41-0400 Respiratory rate 18 /min Dr. Niurka Simons MD Work Phone: [facility] 04-25-2025 13:41-0400 SaO2% (BldA) [Mass fraction] 98 % Dr. Niurka Simons MD Work Phone: [facility] 04-25-2025 13:41-0400 Systolic blood pressure 128 mm[Hg] Dr. Niurka Simons MD Work Phone: [facility] 04-25-2025 10:32-0400 Body height 182.[address] Niurka Simons MD Work Phone: [facility] 04-25-2025 10:32-0400 Body mass index (BMI) [Ratio] 35.5 kg/m2 Dr. Niurka Simons MD Work Phone: [facility] 04-25-2025 10:32-0400 Body weight 118.[address] Niurka Simons MD Work Phone: [facility] 02-24-2025 12:31-0400 Body height 182.[address] Niurka Simons MD Work Phone: [facility] 02-24-2025 12:31-0400 Body mass index (BMI) [Ratio] 33.5 kg/m2 Dr. Niurka Simons MD Work Phone: [facility] 02-24-2025 12:31-0400 Body temperature 98.6 [degF] Dr. Niurka Simons MD Work Phone: [facility] 02-24-2025 12:31-0400 Body weight 112.[address] Niurka Simons MD Work Phone: [facility] 02-24-2025 12:31-0400 Diastolic blood pressure 80 mm[Hg] Dr. Niurka Simons MD Work Phone: [facility] 02-24-2025 12:31-0400 Heart rate 67 /min Dr. Niurka Simons MD Work Phone: [facility] 02-24-2025 12:31-0400 Respiratory rate 16 /min Dr. Niurka Simons MD Work Phone: [facility] 02-24-2025 12:31-0400 SaO2% (BldA) [Mass fraction] 99 % Dr. Niurka Simons MD Work Phone: [facility] 02-24-2025 12:31-0400 Systolic blood pressure 122 mm[Hg] Dr. Niurka Simons MD Work Phone: [facility] 02-15-2025 13:55-0400 Body height 182.[address] Niurka Simons MD Work Phone: [facility] 02-15-2025 13:55-0400 Body mass index (BMI) [Ratio] 34.2 kg/m2 Dr. Niurka Simons MD Work Phone: [facility] 02-15-2025 13:55-0400 Body temperature 97.6 [degF] Dr. Niurka Simons MD Work Phone: [facility] 02-15-2025 13:55-0400 Body weight 114.[address] Niurka Simons MD Work Phone: [facility] 02-15-2025 13:55-0400 Diastolic blood pressure 80 mm[Hg] Dr. Niurka Simons MD Work Phone: [facility] 02-15-2025 13:55-0400 Heart rate 75 /min Dr. Niurka Simons MD Work Phone: [facility] 02-15-2025 13:55-0400 Respiratory rate 16 /min Dr. Niurka Simons MD Work Phone: [facility] 02-15-2025 13:55-0400 SaO2% (BldA) [Mass fraction] 99 % Dr. Niurka Simons MD Work Phone: [facility] 02-15-2025 13:55-0400 Systolic blood pressure 126 mm[Hg] Dr. Niurka Simons MD Work Phone: [facility] 01-27-2025 10:45-0400 Body height 182.[address] Niurka Simons MD Work Phone: [facility] 01-27-2025 10:45-0400 Body mass index (BMI) [Ratio] 34.8 kg/m2 Dr. Niurka Simons MD Work Phone: [facility] 01-27-2025 10:45-0400 Body temperature 97.3 [degF] Dr. Niurka Simons MD Work Phone: [facility] 01-27-2025 10:45-0400 Body weight 116.[address] Niurka Simons MD Work Phone: [facility] 01-27-2025 10:45-0400 Diastolic blood pressure 76 mm[Hg] Dr. Niurka Simons MD Work Phone: [facility] 01-27-2025 10:45-0400 Heart rate 45 /min Dr. Niurka Simons MD Work Phone: [facility] 01-27-2025 10:45-0400 Respiratory rate 16 /min Dr. Niurka Simons MD Work Phone: [facility] 01-27-2025 10:45-0400 SaO2% (BldA) [Mass fraction] 99 % Dr. Niurka Simons MD Work Phone: [facility] 01-27-2025 10:45-0400 Systolic blood pressure 124 mm[Hg] Dr. Niurka Simons MD Work Phone: [facility] 11-25-2024 17:18-0400 Body height 182.[address] Niurka Simons MD Work Phone: [facility] 11-25-2024 17:18-0400 Body mass index (BMI) [Ratio] 35.2 kg/m2 Dr. Niurka Simons MD Work Phone: [facility] 11-25-2024 17:18-0400 Body temperature 98.7 [degF] Dr. Niurka Simons MD Work Phone: [facility] 11-25-2024 17:18-0400 Body weight 117.[address] Niurka Simons MD Work Phone: [facility] 11-25-2024 17:18-0400 Diastolic blood pressure 60 mm[Hg] Dr. Niurka Simons MD Work Phone: [facility] 11-25-2024 17:18-0400 Heart rate 49 /min Dr. Niurka Simons MD Work Phone: [facility] 11-25-2024 17:18-0400 SaO2% (BldA) [Mass fraction] 99 % Dr. Niurka Simons MD Work Phone: [facility] 11-25-2024 17:18-0400 Systolic blood pressure 110 mm[Hg] Dr. Niurka Simons MD Work Phone: [facility] 10-28-2024 10:10-0400 Body height 182.[address] Niurka Simons MD Work Phone: [facility] 10-28-2024 10:10-0400 Body mass index (BMI) [Ratio] 34.3 kg/m2 Dr. Niurka Simons MD Work Phone: [facility] 10-28-2024 10:10-0400 Body temperature 97.8 [degF] Dr. Niurka Simons MD Work Phone: [facility] 10-28-2024 10:10-0400 Body weight 114.[address] Niurka Simons MD Work Phone: [facility] 10-28-2024 10:10-0400 Diastolic blood pressure 78 mm[Hg] Dr. Niurka Simons MD Work Phone: [facility] 10-28-2024 10:10-0400 Heart rate 42 /min Dr. Niurka Simons MD Work Phone: [facility] 10-28-2024 10:10-0400 Respiratory rate 16 /min Dr. Niurka Simons MD Work Phone: [facility] 10-28-2024 10:10-0400 SaO2% (BldA) [Mass fraction] 98 % Dr. Niurka Simons MD Work Phone: [facility] 10-28-2024 10:10-0400 Systolic blood pressure 130 mm[Hg] Dr. Niurka Simons MD Work Phone: [facility] 10-16-2023 13:40-0500 Body mass index (BMI) [Ratio] 32.5 kg/m2 No Primary Care Physician [facility] 10-02-2023 13:00-0500 Body temperature 96.9 [degF] No Primary Care Physician [facility] 10-02-2023 13:00-0500 Respiratory rate 16 /min No Primary Care Physician [facility] 09-22-2023 09:08-0500 Body height 182.88 cm No Primary Care Physician [facility] 09-22-2023 09:08-0500 Body mass index (BMI) [Ratio] 33.6 kg/m2 No Primary Care Physician [facility] 09-22-2023 09:08-0500 Body temperature 97.7 [degF] No Primary Care Physician [facility] 09-22-2023 09:08-0500 Body weight 112.49 kg No Primary Care Physician [facility] 09-22-2023 09:08-0500 Diastolic blood pressure 82 mm[Hg] No Primary Care Physician [facility] 09-22-2023 09:08-0500 Heart rate 49 /min No Primary Care Physician [facility] 09-22-2023 09:08-0500 Respiratory rate 16 /min No Primary Care Physician [facility] 09-22-2023 09:08-0500 SaO2% (BldA) [Mass fraction] 99 % No Primary Care Physician [facility] 09-22-2023 09:08-0500 Systolic blood pressure 120 mm[Hg] No Primary Care Physician [facility] 09-18-2023 12:57-0500 Diastolic blood pressure 63 mm[Hg] No Primary Care Physician [facility] 09-18-2023 12:57-0500 Heart rate 41 /min No Primary Care Physician [facility] 09-18-2023 12:57-0500 Systolic blood pressure 140 mm[Hg] No Primary Care Physician [facility] 09-18-2023 00:39-0500 Body weight 108.91 kg No Primary Care Physician [facility] 09-11-2023 13:02-0500 Body mass index (BMI) [Ratio] 32.5 kg/m2 No Primary Care Physician [facility] 09-11-2023 13:02-0500 Body temperature 97.7 [degF] No Primary Care Physician [facility] 09-11-2023 13:02-0500 Diastolic blood pressure 54 mm[Hg] No Primary Care Physician [facility] 09-11-2023 13:02-0500 Heart rate 39 /min No Primary Care Physician [facility] 09-11-2023 13:02-0500 Respiratory rate 20 /min No Primary Care Physician [facility] 09-11-2023 13:02-0500 Systolic blood pressure 144 mm[Hg] No Primary Care Physician [facility] 08-21-2023 13:12-0500 Body height 182.88 cm No Primary Care Physician [facility] 08-21-2023 13:12-0500 Body weight 108.91 kg No Primary Care Physician [facility] Encounters Encounter Date Encounter Type Care Provider Facility Start: 04-25-2025 End: 04-25-2025 Emergency department patient visit Dr. Niurka Simons MD Work Phone: -Emergency Department Work Phone: Start: 03-16-2025 End: 03-16-[address] Niurka Simons MD Work Phone: -[facility] Start: 03-16-2025 End: 03-16-[address] Niurka Simons MD -[facility] Start: 03-16-2025 End: 03-16-2025 ambulatory Niurka Simons Facility:[facility] Start: 02-24-2025 End: 02-24-2025 Patient encounter procedure Atif [facility] -[facility] Work Phone: Start: 02-24-2025 End: 02-24-[address] Niurka Simons MD Work Phone: -[facility] Start: 02-15-2025 End: 02-15-2025 Patient encounter procedure Atif MORE -[facility] Work Phone: Start: 02-15-2025 End: 02-15-[address] Niurka Simons MD Work Phone: -[facility] Start: 02-08-2025 ambulatory Niurka Simons Facility :[facility] Start: 01-27-2025 End: 01-27-[address] Niurka Simons MD -[facility] Work Phone: Start: 01-27-2025 End: 01-27-[address] Niurka Simons MD Work Phone: [facility] Work Phone: Start: 11-25-2024 End: 11-25-2024 Patient encounter procedure Porter MORE -[facility] Work Phone: Start: 11-25-2024 End: 11-25-2024 ambulatory Niurka Simons Facility:[facility] Start: 11-24-2024 ambulatory Niurka Simons Facility :[facility] Start: 11-24-2024 Non-patient / Non-visit Dr. Rowan ngo MD -[facility] Start: 11-24-2024 End: 11-24-[address] Niurka Simons MD Work Phone: [facility] Work Phone: Start: 11-24-2024 End: 11-24-[address] Niurka Simons MD -Pulmonary Services/Neurology Work Phone: Start: 11-24-2024 End: 11-24-2024 ambulatory Niurka Simons Facility:[facility] Start: 11-18-2024 End: 11-18-[address] Niurka Simons MD Work Phone: [facility] Work Phone: Start: 11-18-2024 End: 11-18-[address] Niurka Simons MD -Sleep Lab Work Phone: Start: 11-18-2024 End: 11-18-2024 ambulatory Niurka Simons Facility:[facility] Start: 10-28-2024 End: 10-28-[address] Niukra Simons MD Work Phone: [facility] Work Phone: Start: 10-28-2024 End: 10-28-[address] Niurka Simons MD -Radiology, [facility] Work Phone: Start: 10-28-2024 End: 10-28-[address] Niurka Simons MD -[facility] Work Phone: Start: 10-28-2024 End: 10-28-2024 ambulatory Niurka Simons Facility:[facility] Start: 10-28-2024 End: 10-28-2024 ambulatory Niurka Simons Facility:[facility] Start: 04-28-2024 End: 04-28-2024 ambulatory Atif MORE Facility:[facility] Start: 04-28-2024 End: 04-28-2024 ambulatory Atif MORE Facility:[facility] Start: 10-16-2023 End: 10-16-2023 ambulatory No Primary Care Physician [facility] Work Phone: Start: 10-16-2023 End: 10-16-2023 Discharged Recurring No [facility] Work Phone: Start: 10-03-2023 Non-patient / Non-visit No [facility] Physician [facility] Start: 09-26-2023 Non-patient / Non-visit No [facility] Physician [facility] Start: 09-22-2023 End: 09-22-2023 Patient encounter procedure No Primary Care Physician [facility] Work Phone: Start: 09-19-2023 Non-patient / Non-visit No Roseline patten [facility] Physician [facility] W[facility]ord[facility] Start: 09-12-2023 Non-patient / Non-visit No [facility] Physician [facility] Vobhffwt-WNS-FJD Start: 09-11-2023 End: 09-17-2023 ambulatory No Primary Care Physician [facility] Work Phone: Start: 09-11-2023 End: 09-17-2023 Discharged Recurring No [facility] [place] Work Phone: Start: 09-04-2023 Non-patient / Non-visit No [facility] Physician [facility] Snvjqtia-XPE-XVP Start: 08-29-2023 Non-patient / Non-visit No [facility] Physician [facility] Ppihmzir-OJF-VDI Start: 08-22-2023 Non-patient / Non-visit No [facility] Physician [facility] Equnvisq-FFO-QOU Procedures Date Procedure Procedure Detail Performing Clinician Start: 04-25-2025 SARS-CoV-2, Influenz a & RSV (PCR) Dr. Niurka Simons MD Work Phone: Start: 04-25-2025 X-ray of chest, PA a nd lateral views Dr. Niurka Simons MD Work Phone: Start: 04-25-[address] Niurka Simons MD Work Phone: Start: 03-16-2025 Urine microalbumin/creatinine ratio measurement Dr. Niurka Simons MD Work Phone: Start: 03-16-[address] Arcadio Simons MD Work Phone: Comment on above: Performed at: [facility] [address] [id number] Director: Anibal Arrington PhD, Phone: [phone] Start: 03-16-[address] Nikolas Simons MD Work Phone: Comment on above: The atypical pANCA p attern has been observed in asignificant percentage of patients with ulcerative colitis,primary sclerosing cholangitis and autoimmune hepatitis.Performed at: [facility] [address] [id number] Director: Anibal Arrington PhD, Phone: [phone] Start: 03-16-2025 Antibody to centrome re measurement Dr. Niurka Simons MD Work Phone: Comment on above: Test not performed Start: 03-16-2025 Antibody to extracta ble nuclear antigen measurement Dr. Niurka Simons MD Work Phone: Comment on above: Test not performed Start: 03-16-2025 Antibody to RAJEEV-[address] Niurka Simons MD Work Phone: Comment on above: Test not performed Start: 03-16-2025 Antibody to lupus La protein measurement Dr. Niurka Simons MD Work Phone: Comment on above: Test not performed Start: 03-16-2025 Antibody to SS-A measurement Dr. Niurka Simons MD Work Phone: Comment on above: Test not performed Start: 03-16-[address] Niurka Simons MD Work Phone: Comment on above: Test not performed Start: 03-16-2025 SOFTWARE PROGRAMMER antibody measurement Dr. Niurka Simons MD Work Phone: Comment on above: Test not performed Start: 10-28-2024 Plain x-ray of hand Dr. Niurka Simons MD Work Phone: Plan of Treatment Date Care Activity Detail Author Start: 04-25-2025 End: 04-25-2025 [facility] Start: 04-25-2025 [facility] Start: 03-16-2025 Cytoplasmic ANCA Screen [facility] Start: 11-18-2024 Polysomnography [facility] Start: 09-22-2023 Patient referral [facility] Work Phone: Antibody to lupus La protein measurement [facility] Antibody to SS-A measurement [facility] C reactive protein [Mass/volume] in Serum or Plasma [facility] CBC W Auto Different ial panel - Blood [facility] Comprehensive metabo lic 1999 panel - Serum or Plasma [facility] Cytoplasmic ANCA Screen [facility] DNA double strand Ab [Units/volume] in Serum [facility] Lipid 1996 panel - S nolvia or Plasma [facility] Patient Education ED Dyspnea ED Pneumonia (Adult) [facility] Work Phone: Patient referral [facility] Work Phone: Urine microalbumin/creatinine ratio measurement [facility] Immunizations Immunization Date Immunization Notes Care Provider Fa cility 06-21-2015 influenza, injectabl e, quadrivalent, preservative free No Primary Care Physician [facility] 04-16-2015 rabies vaccine, for intramuscular injection No Primary Care Physician [facility] 04-05-2015 rabies vaccine, for intramuscular injection No Primary Care Physician [facility] 04-03-2015 rabies immune globulin No Pr imary Care Physician [facility] 04-03-2015 rabies vaccine, for intramuscular injection No Primary Care Physician [facility] Payers Date Payer Category Payer Self-pay 2024 Unknown [id number] 2013 Unknown [id number] Unknown [id number] 2.16.8 [id number] Unknown [id number] 2.16.8 [id number] Unknown [id number] 2.16.8 [id number] Unknown [id number] 2.16.8 [id number] Unknown [id number] 2.16.8 [id number] Unknown [id number] 2.16.8 [id number] Unknown [id number] 2.16.8 [id number] Unknown [id number] 2.16.8 [id number] Unknown [id number] 2.16.8 [id number] Unknown [id number] 2.16.8 [id number] Unknown [id number] 2.16.8 [id number] Unknown [id number] 2.16.8 [id number] Unknown [id number] 2.16.8 [id number] Social History Date Type Detail Facility Start: 08-20-2023 End: 09-22-2023 Tobacco smoking status AKIS Unknown if ever smoked [facility] Start: 02-23-2016 None [facility] Start: 02-23-2016 Spouse/ Signif icant Other [facility] Start: 10-06-2016 Non-smoker [facility] Start: 1960 Sex Assigned At Male [facility] Start: 09-22-2023 End: 04-25-2025 Tobacco smoking status NHIS Never smoked tobacco (finding) [facility] Start: 11-07-2024 End: 11-29-2024 Sex Male (finding) [facility] Clinical Notes 08-22-2023 to 04-25-2025 Note Date & Type Note Facility 04-25-2025 Discharge summary [facility] 04-25-2025 Radiology Diagnostic study note [facility] Imaging Services [address] [place] [address] Chest PA and Lateral MR#: [id number] Acct: [id number] Name: JOE MOLINA Rep #: [id number] : 1960 M 64 From: Morales Gamble MD PCP: Dr. Niurka Simons MD Status: REG ER Study:Chest PA and Lateral Date of Exam: 04/25/25 Exam# [id number] Ordering Dr: Joel Richardson MD PROCEDURE: CHEST PA AND LATERAL 04/25/2025 REASON FOR EXAM: SHORTNESS OF BREATH TECHNIQUE: Procedure Code: RADCXR Modality: DX Procedure: CHEST PA AND LATERAL COMPARISON: None FINDINGS: There is patchy airspace disease in the right upper lobe. Remainder of the lungremains clear. The heart and mediastinum is normal. Hilar structures are intact. There is no pleural effusion or pneumothorax. Osseous structures are within normal limits with multilevel disc disease present through the spine. RAD/Chest PA and Lateral IMPRESSION: Patchy nodular opacity in the right upper lobe. Findings could reflect pneumonia in the correct clinical setting. Follow-up to document complete resolution is recommended. Reading Location: [id number] CC: Dr. Joel Richardson MD; Dr. Niurka Simons MD ~ Staff Editor: Signed [facility] 01-27-2025 Evaluation note Diagnosis Onset Date Resolution Controlled type 2 diabetes mellitus acute January 27 10:34am Essential hypertension acute Ju ne 2024 10:34am Immunization declined noneactive Geremias e 2024 10:34am ONEIL (obstructive sleep apnea) noneactive January 27, 2025 10:34am Bradycardia noneactive January 27 10:34am Seasonal allergies noneactive January 162024 10:34am Obesity (BMI 30.0-34.9) noneactive J une 2024 10:34am Right hand weakness noneactive January 27, 2025 10:34am Seborrheic dermatitis acute Feb 1:44pm Vasculitis acute February 15, 2025 1:44pm Vasculitis acute February 24 12:07pm [facility] Work Phone: 1(671) 429-635104-10-2025 Evaluation note* Diagnosis Onset Date Resolution Status Admit Date Infected blister of left leg acute November 25, 2024 5:11pm Controlled type 2 diabetes mellitus acute January 27, 2025 10:34am Essential hypertension acute 2024 10:34am Immunization declined noneactive Jan 10:34am ONEIL (obstructive sleep apnea) noneac tive January 27, 2025 10:34am Bradycardia noneactive January 27 10:34am Seasonal allergies noneactive January 162024 10:34am Obesity (BMI 30.0-34.9) noneactive J une 2024 10:34am Right hand weakness noneactive January 27, 2025 10:34am Seborrheic dermatitis acute Feb 1:44pm Vasculitis acute February 15, 2025 1:44pm Vasculitis acute February 24 12:07pm [facility] Work Phone: 1(662) 660-106904-09-2025 Procedure note [facility] Pulmonary Services/Neurology [address] [place] [address] MR#: [id number] Acct: [id number] Name: JOE MOLINA Rep #:[id number] : 1960 64 From: Rowan Mulligan MD Referring Dr: Niurka Simons MD Sta tus: REG CLI Location: [facility] Date: 11/24/24 Sex: M C NCS and/or EMG Patient Report Ordering Doctor: Niurka Simons DATE OF SERVICE: 11/24/24 Joe presents with complaints of numbness and tingling and weakness in the right hand. He has a long history of diabetes. Electrodiagnostic findings: Right median motor response could not be obtained. Right ulnar motor nerve demonstrates prolonged latency with reduced amplitude and a 40% drop in conduction across the elbow. Sensory responses were not obtainable. Needle EMG testing was performed in the right upper limb. 1+ fibrillations noted in the first dorsal interosseous. Electrodiagnostic impression: This is an abnormal study of the right upper limb. 1. Electrodiagnostic findings are suggestive of right sided median neuropathy. As a response could not be obtained, it cannot be definitively stated that he has carpal tunnel syndrome. Would recommend correlation with two other limbs tobetter assess for peripheral polyneuropathy. 2. Electrodiagnostic evidence is noted for right ulnar neuropathy. There is evidence of axonal lossand there is evidence of conduction block across the elbow, consistent with a cubital tunnel syndrome. 3. There is no electrodiagnostic evidence for cervical radiculopathy or brachial plexopathy. Multi Select Codes Neurology Neurology Interp Codes: 18889-21 Musc test done w/n test comp (interp) and 71372-66 Nrv cndj test 7-8 studies (interp) 11/24/24 1203 D> Date _ Rowan Mulligan MD CC: Dr. Niurka Simons MD; Dr. Rowan Mulligan MD ~ Date Dictated: 11/24/24 1158 Date Transcribed: 11/24/241157 Staff Editor: AA Signed [facility]03-13-2025 Radiology Diagnostic study note [facility] Imaging Services [address] [place], [place] [id number] Hand Min 3 Views MR#: [id number] Acct: [id number] Name: JOE MOLINA Rep #: [id number] : 1960 M 64 From: Arti Rome MD PCP: Dr. Niurka Simons MD Status: REG CLI Study:Hand Min 3 Views Date of Exam: Exam# [id number] Ordering Dr: Niurka Simons MD EXAM: XR Right Hand Complete, 3 or More Views CLINICAL INDICATION: HAND PAIN, ARTHRITIS TECHNIQUE: Frontal, lateral and oblique views of the right hand. COMPARISON: No relevant prior studies available. FINDINGS: BONES/JOINTS: Unremarkable. No acute fracture. No dislocation. No significant degenerative changes. SOFT TISSUES: Unremarkable. No radiopaque foreign body. RAD/Hand Min 3 Views IMPRESSION: Unremarkable exam. Reading Location: [facility]- CC: Dr. Niurka Simons MD ~ Staff Editor: Signed [facility]03-13-2025 Evaluation note* Diagnosis Onset Date Resolution Status Admit Date Controlled type 2 diabetes mellitus acute October 28, 2024 10:03am Essential hypertension acute [facility] 2024 10:03am Immunization declined noneactive [facility] 2024 10:03am Screening for colon cancer noneactiv e October 28, 2024 10:03am Fatigue noneactive October 28 10:03am Bradycardia noneactive October 28 025 10:03am Nasal congestion noneactive October 282024 10:03am Obesity (BMI 30.0-34.9) noneactive [facility] 2024 10:03am Right hand weakness noneactive October 28, 2024 10:03am [facility] Work Phone: 1(379) 178-888903-13-2025 Evaluation note* Diagnosis Onset Date Resolution Status Admit Date Controlled type 2 diabetes mellitus acute October 28, 2024 10:03am Essential hypertension acute [facility] 2024 10:03am Immunization declined noneactive [facility] 2024 10:03am Screening for colon cancer noneactiv e October 28, 2024 10:03am Fatigue noneactive October 28 10:03am Bradycardia noneactive October 28 025 10:03am Nasal congestion noneactive October 282024 10:03am Obesity (BMI 30.0-34.9) noneactive [facility] 2024 10:03am Right hand weakness noneactive October 28, 2024 10:03am Infected blister of left leg acute November 25, 2024 5:11pm [facility] Work Phone: 1(665) 431-629403-13-2025 Evaluation note* Diagnosis Onset Date Resolution Status Admit Date Controlled type 2 diabetes mellitus acute October 28, 2024 10:03am Essential hypertension acute [facility] 2024 10:03am Immunization declined noneactive [facility] 2024 10:03am Screening for colon cancer noneactiv e October 28, 2024 10:03am Fatigue noneactive October 28 10:03am Bradycardia noneactive October 28 025 10:03am Nasal congestion noneactive October 282024 10:03am Obesity (BMI 30.0-34.9) noneactive [facility] 2024 10:03am Right hand weakness noneactive October 28, 2024 10:03am Infected blister of left leg acute November 25, 2024 5:11pm Controlled type 2 diabetes mellitus acute January 27, 2025 10:34am Essential hypertension acute [facility] 2024 10:34am ONEIL (obstructive sleep apnea) noneac tive January 27, 2025 10:34am Bradycardia noneactive January 27 10:34am Obesity (BMI 30.0-34.9) noneactive [facility] 2024 10:34am Right hand weakness noneactive January 27, 2025 10:34am [facility] [employer] Work Phone: 1(293) 753-603303-13-2025 Evaluation note* Diagnosis Onset Date Resolution Status Admit Date Controlled type 2 diabetes mellitus acute October 28, 2024 10:03am Essential hypertension acute [facility] 2024 10:03am Immunization declined noneactive [facility] 2024 10:03am Screening for colon cancer noneactiv e October 28, 2024 10:03am Fatigue noneactive October 28 10:03am Bradycardia noneactive October 28 025 10:03am Nasal congestion noneactive October 282024 10:03am Obesity (BMI 30.0-34.9) noneactive [facility] 2024 10:03am Right hand weakness noneactive October 28, 2024 10:03am Infected blister of left leg acute November 25, 2024 5:11pm Controlled type 2 diabetes mellitus acute January 27, 2025 10:34am Essential hypertension acute [facility] 2024 10:34am Immunization declined noneactive [facility] 2024 10:34am ONEIL (obstructive sleep apnea) noneac tive January 27, 2025 10:34am Bradycardia noneactive January 27 10:34am Seasonal allergies noneactive January 162024 10:34am Obesity (BMI 30.0-34.9) noneactive [facility] 2024 10:34am Right hand weakness noneactive January 27, 2025 10:34am [facility] Work Phone: 1(927) 216-800303-13-2025 Evaluation note* Diagnosis Onset Date Resolution Status Admit Date Controlled type 2 diabetes mellitus acute October 28, 2024 10:03am Essential hypertension acute [facility] 2024 10:03am Immunization declined noneactive Mar 2024 10:03am Screening for colon cancer noneactiv e October 28, 2024 10:03am Fatigue noneactive October 28 10:03am Bradycardia noneactive October 28 10:03am Nasal congestion noneactive October 282024 10:03am Obesity (BMI 30.0-34.9) noneactive [facility] 2024 10:03am Right hand weakness noneactive October 28, 2024 10:03am Infected blister of left leg acute November 25, 2024 5:11pm Controlled type 2 diabetes mellitus acute January 27, 2025 10:34am Essential hypertension acute [facility] 2024 10:34am Immunization declined noneactive [facility] 2024 10:34am ONEIL (obstructive sleep apnea) noneac tive January 27, 2025 10:34am Bradycardia noneactive January 27 10:34am Seasonal allergies noneactive January 162024 10:34am Obesity (BMI 30.0-34.9) noneactive [facility] 2024 10:34am Right hand weakness noneactive January 27, 2025 10:34am Seborrheic dermatitis acute Feb 1:44pm Vasculitis acute February 15, 2025 1:44pm [facility] Work Phone: 1(896) 743-814602-16-2024 Progress note Author Tamika Avitia [facility] October 03, 2023 11:44am Note Date/Time October 03, 2023 8:03am [facility] [address] [place] [address] Progress Note - Wound Care 10/03/23 0802 MR#: [id number] Acct: [id number] Name: JOE MOLINA Rep #:[id number] : 1960 63 From: Tamika MORE PCP: Care Physician,No Primary Status :REG RCR Location: History of Present Illness Date of Service: 10/02/23 Chief Complaint: Right Diabetic Foot Ulcer History of Wound: Mr. Joe Molina is a 63-year-old male who presents to the wound healing center today for evaluation and management of a right diabetic foot ulcer which seems to have formed after he began wearing regular shoes according to records received from prior wound center. This ulceration is on the right lateral foot. This wound has been ongoing for at least the last 2 months. He recently moved back to [place] from [place] where he had been for the past several years. He was receiving care for this ulceration at the wound care center there. He reports they were treating with Apligraf and PuraPly. Hereports the wound has been making positive progress over the last few weeks. Heis wearing a surgical shoe to keep pressure off of that area. He has been seen here at this wound center multiple times in the past for diabetic foot ulcers, last seen in 2015 before moving to [place]. 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 He had a left lower extremity angiogram with tibial intervention on 01/14/2023 to attempt to improve inflow for limb salvage efforts. Ultimately he did undergo the left BKA on 03/05/2023. Other than this recent angiogram he denies any prior vascular surgical interventions. He did have arterial studies in [place] on 06/17/2023 and the fax report shows a right TEDDY of 1.03 with stenosis of the right SFA. He has a history of poorly controlled diabetes but fortunately now has better control with report of his last A1c 6.8 in May. He did receive new shoe insert from podiatry in [place]. Subjective Subjective Patient reports feels the wound is healed today. He has not had any drainage orbleeding from this area. Objective Data Objective Data Vital Signs: Vital Signs Temp Pulse Resp BP O2 Del Method 96.9 F L 41 L 16 140/63 H Room Air 10/02/23 13:00 09/18/23 12:57 10/02/23 13:00 09/18/23 12:57 10/02/23 13:00 Oxygen Delivery Method Room Air Weight: 240 lb 1.75 oz Body Mass Index (BMI) 32.5 Charges/Coding Visit Charges Office Visits / Consults: 33768 OV L3 Est 20min Physical Exam Const alert, oriented x3 and no apparent distress General Appearance: cooperative and comfortable HEENT normocephalic, head/scalp atraumatic, hearing grossly normal bilaterally, external ears normal and external nose normal Eyes EOMs intact bilaterally General Eye: normal appearance of both eyes Neck full ROM General: normal visual inspection and trachea midline Resp normal respiratory effort Effort and Inspection: able to speak in complete sentences; Negative for respiratory distress, labored, stridor, retractions or audible wheezes Cardio regular rate and regular rhythm Extremity Extremity Narrative: Left BKA Palpable right PT, DP diminished to palpation Skin no rashes or lesions noted Wounds: wounds noted Wound Narrative: His wound has epithelialized. Neuro oriented x3, CN's II-XII intact bilaterally, moves all extremities and no focal motor deficits Speech: speech normal Psych mental status grossly normal Appearance: grossly normal Attitude: calm and engaged Activity / Motor Behavior: appropriate eye contact Speech: normal speech Judgement: judgement good Debridement Note Debridement Note No debridement was completed: No debridement was completed today Post-Debridement Measurements and Additional Note: Post-Debridement Measurements/Treatment - Nurse 1 - General Ulcer Assessment Start: 09/18/23 12:55 Freq: Status: Active Protocol: BERE Activity Type Activity Date Activity User E-sign Co-sign Detail Recorded Client Recorded Date Recorded By Document 09/18/23 12:57 [facility] Desktop 09/18/23 13:03 [facility] Document 09/25/23 13:15 [employer] Desktop 09/25/23 13:21 KW Document 10/02/23 13:00 [facility] Desktop 10/02/23 13:06 [facility] 09/18/23 09/25/23 10/02/23 12:57 13:15 13:00 - Today's Visit Information Type of service Follow-up Visit Follow-up Visit Follow-up Visit (Physician/REPORT ANALYST (Physician/REPORT ANALYST (Physician/REPORT ANALYST ) ) ) Arrival Mode Ambulatory Ambulatory Ambulatory Transfer Assistance None None Patient Identification Verified (Name & Yes Yes Yes ) Patient Requires Transmission-Based No No Precautions Height and Weight Body Mass Index (BMI) 32.5 32.5 32.5 BMI Classification Obese Obese Obese Vital Signs Temperature (97.8 F-99.1 F) 96.2 F L 96.9 F L 96.9 F L Temperature Source Temporal Temporal Temporal Pulse Rate (60-100) 41 L Pulse Location Monitor Monitor Respiratory Rate (12-18) 16 18 16 Respiratory rate source Observation Observation Observation Oxygen Delivery Method Room Air Room Air Room Air Blood Pressure (90/60-120/80) 140/63 H Blood Pressure Mean (mm Hg) 88 Source Monitor Monitor Position Sitting Sitting Blood Pressure Location Left Arm Left Arm History Since Last Visit- (Skip if this is Patient's initial visit) Have you changed medications since your No No No last visit? Any new allergies or adverse reactions No No No Had a fall/change in ADL's that may No No No increase risk of falls Signs or symptoms of abuse and/or No No No neglect since last visit Have you been in the hospital since your No No No last visit? Has dressing in place as prescribed Yes Yes Yes Has compression in place as prescribed N/A N/A Has offloadiing in place as prescribed Yes Yes Yes Experienced any changes in pain level or No No No management Left Footwear Regular Shoe Regular Shoe Right Footwear Surgical Shoe Surgical Shoe Surgical Shoe with pressure with pressure with pressure relief insole relief insole relief insole Pain Scale: 0-10 Numeric Is Patient Pain Free? Yes Yes Yes WC - Nurse 1 - General Ulcer Measurement Start: 09/18/23 12:55 Freq: Status: Active Protocol: Activity Type Activity Date Activity User E-sign Co-sign Detail Recorded Client Recorded Date Recorded By Document 09/18/23 12:57 [facility] Desktop 09/18/23 13:03 [facility] Edit Result 09/18/23 12:57 [facility] (1) Desktop 09/18/23 13:04 [facility] Document 09/25/23 13:15 KW Desktop 09/25/23 13:21 KW Document 10/02/23 13:00 [facility] Desktop 10/02/23 13:06 BMF (1) 2. right foot 3rd met head - Current Size (cm) - Length 0.1 => 0.2 - Total Square Cm 0.01 => 0.02 09/18/23 09/25/23 10/02/23 12:57 13:15 13:00 Wound Center Nurse 1 2. right foot 3rd met head -Combined with other wound No No -Current Size (cm) - Length 0.2 0.1 0.2 -Current Size (cm) - Width 0.1 0.1 0.1 -Current Size (cm) - Depth 0.2 0.1 0.1 -Total Square Cm 0.02 0.01 0.02 -Date of Last Picture (Recall this 09/18/23 09/25/23 10/02/23 field) -Photo Taken Yes Yes Yes -Epithelialization Medium 34-66% -Tunneling No No -Undermining/Tunneling No No -Circular Undermining No No -Exudate Amt Small None Present -Exudate Type Serosanguineous -Wound Margin Distinct, Outline Attached -Granulation Amt Large (67-100%) Large (67-100%) -Granulation Quality [place] -Slough/Fibrin Yes -Necrosis Amt Small (1-33%) -Necrotic Tissue Type Adherent Slough -Texture (Blaire-wound Skin Appearance) Assessed, Assessed, Scarring Scarring -Moisture (Blaire-wound Skin Appearance) Assessed,Dry/ Dry/Scaly Assessed,Dry/ Scaly Scaly -Color (Blaire-wound Skin Appearance) Assessed Assessed -Temperature (Blaire-wound Skin No Abnormality No Abnormality Appearance) (Pt Warm) (Pt Warm) -Tenderness on Palpation (Blaire-wound No No Skin Appearance) -Ulcer Cleansing Rinsed/ Rinsed/ Rinsed/ Irrigated with Irrigated with Irrigated with Saline Saline Saline -Foul Odor after Cleansing No No -Anesthetic Used 5% Lidocaine 5% Lidocaine 5% Lidocaine Gel Gel Gel WC - Nurse 2 - General Ulcer CM Notes Start: 09/18/23 12:55 Freq: Status: Active Protocol: Activity Type Activity Date Activity User E-sign Co-sign Detail Recorded Client Recorded Date Recorded By Document 09/18/23 16:19 PL [id number] 09/18/23 16:20 PL Document 09/25/23 15:59 PL [id number] 02/08/24 16:00 PL Document 10/02/23 13:15 Desktop 10/02/23 13:17 09/18/23 09/25/23 10/02/23 16:19 15:59 13:15 Wound Center Nurse 2 2. right foot 3rd met head -Time 13:22 13:38 13:15 -Correct Patient Yes Yes Yes -Correct Side, Site, Position Yes Yes Yes -Correct Procedure Yes Yes Yes -Procedure Performed Yes Yes -Type of Procedure Debridement Debridement -Clinical Debridement Subcutaneous Subcutaneous -Tissue Removed Subcutaneous Subcutaneous -Post Debridement (cm) - Length 0.2 0.2 -Post Debridement (cm) - Width 0.2 0.1 -Post Debridement (cm) - Depth 0.1 0.1 -Total Square (Post) (cm) 0.04 0.02 -Area of Debridement (cm) - Length 0.2 0.2 -Area of Debridement (cm) - Width 0.2 0.1 -Total Square (Area) (cm) 0.04 0.02 -Tunneling No No -Undermining/Tunneling No No -Circular Undermining No No -Wound/Ulcer Outcome Not Healed Not Healed Healed- Epithelialized -Ulcer Cleansing Rinsed/ Rinsed/ Irrigated with Irrigated with Saline Saline -Foul Odor after Cleansing No No -Bioengineered Tissue No No -Bleeding Controlled with Pressure Pressure -Treatment Response Procedure Procedure Tolerated Well Tolerated Well -Debridement - Subq, 1st 20sq cm Yes Yes Pain Scale: 0-10 Numeric Is Patient Pain Free? Yes Yes Yes WC - Nurse 3 - General Ulcer D/C NN Start: 09/18/23 12:55 Freq: Status: Active Protocol: Activity Type Activity Date Activity User E-sign Co-sign Detail Recorded Client Recorded Date Recorded By Document 09/18/23 13:33 [facility] Desktop 09/18/23 13:34 BM Document 09/25/23 13:59 DL Desktop 09/25/23 14:00 DL Document 10/02/23 13:19 Desktop 10/02/23 13:20 09/18/23 09/25/23 10/02/23 13:33 13:59 13:19 Wound Care Center Nurse 3 2. right foot 3rd met head -Ulcer Cleansing Rinsed/ Rinsed/ Not Cleansed Irrigated with Irrigated with Saline Saline -Foul Odor after Cleansing No No No -Primary Dressing Applied Promogran Promogran C Hydrogel ($), Elisa Matter Elisa Matter Mepilex Border -Primary Dressing Covered/Secured with Dry Gauze, Dry Gauze, Secured with Secured with Tape Tape -Mepilex Border 1 -Promogran Elisa Matter 1 1 Treatment Response Procedure Procedure Tolerated Well Tolerated Well Pain Scale: 0-10 Numeric Is Patient Pain Free? Yes Yes Yes WC - Visit Discharge Discharge Condition Stable Stable Stable Ambulatory Status Ambulatory Ambulatory Ambulatory Transportation Private Auto Private Auto Private Auto Medication Reconcilliation completed & Yes provided to patient/care provider Clinical Summary of Care Provided Yes Facility Type Home Health Orders Sent Yes Assessment/Plan Assessment/Plan (1) Diabetic ulcer of right foot associated with diabetes mellitus due to underlying condition, with fat layer exposed: CODE(S): E08.621 - Diabetes mellitus due to underlying condition with footulcer; L97.512 - Non-pressure chronic ulcer of other part of right foot with fatlayer exposed QUALIFIERS: Diabetic foot ulcer location: unspecified part of foot Qualified Code(s): E08.621 - Diabetes mellitus due to underlying condition withfoot ulcer; L97.512 - Non-pressure chronic ulcer of other part of right foot with fat layer exposed (2) Amputation of left lower extremity below knee: CODE(S): S88.112A - Complete traumatic amputation at level between knee and ankle, left lower leg, initial encounter PLAN: Plan His wound has epithelialized. I do recommend applying collagen hydrogel and continuing to cover with a foam border or other bulky dressing for another 1 to 2 weeks to pad and protect the area. He may try to wear his new orthotics, but again I do recommend continuing to pad this area when he does so to protect it. He should discontinue these orthotics if he should notice skin breakdown in thisarea. I do still strongly encourage him to establish care with a advertising dispatch clerk for ongoing foot care and for any potential need for orthotic adjustments. He may need to look outside of [place] to find a advertising dispatch clerk that is in-network with hisinsurance, I advise he contact his insurance to see what providers are available. He will follow-up with me in 1-2 weeks for a wound check. 10/03/23 [id number] <Electronically signed by Tamika MORE> Cosigner Signature (if applicable): CC: ~ Signed [facility] Work Phone: 1(676) 520-275402-09-2024 Progress note Author Tamika Avitia [facility] September 26, 2023 11:14am Note Date/Time September 26, 2023 8 :32am [facility] [address] [place] [address] Progress Note - Wound Care 09/26/23 0832 MR#: [id number] Acct: [id number] Name: JOE MOLINA Rep #:[id number] : 1960 63 From: Tamika MORE PCP: Care Physician,No Primary Status :REG RCR Location: History of Present Illness Date of Service: 09/25/23 Chief Complaint: Right Diabetic Foot Ulcer History of Wound: Mr. Joe Molina is a 63-year-old male who presents to the wound healing center today for evaluation and management of a right diabetic foot ulcer which seems to have formed after he began wearing regular shoes according to records received from prior wound center. This ulceration is on the right lateral foot. This wound has been ongoing for at least the last 2 months. He recently moved back to [place] from [place] where he had been for the past several years. He was receiving care for this ulceration at the wound care center there. He reports they were treating with Apligraf and PuraPly. Hereports the wound has been making positive progress over the last few weeks. Heis wearing a surgical shoe to keep pressure off of that area. He has been seen here at this wound center multiple times in the past for diabetic foot ulcers, last seen in 2015 before moving to [place]. 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 He had a left lower extremity angiogram with tibial intervention on 01/14/2023 to attempt to improve inflow for limb salvage efforts. Ultimately he did undergo the left BKA on 03/05/2023. Other than this recent angiogram he denies any prior vascular surgical interventions. He did have arterial studies in [place] on 06/17/2023 and the fax report shows a right TEDDY of 1.03 with stenosis of the right SFA. He has a history of poorly controlled diabetes but fortunately now has better control with report of his last A1c 6.8 in May. He did receive new shoe insert from podiatry in [place]. Subjective Subjective Continued improvement in the size of the wound. He continues to use the surgicalshoe. He recently established with Dr. Simons for PCP, he reports his A1c went down slightly to 6.7. He has not yet re-established care with Dr. Waldrop but reports that Dr. Simons is sending a referral to try to help with this. No new wounds, pain, N/V, F/C. Objective Data Objective Data Vital Signs: Vital Signs Temp Pulse Resp BP O2 Del Method 96.9 F L 41 L 18 140/63 H Room Air 09/25/23 13:15 09/18/23 12:57 09/25/23 13:15 09/18/23 12:57 09/25/23 13:15 Oxygen Delivery Method Room Air Weight: 240 lb 1.75 oz Body Mass Index (BMI) 32.5 Charges/Coding Procedures Integumentary 111xxx-113xx: [id number] Violet subq tissue 20 sq cm/< Physical Exam Const alert, oriented x3 and no apparent distress General Appearance: cooperative and comfortable HEENT normocephalic, head/scalp atraumatic, hearing grossly normal bilaterally, external ears normal and external nose normal Eyes EOMs intact bilaterally General Eye: normal appearance of both eyes Neck full ROM General: normal visual inspection and trachea midline Resp normal respiratory effort Effort and Inspection: able to speak in complete sentences; Negative for respiratory distress, labored, stridor, retractions or audible wheezes Cardio regular rate and regular rhythm Extremity Extremity Narrative: Left BKA Palpable right PT, DP diminished to palpation Skin no rashes or lesions noted Wounds: wounds noted Wound Narrative: Small ulceration to the right lateral aspect of the foot. There is granulation tissue at the base, some callus in the periwound. Continues to decrease in size.There is no significant tracking. No significant drainage or foul odor. Neuro oriented x3, CN's II-XII intact bilaterally, moves all extremities and no focal motor deficits Speech: speech normal Psych mental status grossly normal Appearance: grossly normal Attitude: calm and engaged Activity / Motor Behavior: appropriate eye contact Speech: normal speech Judgement: judgement good Debridement Note Debridement Note Wound debrided: Right lateral foot Laterality: Right Type of Debridement: Excisional debridement Anesthesia Used: 5% Lidocaine Gel Depth: in the subcutaneous layer Percentage of wound debrided: 100 Instrument Used: 5mm curette Tissue Removed: Callus, slough, devitalized tissue Severity: Fat Layer Exposed Amount of bleeding with debridement: Mild Bleeding Controlled with: Pressure Patient tolerated procedure: Patient tolerated procedure well Post-Debridement Measurements and Additional Note: Post-Debridement Measurements/Treatment - Nurse 1 - General Ulcer Assessment Start: 09/18/23 12:55 Freq: Status: Active Protocol: GERRI.InnolightEXJessica Activity Type Activity Date Activity User E-sign Co-sign Detail Recorded Client Recorded Date Recorded By Document 09/18/23 12:57 [employer] Desktop 09/18/23 13:03 [facility] Document 09/25/23 13:15 KW Desktop 09/25/23 13:21 KW 09/18/23 09/25/23 12:57 13:15 - Today's Visit Information Type of service Follow-up Visit Follow-up Visit (Physician/REPORT ANALYST (Physician/REPORT ANALYST ) ) Arrival Mode Ambulatory Ambulatory Transfer Assistance None Patient Identification Verified (Name & Yes Yes ) Patient Requires Transmission-Based No Precautions Height and Weight Body Mass Index (BMI) 32.5 32.5 BMI Classification Obese Obese Vital Signs Temperature (97.8 F-99.1 F) 96.2 F L 96.9 F L Temperature Source Temporal Temporal Pulse Rate (60-100) 41 L Pulse Location Monitor Respiratory Rate (12-18) 16 18 Respiratory rate source Observation Observation Oxygen Delivery Method Room Air Room Air Blood Pressure (90/60-120/80) 140/63 H Blood Pressure Mean (mm Hg) 88 Source Monitor Position Sitting Blood Pressure Location Left Arm History Since Last Visit- (Skip if this is Patient's initial visit) Have you changed medications since your No No last visit? Any new allergies or adverse reactions No No Had a fall/change in ADL's that may No No increase risk of falls Signs or symptoms of abuse and/or No No neglect since last visit Have you been in the hospital since your No No last visit? Has dressing in place as prescribed Yes Yes Has compression in place as prescribed N/A Has offloadiing in place as prescribed Yes Yes Experienced any changes in pain level or No No management Left Footwear Regular Shoe Regular Shoe Right Footwear Surgical Shoe Surgical Shoe with pressure with pressure relief insole relief insole Pain Scale: 0-10 Numeric Is Patient Pain Free? Yes Yes WC - Nurse 1 - General Ulcer Measurement Start: 09/18/23 12:55 Freq: Status: Active Protocol: Activity Type Activity Date Activity User E-sign Co-sign Detail Recorded Client Recorded Date Recorded By Document 09/18/23 12:57 [facility] Desktop 09/18/23 13:03 BM[facility] Edit Result 09/18/23 12:57 BMF (1) Desktop 09/18/23 13:04 [facility] Document 09/25/23 13:15 KW Desktop 09/25/23 13:21 KW (1) 2. right foot 3rd met head - Current Size (cm) - Length 0.1 => 0.2 - Total Square Cm 0.01 => 0.02 09/18/23 09/25/23 12:57 13:15 Wound Center Nurse 1 2. right foot 3rd met head -Combined with other wound No -Current Size (cm) - Length 0.2 0.1 -Current Size (cm) - Width 0.1 0.1 -Current Size (cm) - Depth 0.2 0.1 -Total Square Cm 0.02 0.01 -Date of Last Picture (Recall this 09/18/23 09/25/23 field) -Photo Taken Yes Yes -Epithelialization Medium 34-66% -Tunneling No -Undermining/Tunneling No -Circular Undermining No -Exudate Amt Small -Exudate Type Serosanguineous -Wound Margin Distinct, Outline Attached -Granulation Amt Large (67-100%) -Granulation Quality [place] -Slough/Fibrin Yes -Necrosis Amt Small (1-33%) -Necrotic Tissue Type Adherent Slough -Texture (Blaire-wound Skin Appearance) Assessed, Scarring -Moisture (Blaire-wound Skin Appearance) Assessed,Dry/ Dry/Scaly Scaly -Color (Blaire-wound Skin Appearance) Assessed -Temperature (Blaire-wound Skin No Abnormality Appearance) (Pt Warm) -Tenderness on Palpation (Blaire-wound No Skin Appearance) -Ulcer Cleansing Rinsed/ Rinsed/ Irrigated with Irrigated with Saline Saline -Foul Odor after Cleansing No -Anesthetic Used 5% Lidocaine 5% Lidocaine Gel Gel WC - Nurse 2 - General Ulcer CM Notes Start: 09/18/23 12:55 Freq: Status: Active Protocol: Activity Type Activity Date Activity User E-sign Co-sign Detail Recorded Client Recorded Date Recorded By Document 09/18/23 16:19 PL [id number] 09/18/23 16:20 PL Document 09/25/23 15:59 PL [id number] 09/25/23 16:00 PL 09/18/23 09/25/23 16:19 15:59 Wound Center Nurse 2 2. right foot 3rd met head -Time 13:22 13:38 -Correct Patient Yes Yes -Correct Side, Site, Position Yes Yes -Correct Procedure Yes Yes -Procedure Performed Yes Yes -Type of Procedure Debridement Debridement -Clinical Debridement Subcutaneous Subcutaneous -Tissue Removed Subcutaneous Subcutaneous -Post Debridement (cm) - Length 0.2 0.2 -Post Debridement (cm) - Width 0.2 0.1 -Post Debridement (cm) - Depth 0.1 0.1 -Total Square (Post) (cm) 0.04 0.02 -Area of Debridement (cm) - Length 0.2 0.2 -Area of Debridement (cm) - Width 0.2 0.1 -Total Square (Area) (cm) 0.04 0.02 -Tunneling No No -Undermining/Tunneling No No -Circular Undermining No No -Wound/Ulcer Outcome Not Healed Not Healed -Ulcer Cleansing Rinsed/ Rinsed/ Irrigated with Irrigated with Saline Saline -Foul Odor after Cleansing No No -Bioengineered Tissue No No -Bleeding Controlled with Pressure Pressure -Treatment Response Procedure Procedure Tolerated Well Tolerated Well -Debridement - Subq, 1st 20sq cm Yes Yes Pain Scale: 0-10 Numeric Is Patient Pain Free? Yes Yes - Nurse 3 - General Ulcer D/C NN Start: 09/18/23 12:55 Freq: Status: Active Protocol: Activity Type Activity Date Activity User E-sign Co-sign Detail Recorded Client Recorded Date Recorded By Document 09/18/23 13:33 BM Desktop 09/18/23 13:34 BMF Document 09/25/23 13:59 DL Desktop 09/25/23 14:00 DL 09/18/23 09/25/23 13:33 13:59 Wound Care Center Nurse 3 2. right foot 3rd met head -Ulcer Cleansing Rinsed/ Rinsed/ Irrigated with Irrigated with Saline Saline -Foul Odor after Cleansing No No -Primary Dressing Applied Promogran Promogran Elisa Matter Elisa Matter -Primary Dressing Covered/Secured with Dry Gauze, Dry Gauze, Secured with Secured with Tape Tape -Promogran Elisa Matter 1 1 Treatment Response Procedure Procedure Tolerated Well Tolerated Well Pain Scale: 0-10 Numeric Is Patient Pain Free? Yes Yes WC - Visit Discharge Discharge Condition Stable Stable Ambulatory Status Ambulatory Ambulatory Transportation Private Auto Private Auto Facility Type Home Health Orders Sent Yes Assessment/Plan Assessment/Plan (1) Diabetic ulcer of right foot associated with diabetes mellitus due to underlying condition, with fat layer exposed: CODE(S): E08.621 - Diabetes mellitus due to underlying condition with footulcer; L97.512 - Non-pressure chronic ulcer of other part of right foot with fatlayer exposed QUALIFIERS: Diabetic foot ulcer location: unspecified part of foot Qualified Code(s): E08.621 - Diabetes mellitus due to underlying condition withfoot ulcer; L97.512 - Non-pressure chronic ulcer of other part of right foot with fat layer exposed (2) Amputation of left lower extremity below knee: CODE(S): S88.112A - Complete traumatic amputation at level between knee and ankle, left lower leg, initial encounter PLAN: Plan Debridement performed as noted above the patient tolerated this well. Wound is improved in size this week. Will continue apply lightly moistened Elisa to the wound bed, cover with foam border dressing. Change the dressing daily or more often as needed if it becomes soiled. May wash the area gently with antibacterial soap and water and pat to dry with dressing changes. He was instructed not to submerge the wound in water. I continue to recommend wearing the surgical shoe as we are seeing good progresswith the wound. He is still working on establishing care with podiatry. For now, okay to continue to walk as needed but avoid prolonged walking or standing where possible. Elevate leg with resting. He will return to the wound healing center in 1 week. 09/26/23 1114 <Electronically signed by Tamika MORE> Cosigner Signature (if applicable): CC: ~ Signed [facility] Work Phone: 1(702) 409-651502-02-2024 Progress note Author Tamika Avitia [facility] September 19, 2023 9:27am Note Date/Time September 19, 2023 9 :27am [facility] [address] [place] [address] Progress Note - Wound Care 09/19/23 0925 MR#: [id number] Acct: [id number] Name: JOE MOLINA Rep #:[id number] : 1960 63 From: Tamika MORE PCP: Care Physician,No Primary Status :REG RCR Location: History of Present Illness Date of Service: 09/18/23 Chief Complaint: Right Diabetic Foot Ulcer History of Wound: Mr. Joe Molina is a 63-year-old male who presents to the wound healing center today for evaluation and management of a right diabetic foot ulcer which seems to have formed after he began wearing regular shoes according to records received from prior wound center. This ulceration is on the right lateral foot. This wound has been ongoing for at least the last 2 months. He recently moved back to [place] from [place] where he had been for the past several years. He was receiving care for this ulceration at the wound care center there. He reports they were treating with Apligraf and PuraPly. Hereports the wound has been making positive progress over the last few weeks. Heis wearing a surgical shoe to keep pressure off of that area. He has been seen here at this wound center multiple times in the past for diabetic foot ulcers, last seen in 2015 before moving to [place]. 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 He had a left lower extremity angiogram with tibial intervention on 01/14/2023 to attempt to improve inflow for limb salvage efforts. Ultimately he did undergo the left BKA on 03/05/2023. Other than this recent angiogram he denies any prior vascular surgical interventions. He did have arterial studies in [place] on 06/17/2023 and the fax report shows a right TEDDY of 1.03 with stenosis of the right SFA. He has a history of poorly controlled diabetes but fortunately now has better control with report of his last A1c 6.8 in May. He did receive new shoe insert from podiatry in [place]. Subjective Subjective Patient reports he is doing well, continues to manage dressings well at home. He denies any nausea, vomiting, fevers, chills, or any other complaints. He reports no significant drainage from the wound, redness or swelling around the wound. Objective Data Objective Data Vital Signs: Vital Signs Temp Pulse Resp BP O2 Del Method 96.2 F L 41 L 16 140/63 H Room Air 09/18/23 12:57 09/18/23 12:57 09/18/23 12:57 09/18/23 12:57 09/18/23 12:57 Oxygen Delivery Method Room Air Weight: 240 lb 1.75 oz Body Mass Index (BMI) 32.5 Charges/Coding Procedures Integumentary 111xxx-113xx: 03287 Violet subq tissue 20 sq cm/< Physical Exam Const alert, oriented x3 and no apparent distress General Appearance: cooperative and comfortable HEENT normocephalic, head/scalp atraumatic, hearing grossly normal bilaterally, external ears normal and external nose normal Eyes EOMs intact bilaterally General Eye: normal appearance of both eyes Neck full ROM General: normal visual inspection and trachea midline Resp normal respiratory effort Effort and Inspection: able to speak in complete sentences; Negative for respiratory distress, labored, stridor, retractions or audible wheezes Cardio regular rate and regular rhythm Extremity Extremity Narrative: Left BKA Palpable right PT, DP diminished to palpation Skin no rashes or lesions noted Wounds: wounds noted Wound Narrative: Small ulceration to the right lateral aspect of the foot. There is granulation tissue at the base, some callus in the periwound. Nearly half the size it was last week. There is no significant tracking. No significant drainage or foul odor. Neuro oriented x3, CN's II-XII intact bilaterally, moves all extremities and no focal motor deficits Speech: speech normal Psych mental status grossly normal Appearance: grossly normal Attitude: calm and engaged Activity / Motor Behavior: appropriate eye contact Speech: normal speech Judgement: judgement good Debridement Note Debridement Note Wound debrided: Right lateral foot Laterality: Right Type of Debridement: Excisional debridement Anesthesia Used: 5% Lidocaine Gel Depth: in the subcutaneous layer Percentage of wound debrided: 100 Instrument Used: 5mm curette Tissue Removed: Callus, slough, devitalized tissue Severity: Fat Layer Exposed Amount of bleeding with debridement: Mild Bleeding Controlled with: Pressure Patient tolerated procedure: Patient tolerated procedure well Post-Debridement Measurements and Additional Note: Post-Debridement Measurements/Treatment - Nurse 1 - General Ulcer Assessment Start: 09/18/23 12:55 Freq: Status: Active Protocol: BERE Activity Type Activity Date Activity User E-sign Co-sign Detail Recorded Client Recorded Date Recorded By Document 09/18/23 12:57 BMF Desktop 09/18/23 13:03 BMF 09/18/23 12:57 WC - Today's Visit Information Type of service Follow-up Visit (Physician/REPORT ANALYST ) Arrival Mode Ambulatory Transfer Assistance None Patient Identification Verified (Name & Yes ) Patient Requires Transmission-Based No Precautions Height and Weight Body Mass Index (BMI) 32.5 BMI Classification Obese Vital Signs Temperature (97.8 F-99.1 F) 96.2 F L Temperature Source Temporal Pulse Rate (60-100) 41 L Pulse Location Monitor Respiratory Rate (12-18) 16 Respiratory rate source Observation Oxygen Delivery Method Room Air Blood Pressure (90/60-120/80) 140/63 H Blood Pressure Mean (mm Hg) 88 Source Monitor Position Sitting Blood Pressure Location Left Arm History Since Last Visit- (Skip if this is Patient's initial visit) Have you changed medications since your No last visit? Any new allergies or adverse reactions No Had a fall/change in ADL's that may No increase risk of falls Signs or symptoms of abuse and/or No neglect since last visit Have you been in the hospital since your No last visit? Has dressing in place as prescribed Yes Has offloadiing in place as prescribed Yes Experienced any changes in pain level or No management Left Footwear Regular Shoe Right Footwear Surgical Shoe with pressure relief insole Pain Scale: 0-10 Numeric Is Patient Pain Free? Yes - Nurse 1 - General Ulcer Measurement Start: 09/18/23 12:55 Freq: Status: Active Protocol: Activity Type Activity Date Activity User E-sign Co-sign Detail Recorded Client Recorded Date Recorded By Document 09/18/23 12:57 BM Desktop 09/18/23 13:03 BMF Edit Result 09/18/23 12:57 BMF (1) Desktop 09/18/23 13:04 BMF (1) 2. right foot 3rd met head - Current Size (cm) - Length 0.1 => 0.2 - Total Square Cm 0.01 => 0.02 02/01/24 12:57 Wound Center Nurse 1 2. right foot 3rd met head -Combined with other wound No -Current Size (cm) - Length 0.2 -Current Size (cm) - Width 0.1 -Current Size (cm) - Depth 0.2 -Total Square Cm 0.02 -Date of Last Picture (Recall this 09/18/23 field) -Photo Taken Yes -Epithelialization Medium 34-66% -Tunneling No -Undermining/Tunneling No -Circular Undermining No -Exudate Amt Small -Exudate Type Serosanguineous -Wound Margin Distinct, Outline Attached -Granulation Amt Large (67-100%) -Granulation Quality [place] -Slough/Fibrin Yes -Necrosis Amt Small (1-33%) -Necrotic Tissue Type Adherent Slough -Texture (Blaire-wound Skin Appearance) Assessed, Scarring -Moisture (Blaire-wound Skin Appearance) Assessed,Dry/ Scaly -Color (Blaire-wound Skin Appearance) Assessed -Temperature (Blaire-wound Skin No Abnormality Appearance) (Pt Warm) -Tenderness on Palpation (Blaire-wound No Skin Appearance) -Ulcer Cleansing Rinsed/ Irrigated with Saline -Foul Odor after Cleansing No -Anesthetic Used 5% Lidocaine Gel WC - Nurse 2 - General Ulcer CM Notes Start: 09/18/23 12:55 Freq: Status: Active Protocol: Activity Type Activity Date Activity User E-sign Co-sign Detail Recorded Client Recorded Date Recorded By Document 09/18/23 16:19 PL [id number] 09/18/23 16:20 PL 09/18/23 16:19 Wound Center Nurse 2 -Time 13:22 -Correct Patient Yes -Correct Side, Site, Position Yes -Correct Procedure Yes -Procedure Performed Yes -Type of Procedure Debridement -Clinical Debridement Subcutaneous -Tissue Removed Subcutaneous -Post Debridement (cm) - Length 0.2 -Post Debridement (cm) - Width 0.2 -Post Debridement (cm) - Depth 0.1 -Total Square (Post) (cm) 0.04 -Area of Debridement (cm) - Length 0.2 -Area of Debridement (cm) - Width 0.2 -Total Square (Area) (cm) 0.04 -Tunneling No -Undermining/Tunneling No -Circular Undermining No -Wound/Ulcer Outcome Not Healed -Ulcer Cleansing Rinsed/ Irrigated with Saline -Foul Odor after Cleansing No -Bioengineered Tissue No -Bleeding Controlled with Pressure -Treatment Response Procedure Tolerated Well -Debridement - Subq, 1st 20sq cm Yes Pain Scale: 0-10 Numeric Is Patient Pain Free? Yes - Nurse 3 - General Ulcer D/C NN Start: 09/18/23 12:55 Freq: Status: Active Protocol: Activity Type Activity Date Activity User E-sign Co-sign Detail Recorded Client Recorded Date Recorded By Document 09/18/23 13:33 [facility] Desktop 09/18/23 13:34 [facility] 09/18/23 13:33 Wound Care Center Nurse 3 2. right foot 3rd met head -Ulcer Cleansing Rinsed/ Irrigated with Saline -Foul Odor after Cleansing No -Primary Dressing Applied Promogran Elisa Matter -Primary Dressing Covered/Secured with Dry Gauze, Secured with Tape -Promogran Elisa Matter 1 Treatment Response Procedure Tolerated Well Pain Scale: 0-10 Numeric Is Patient Pain Free? Yes WC - Visit Discharge Discharge Condition Stable Ambulatory Status Ambulatory Transportation Private Auto Assessment/Plan Assessment/Plan (1) Diabetic ulcer of right foot associated with diabetes mellitus due to underlying condition, with fat layer exposed: CODE(S): E08.621 - Diabetes mellitus due to underlying condition with footulcer; L97.512 - Non-pressure chronic ulcer of other part of right foot with fatlayer exposed (2) Amputation of left lower extremity below knee: CODE(S): S88.112A - Complete traumatic amputation at level between knee and ankle, left lower leg, initial encounter PLAN: Plan Debridement performed as noted above the patient tolerated this well. Wound is improved in size this week. Will continue apply lightly moistened Elisa to the wound bed, cover with foam border dressing. Change the dressing daily or more often as needed if it becomes soiled. May wash the area gently with antibacterial soap and water and pat to dry with dressing changes. He was instructed not to submerge the wound in water. I discussed with patient that for now I continue to recommend wearing the surgical shoe as we are seeing good progress with the wound. He is still workingon establishing care with podiatry. For now, okay to continue to walk as needed but avoid prolonged walking or standing where possible. Elevate leg with resting. He will return to the wound healing center in 1 week. 09/19/23 9638 <Electronically signed by Tamika MORE> Cosigner Signature (if applicable): CC: ~ Signed [facility] Work Phone: 1(963) 564-932501-26-2024 Progress note Author Tamika Avitia [facility] September 12, 2023 8:51am Note Date/Time September 12, 2023 8 :51am [facility] [address] [place] [address] Progress Note - Wound Care 09/12/23 0847 MR#: [id number] Acct: [id number] Name: JOE MOLINA Rep #:[id number] : 1960 63 From: Tamika MORE PCP: Care Physician,No Primary Status :REG RCR Location: History of Present Illness Date of Service: 09/11/23 Chief Complaint: Right Diabetic Foot Ulcer History of Wound: Mr. Joe Molina is a 63-year-old male who presents to the wound healing center today for evaluation and management of a right diabetic foot ulcer which seems to have formed after he began wearing regular shoes according to records received from prior wound center. This ulceration is on the right lateral foot. This wound has been ongoing for at least the last 2 months. He recently moved back to [place] from [place] where he had been for the past several years. He was receiving care for this ulceration at the wound care center there. He reports they were treating with Apligraf and PuraPly. Hereports the wound has been making positive progress over the last few weeks. Heis wearing a surgical shoe to keep pressure off of that area. He has been seen here at this wound center multiple times in the past for diabetic foot ulcers, last seen in 2015 before moving to [place]. 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 He had a left lower extremity angiogram with tibial intervention on 01/14/2023 to attempt to improve inflow for limb salvage efforts. Ultimately he did undergo the left BKA on 03/05/2023. Other than this recent angiogram he denies any prior vascular surgical interventions. He did have arterial studies in [place] on 06/17/2023 and the fax report shows a right TEDDY of 1.03 with stenosis of the right SFA. He has a history of poorly controlled diabetes but fortunately now has better control with report of his last A1c 6.8 in May. He did receive new shoe insert from podiatry in [place]. Subjective Subjective Patient reports doing well with dressing changes this week. He has continued towear his surgical shoe on the right foot, but is very eager to get back into hisregular shoes as the surgical shoe is impairing his ability to work fully. He notes that in [place] they had fitted that right shoe with an orthotic so as to reduce the pressure in the area of the wound. He is not yet established with a advertising dispatch clerk in [facility] yet, unfortunately most of her local providers are not in network with his insurance plan. Objective Data Objective Data Vital Signs: Vital Signs Temp Pulse Resp BP O2 Del Method 97.7 F L 39 L 20 H 144/54 H Room Air 09/11/23 13:02 09/11/23 13:02 09/11/23 13:02 09/11/23 13:02 09/04/23 12:59 Oxygen Delivery Method Room Air Weight: 240 lb 1.75 oz Body Mass Index (BMI) 32.5 Charges/Coding Procedures Integumentary 111xxx-113xx: 65839 Violet subq tissue 20 sq cm/< Physical Exam Const alert, oriented x3 and no apparent distress General Appearance: cooperative and comfortable HEENT normocephalic, head/scalp atraumatic, hearing grossly normal bilaterally, external ears normal and external nose normal Eyes EOMs intact bilaterally General Eye: normal appearance of both eyes Neck full ROM General: normal visual inspection and trachea midline Resp normal respiratory effort Effort and Inspection: able to speak in complete sentences; Negative for respiratory distress, labored, stridor, retractions or audible wheezes Cardio regular rate and regular rhythm Extremity Extremity Narrative: Left BKA Palpable right PT, DP diminished to palpation Skin no rashes or lesions noted Wounds: wounds noted Wound Narrative: Small ulceration to the right lateral aspect of the foot. There is granulation tissue at the base, some callus in the periwound. There is no significant tracking. Minimal periwound erythema without excessive warmth or focal swelling. No significant drainage or foul odor. Neuro oriented x3, CN's II-XII intact bilaterally, moves all extremities and no focal motor deficits Speech: speech normal Psych mental status grossly normal Appearance: grossly normal Attitude: calm and engaged Activity / Motor Behavior: appropriate eye contact Speech: normal speech Judgement: judgement good Debridement Note Debridement Note Wound debrided: Right lateral foot Laterality: Right Type of Debridement: Excisional debridement Anesthesia Used: 5% Lidocaine Gel Depth: in the subcutaneous layer Percentage of wound debrided: 100 Instrument Used: 5mm curette Tissue Removed: Callus, slough, devitalized tissue Severity: Fat Layer Exposed Amount of bleeding with debridement: Mild Bleeding Controlled with: Pressure Patient tolerated procedure: Patient tolerated procedure well Post-Debridement Measurements and Additional Note: Post-Debridement Measurements/Treatment WC - Nurse 1 - General Ulcer Assessment Start: 08/21/23 13:12 Freq: Status: Active Protocol: BERE Activity Type Activity Date Activity User E-sign Co-sign Detail Recorded Client Recorded Date Recorded By Document 08/21/23 13:12 DL Desktop 08/21/23 13:27 DL Edit Result 08/21/23 13:12 DL (1) Desktop 08/21/23 13:30 DL Document 08/28/23 13:10 KW Desktop 08/28/23 13:16 KW Document 09/04/23 12:59 BMF Desktop 09/04/23 13:08 BMF Document 09/11/23 13:02 DL Desktop 09/11/23 13:06 DL (1) Preferred language => Citizen Of [place] Able to Read => Yes Able to Write => Yes Communication Tools => None Right Hearing Abillity => Normal Left Hearing Abillity => Normal Visual Assistive Devices => Glasses Preferences => Verbal,Written Barriers to Learning => None Readiness To Learn => Good Willingness to Engage in Self Management => Med Activies Readiness to Engage in Self Management => Med Activities Anxiety Level => Calm Cooperation => Cooperative Perception => Coherent Interest in Health Problem => Asks Questions Education Importance => Acknowledges Need Does Patient Smoke tobacco or other => No substances Is Patient Diabetic => Yes Recent Decline in Ability to Perform => Denies Any => Declines Cultural/Presybeterian Needs that may affect => No Treatment Plan Would you allow our hospital maintenance shop welder to => No meet you for the purpose of spiritual/ emotional support? [email or web address] Developer to contact place of mormon => No 08/21/23 08/28/23 09/04/23 13:12 13:10 12:59 WC - Today's Visit Information Type of service Initial Visit Nurse-only Follow-up Visit Visit (Physician/REPORT ANALYST ) Arrival Mode Ambulatory Ambulatory Ambulatory Transfer Assistance None None Patient Identification Verified (Name & Yes Yes Yes ) Patient Requires Transmission-Based No No Precautions Finger Stick Blood Sugar(mg/dl) (if 122 indicated): Blood Sugar Stated by Patient Height and Weight Height 6 ft Weight 240 lb 1.75 oz Weight in Pounds 240.1 lbs Body Mass Index (BMI) 32.5 32.5 32.5 BMI Classification Obese Obese Obese BSA - Ben 2.30 Vital Signs Temperature (97.8 F-99.1 F) 98.1 F 98.4 F Temperature Source Temporal Temporal Pulse Rate (60-100) 61 40 L Pulse Location Monitor Monitor Monitor Respiratory Rate (12-18) 18 16 16 Respiratory rate source Observation Observation Observation Oxygen Delivery Method Room Air Room Air Blood Pressure (90/60-120/80) 141/76 H 163/98 H 133/49 H Blood Pressure Mean (mm Hg) 97 119 77 Source Monitor Monitor Monitor Position Semi-Fowlers Sitting Blood Pressure Location Left Arm Left Arm History Since Last Visit- (Skip if this is Patient's initial visit) Have you changed medications since your No No last visit? Any new allergies or adverse reactions No No Had a fall/change in ADL's that may No No increase risk of falls Signs or symptoms of abuse and/or No No neglect since last visit Have you been in the hospital since your No No last visit? Has dressing in place as prescribed Yes Yes Has compression in place as prescribed No N/A Has offloadiing in place as prescribed No N/A Experienced any changes in pain level or No No management Left Footwear Regular Shoe Regular Shoe Regular Shoe Right Footwear Surgical Shoe Regular Shoe Regular Shoe with pressure relief insole Pain Scale: 0-10 Numeric Is Patient Pain Free? Yes Yes Yes Communication Assessment Preferred language Citizen Of [place] Able to Read Yes Able to Write Yes Communication Tools None Right Hearing Abillity Normal Left Hearing Abillity Normal Visual Assistive Devices Glasses Teaching Assessment Preferences Verbal,Written Barriers to Learning None Readiness To Learn Good Willingness to Engage in Self Management Med Activies Readiness to Engage in Self Management Med Activities Anxiety Level Calm Cooperation Cooperative Perception Coherent Interest in Health Problem Asks Questions Education Importance Acknowledges Need Does Patient Smoke tobacco or other No substances Is Patient Diabetic Yes Functional Assessment Recent Decline in Ability to Perform Denies Any Declines Culture/Presybeterian/As400 Developer Cultural/Presybeterian Needs that may affect No Treatment Plan Would you allow our [facility] maintenance shop welder to No meet you for the purpose of spiritual/ emotional support? [id number] Developer to contact place of mormon No 09/11/23 13:02 WC - Today's Visit Information Type of service Follow-up Visit (Physician/REPORT ANALYST ) Arrival Mode Ambulatory Transfer Assistance None Patient Identification Verified (Name & Yes ) Patient Requires Transmission-Based No Precautions Finger Stick Blood Sugar(mg/dl) (if 137 indicated): Blood Sugar Stated by Patient Height and Weight Height Weight Weight in Pounds Body Mass Index (BMI) 32.5 BMI Classification Obese BSA - Ben Vital Signs Temperature (97.8 F-99.1 F) 97.7 F L Temperature Source Temporal Pulse Rate (60-100) 39 L Pulse Location Monitor Respiratory Rate (12-18) 20 H Respiratory rate source Observation Oxygen Delivery Method Blood Pressure (90/60-120/80) 144/54 H Blood Pressure Mean (mm Hg) 84 Source Monitor Position Blood Pressure Location History Since Last Visit- (Skip if this is Patient's initial visit) Have you changed medications since your No last visit? Any new allergies or adverse reactions No Had a fall/change in ADL's that may No increase risk of falls Signs or symptoms of abuse and/or No neglect since last visit Have you been in the hospital since your No last visit? Has dressing in place as prescribed Yes Has compression in place as prescribed N/A Has offloadiing in place as prescribed Yes Experienced any changes in pain level or No management Left Footwear Right Footwear Pain Scale: 0-10 Numeric Is Patient Pain Free? Yes Communication Assessment Preferred language Able to Read Able to Write Communication Tools Right Hearing Abillity Left Hearing Abillity Visual Assistive Devices Teaching Assessment Preferences Barriers to Learning Readiness To Learn Willingness to Engage in Self Management Activies Readiness to Engage in Self Management Activities Anxiety Level Cooperation Perception Interest in Health Problem Education Importance Does Patient Smoke tobacco or other substances Is Patient Diabetic Functional Assessment Recent Decline in Ability to Perform Culture/Presybeterian/As400 Developer Cultural/Presybeterian Needs that may affect Treatment Plan Would you allow our [facility] maintenance shop welder to meet you for the purpose of spiritual/ emotional support? As400 Developer to contact place of mormon WC - Nurse 1 - General Ulcer Measurement Start: 08/21/23 13:12 Freq: Status: Active Protocol: Activity Type Activity Date Activity User E-sign Co-sign Detail Recorded Client Recorded Date Recorded By Document 08/21/23 13:12 DL Desktop 08/21/23 13:27 DL Document 08/28/23 13:10 KW Desktop 08/28/23 13:16 KW Document 09/04/23 12:59 BMF Desktop 09/04/23 13:08 BMF Document 09/11/23 13:02 DL Desktop 09/11/23 13:06 DL 08/21/23 08/28/23 09/04/23 13:12 13:10 12:59 Wound Center Nurse 1 2. right foot 3rd met head -Combined with other wound No -Current Size (cm) - Length 0.7 0.2 0.5 -Current Size (cm) - Width 0.4 1 0.3 -Current Size (cm) - Depth 0.1 0.1 0.2 -Total Square Cm 0.28 0.2 0.15 -Date of Last Picture (Recall this 09/04/23 field) -Photo Taken Yes Yes -Epithelialization Small 1-33% -Tunneling No -Undermining/Tunneling No -Maximum Distance #2 (cm) 0.6 -Circular Undermining Yes No -Exudate Amt Small Small Medium -Exudate Type Serosanguineous Serosanguineous Serosanguineous -Wound Margin Thickened Distinct, Distinct, Outline Outline Attached Attached -Granulation Amt Small (1-33%) Medium (34-66%) Large (67-100%) -Granulation Quality Pale,[place] -Slough/Fibrin Yes -Necrosis Amt Small (1-33%) Small (1-33%) Small (1-33%) -Necrotic Tissue Type Adherent Slough Adherent Slough Adherent Slough -Structure Exposed N/A -Texture (Blaire-wound Skin Appearance) Scarring Callus Assessed, Scarring -Moisture (Blaire-wound Skin Appearance) Dry/Scaly Assessed Assessed,Dry/ Scaly -Color (Blaire-wound Skin Appearance) No Abnormality Assessed Assessed -Temperature (Blaire-wound Skin No Abnormality No Abnormality No Abnormality Appearance) (Pt Warm) (Pt Warm) (Pt Warm) -Tenderness on Palpation (Blaire-wound No No Skin Appearance) -Ulcer Cleansing Not Cleansed Rinsed/ Rinsed/ Irrigated with Irrigated with Saline Saline -Foul Odor after Cleansing No No -Anesthetic Used 5% Lidocaine 5% Lidocaine 5% Lidocaine Gel Gel Gel 09/11/23 13:02 Wound Center Nurse 1 2. right foot 3rd met head -Combined with other wound -Current Size (cm) - Length 0.5 -Current Size (cm) - Width 0.3 -Current Size (cm) - Depth 0.2 -Total Square Cm 0.15 -Date of Last Picture (Recall this field) -Photo Taken Yes -Epithelialization -Tunneling -Undermining/Tunneling -Maximum Distance #2 (cm) -Circular Undermining -Exudate Amt Small -Exudate Type Serosanguineous -Wound Margin Thickened -Granulation Amt None Present (0 %) -Granulation Quality -Slough/Fibrin -Necrosis Amt Small (1-33%) -Necrotic Tissue Type Adherent Slough -Structure Exposed N/A -Texture (Blaire-wound Skin Appearance) Callus,Scarring -Moisture (Blaire-wound Skin Appearance) No Abnormality -Color (Blaire-wound Skin Appearance) No Abnormality -Temperature (Blaire-wound Skin No Abnormality Appearance) (Pt Warm) -Tenderness on Palpation (Blaire-wound No Skin Appearance) -Ulcer Cleansing Soap and Water -Foul Odor after Cleansing No -Anesthetic Used 5% Lidocaine Gel WC - Nurse 2 - General Ulcer CM Notes Start: 08/21/23 13:12 Freq: Status: Active Protocol: Activity Type Activity Date Activity User E-sign Co-sign Detail Recorded Client Recorded Date Recorded By Document 08/21/23 16:18 PL [id number] 08/21/23 16:19 PL Document 08/28/23 15:59 PL [id number] 08/28/23 16:00 PL Document 09/04/23 15:53 PL [id number] 09/04/23 15:55 PL Document 09/11/23 15:35 PL [id number] 09/11/23 15:35 PL 08/21/23 08/28/23 09/04/23 16:18 15:59 15:53 Wound Center Nurse 2 2. right foot 3rd met head -Time 13:54 13:31 13:20 -Correct Patient Yes Yes Yes -Correct Side, Site, Position Yes Yes Yes -Correct Procedure Yes Yes Yes -Procedure Performed Yes Yes Yes -Type of Procedure Debridement Debridement Debridement -Clinical Debridement Subcutaneous Subcutaneous Subcutaneous -Tissue Removed Subcutaneous Subcutaneous Subcutaneous -Post Debridement (cm) - Length 1.0 0.7 0.6 -Post Debridement (cm) - Width 0.7 0.6 0.5 -Post Debridement (cm) - Depth 0.2 0.1 0.1 -Total Square (Post) (cm) 0.70 0.42 0.30 -Area of Debridement (cm) - Length 1.0 0.7 0.6 -Area of Debridement (cm) - Width 0.7 0.6 0.5 -Total Square (Area) (cm) 0.70 0.42 0.30 -Tunneling No No No -Undermining/Tunneling No No No -Circular Undermining No No No -Wound/Ulcer Outcome Not Healed Not Healed Not Healed -Ulcer Cleansing Rinsed/ Rinsed/ Rinsed/ Irrigated with Irrigated with Irrigated with Saline Saline Saline -Foul Odor after Cleansing No No No -Bioengineered Tissue No No No -Bleeding Controlled with Pressure Pressure Pressure -Treatment Response Procedure Procedure Procedure Tolerated Well Tolerated Well Tolerated Well -Debridement - Subq, 1st 20sq cm Yes Yes Yes Pain Scale: 0-10 Numeric Is Patient Pain Free? Yes Yes Yes 09/11/23 15:35 Wound Center Nurse 2 2. right foot 3rd met head -Time 13:28 -Correct Patient Yes -Correct Side, Site, Position Yes -Correct Procedure Yes -Procedure Performed Yes -Type of Procedure Debridement -Clinical Debridement Subcutaneous -Tissue Removed Subcutaneous -Post Debridement (cm) - Length 0.4 -Post Debridement (cm) - Width 0.4 -Post Debridement (cm) - Depth 0.1 -Total Square (Post) (cm) 0.16 -Area of Debridement (cm) - Length 0.4 -Area of Debridement (cm) - Width 0.4 -Total Square (Area) (cm) 0.16 -Tunneling No -Undermining/Tunneling No -Circular Undermining No -Wound/Ulcer Outcome Not Healed -Ulcer Cleansing Rinsed/ Irrigated with Saline -Foul Odor after Cleansing No -Bioengineered Tissue No -Bleeding Controlled with Pressure -Treatment Response Procedure Tolerated Well -Debridement - Subq, 1st 20sq cm Yes Pain Scale: 0-10 Numeric Is Patient Pain Free? Yes - Nurse 3 - General Ulcer D/C NN Start: 08/21/23 13:12 Freq: Status: Active Protocol: Activity Type Activity Date Activity User E-sign Co-sign Detail Recorded Client Recorded Date Recorded By Document 08/21/23 14:29 BM Desktop 08/21/23 14:29 BM Document 08/28/23 13:48 KW Desktop 08/28/23 13:49 KW Document 09/04/23 13:42 KW Desktop 09/04/23 13:42 KW Document 09/11/23 13:49 KW Desktop 09/11/23 13:50 KW 08/21/23 08/28/23 09/04/23 14:29 13:48 13:42 Wound Care Center Nurse 3 2. right foot 3rd met head -Ulcer Cleansing Rinsed/ Irrigated with Saline -Foul Odor after Cleansing No -Primary Dressing Applied Mepilex Border, Promogran Promogran Promogran Elisa Matter Elisa Matter Elisa Matter -Primary Dressing Covered/Secured with Dry Gauze, Dry Gauze, Secured with Secured with Tape Tape -Mepilex Border 1 -Promogran Elisa Matter 1 1 2 Treatment Response Procedure Tolerated Well Pain Scale: 0-10 Numeric Is Patient Pain Free? Yes Yes Yes - Visit Discharge Discharge Condition Stable Stable Stable Ambulatory Status Ambulatory Ambulatory Ambulatory Transportation Private Auto Private Auto Private Auto Medication Reconcilliation completed & No No provided to patient/care provider Clinical Summary of Care Provided Yes Yes 09/11/23 13:49 Wound Care Center Nurse 3 2. right foot 3rd met head -Ulcer Cleansing -Foul Odor after Cleansing -Primary Dressing Applied Promogran Elisa Matter -Primary Dressing Covered/Secured with Dry Gauze & Roll Gauze, Secured with Tape -Mepilex Border -Promogran Elisa Matter 2 Treatment Response Pain Scale: 0-10 Numeric Is Patient Pain Free? Yes - Visit Discharge Discharge Condition Stable Ambulatory Status Ambulatory Transportation Private Auto Medication Reconcilliation completed & No provided to patient/care provider Clinical Summary of Care Provided Yes Assessment/Plan Assessment/Plan (1) Diabetic ulcer of right foot associated with diabetes mellitus due to underlying condition, with fat layer exposed: CODE(S): E08.621 - Diabetes mellitus due to underlying condition with footulcer; L97.512 - Non-pressure chronic ulcer of other part of right foot with fatlayer exposed (2) Amputation of left lower extremity below knee: CODE(S): S88.112A - Complete traumatic amputation at level between knee and ankle, left lower leg, initial encounter PLAN: Plan Debridement performed as noted above the patient tolerated this well. Wound is improved in size this week. Will continue apply lightly moistened Elisa to the wound bed, cover with foam border dressing. Change the dressing daily or more often as needed if it becomes soiled. May wash the area gently with antibacterial soap and water and pat to dry with dressing changes. He was instructed not to submerge the wound in water. I discussed with patient that for now I continue to recommend wearing the surgical shoe as we are seeing good progress with the wound. If he were to transition back to his regular shoe even with the orthotic in place I cannot guarantee that the wound would not regress; however, this is something he is going to try I recommend doing it for only a few hours at a time and closely monitoring the wound. As I am not a advertising dispatch clerk, I am not very familiar with different orthotics or shoes available. Strongly advise him to establish with apodiatrist who can provide more specialized evaluation and recommendations in this regard. His insurance is a challenge, but he does indicate a willingness to pay [id number] if affordable so I encouraged him to reach out to Dr. Mitchell's office as he has previously established there. For now, okay to walk as needed but avoid prolonged walking or standing where possible. Elevate leg with resting. He will return to the wound healing center in 1 week. 09/12/23 0851 <Electronically signed by Tamika MORE> Cosigner Signature (if applicable): CC: ~ Signed [facility] Work Phone: [phone] Progress note Author Tamika Avitia [facility] September 05, 2023 8:08am Note Date/Time September 04, 2023 5 :11pm [facility] [address] [place] [address] Progress Note - Wound Care 09/04/23 1711 MR#: [id number] Acct: [id number] Name: JOE MOLINA Rep #:[id number] : 1960 63 From: Tamika MORE PCP: Care Physician,No Primary Status :REG RCR Location: History of Present Illness Date of Service: 09/04/23 Chief Complaint: Right Diabetic Foot Ulcer History of Wound: Mr. Joe Molina is a 63-year-old male who presents to the wound healing center today for evaluation and management of a right diabetic foot ulcer which seems to have formed after he began wearing regular shoes according to records received from prior wound center. This ulceration is on the right lateral foot. This wound has been ongoing for at least the last 2 months. He recently moved back to [place] from [place] where he had been for the past several years. He was receiving care for this ulceration at the wound care center there. He reports they were treating with Apligraf and PuraPly. Hereports the wound has been making positive progress over the last few weeks. Heis wearing a surgical shoe to keep pressure off of that area. He has been seen here at this wound center multiple times in the past for diabetic foot ulcers, last seen in 2015 before moving to [place]. 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 He had a left lower extremity angiogram with tibial intervention on 01/14/2023 to attempt to improve inflow for limb salvage efforts. Ultimately he did undergo the left BKA on 03/05/2023. Other than this recent angiogram he denies any prior vascular surgical interventions. He did have arterial studies in [place] on 06/17/2023 and the fax report shows a right TEDDY of 1.03 with stenosis of the right SFA. He has a history of poorly controlled diabetes but fortunately now has better control with report of his last A1c 6.8 in May. He did receive new shoe insert from podiatry in [place]. He just got back to [place] this week. He has called to establish with a PCP but his first appointment is not until September. He relates that he will be out of insulin before then and he is concerned about this. He is also having some trouble with his prosthetic, there is a spot that is rubbing against his left knee but he has not established with a prosthetics company here in [place] yet. Gms not established with a advertising dispatch clerk here yet. Subjective Subjective He has done better with dressing changes this week using a mirror and larger piece of Elisa to ensure he is covering the wound. The wound has improved in size again this week. No N/V, F/C, redness, swelling, increased drainage, foul odor. Objective Data Objective Data Vital Signs: Vital Signs Temp Pulse Resp BP O2 Del Method 98.4 F 40 L 16 133/49 H Room Air 09/04/23 12:59 09/04/23 12:59 09/04/23 12:59 09/04/23 12:59 09/04/23 12:59 Oxygen Delivery Method Room Air Weight: 240 lb 1.75 oz Body Mass Index (BMI) 32.5 Charges/Coding Procedures Integumentary 111xxx-113xx: 81177 Violet subq tissue 20 sq cm/< Physical Exam Const alert, oriented x3 and no apparent distress General Appearance: cooperative and comfortable HEENT normocephalic, head/scalp atraumatic, hearing grossly normal bilaterally, external ears normal and external nose normal Eyes EOMs intact bilaterally General Eye: normal appearance of both eyes Neck full ROM General: normal visual inspection and trachea midline Resp normal respiratory effort Effort and Inspection: able to speak in complete sentences; Negative for respiratory distress, labored, stridor, retractions or audible wheezes Cardio regular rate and regular rhythm Extremity Extremity Narrative: Left BKA Palpable right PT, DP diminished to palpation Skin no rashes or lesions noted Wounds: wounds noted Wound Narrative: Small ulceration to the right lateral aspect of the foot. There is granulation tissue at the base, some callus in the periwound. There is no significant tracking. Minimal periwound erythema without excessive warmth or focal swelling. No significant drainage or foul odor. Neuro oriented x3, CN's II-XII intact bilaterally, moves all extremities and no focal motor deficits Speech: speech normal Psych mental status grossly normal Appearance: grossly normal Attitude: calm and engaged Activity / Motor Behavior: appropriate eye contact Speech: normal speech Judgement: judgement good Debridement Note Debridement Note Wound debrided: Right lateral foot Laterality: Right Type of Debridement: Excisional debridement Anesthesia Used: 5% Lidocaine Gel Depth: in the subcutaneous layer Percentage of wound debrided: 100 Instrument Used: 5mm curette Tissue Removed: Callus, slough, devitalized tissue Severity: Fat Layer Exposed Amount of bleeding with debridement: Mild Bleeding Controlled with: Pressure Patient tolerated procedure: Patient tolerated procedure well Post-Debridement Measurements and Additional Note: Post-Debridement Measurements/Treatment - Nurse 1 - General Ulcer Assessment Start: 08/21/23 13:12 Freq: Status: Active Protocol: BERE Activity Type Activity Date Activity User E-sign Co-sign Detail Recorded Client Recorded Date Recorded By Document 08/21/23 13:12 DL Desktop 08/21/23 13:27 DL Edit Result 08/21/23 13:12 DL (1) Desktop 08/21/23 13:30 DL Document 08/28/23 13:10 KW Desktop 08/28/23 13:16 KW Document 09/04/23 12:59 BMF Desktop 09/04/23 13:08 BMF (1) Preferred language => Citizen Of [place] Able to Read => Yes Able to Write => Yes Communication Tools => None Right Hearing Abillity => Normal Left Hearing Abillity => Normal Visual Assistive Devices => Glasses Preferences => Verbal,Written Barriers to Learning => None Readiness To Learn => Good Willingness to Engage in Self Management => Med Activies Readiness to Engage in Self Management => Med Activities Anxiety Level => Calm Cooperation => Cooperative Perception => Coherent Interest in Health Problem => Asks Questions Education Importance => Acknowledges Need Does Patient Smoke tobacco or other => No substances Is Patient Diabetic => Yes Recent Decline in Ability to Perform => Denies Any => Declines Cultural/Presybeterian Needs that may affect => No Treatment Plan Would you allow our hospital maintenance shop welder to => No meet you for the purpose of spiritual/ emotional support? [id number] Developer to contact place of mormon => No 08/21/23 08/28/23 09/04/23 13:12 13:10 12:59 - Today's Visit Information Type of service Initial Visit Nurse-only Follow-up Visit Visit (Physician/REPORT ANALYST ) Arrival Mode Ambulatory Ambulatory Ambulatory Transfer Assistance None None Patient Identification Verified (Name & Yes Yes Yes ) Patient Requires Transmission-Based No No Precautions Finger Stick Blood Sugar(mg/dl) (if 122 indicated): Blood Sugar Stated by Patient Height and Weight Height 6 ft Weight 240 lb 1.75 oz Weight in Pounds 240.1 lbs Body Mass Index (BMI) 32.5 32.5 32.5 BMI Classification Obese Obese Obese BSA - Ben 2.30 Vital Signs Temperature (97.8 F-99.1 F) 98.1 F 98.4 F Temperature Source Temporal Temporal Pulse Rate (60-100) 61 40 L Pulse Location Monitor Monitor Monitor Respiratory Rate (12-18) 18 16 16 Respiratory rate source Observation Observation Observation Oxygen Delivery Method Room Air Room Air Blood Pressure (90/60-120/80) 141/76 H 163/98 H 133/49 H Blood Pressure Mean (mm Hg) 97 119 77 Source Monitor Monitor Monitor Position Semi-Fowlers Sitting Blood Pressure Location Left Arm Left Arm History Since Last Visit- (Skip if this is Patient's initial visit) Have you changed medications since your No No last visit? Any new allergies or adverse reactions No No Had a fall/change in ADL's that may No No increase risk of falls Signs or symptoms of abuse and/or No No neglect since last visit Have you been in the hospital since your No No last visit? Has dressing in place as prescribed Yes Yes Has compression in place as prescribed No N/A Has offloadiing in place as prescribed No N/A Experienced any changes in pain level or No No management Left Footwear Regular Shoe Regular Shoe Regular Shoe Right Footwear Surgical Shoe Regular Shoe Regular Shoe with pressure relief insole Pain Scale: 0-10 Numeric Is Patient Pain Free? Yes Yes Yes Communication Assessment Preferred language Citizen Of [place] Able to Read Yes Able to Write Yes Communication Tools None Right Hearing Abillity Normal Left Hearing Abillity Normal Visual Assistive Devices Glasses Teaching Assessment Preferences Verbal,Written Barriers to Learning None Readiness To Learn Good Willingness to Engage in Self Management Med Activies Readiness to Engage in Self Management Med Activities Anxiety Level Calm Cooperation Cooperative Perception Coherent Interest in Health Problem Asks Questions Education Importance Acknowledges Need Does Patient Smoke tobacco or other No substances Is Patient Diabetic Yes Functional Assessment Recent Decline in Ability to Perform Denies Any Declines Culture/Presybeterian/As400 Developer Cultural/Presybeterian Needs that may affect No Treatment Plan Would you allow our hospital maintenance shop welder to No meet you for the purpose of spiritual/ emotional support? [email or web address] Developer to contact place of mormon No WC - Nurse 1 - General Ulcer Measurement Start: 08/21/23 13:12 Freq: Status: Active Protocol: Activity Type Activity Date Activity User E-sign Co-sign Detail Recorded Client Recorded Date Recorded By Document 08/21/23 13:12 DL Desktop 08/21/23 13:27 DL Document 08/28/23 13:10 KW Desktop 08/28/23 13:16 KW Document 09/04/23 12:59 BM Desktop 09/04/23 13:08 BMF 08/21/23 08/28/23 09/04/23 13:12 13:10 12:59 Wound Center Nurse 1 2. right foot 3rd met head -Combined with other wound No -Current Size (cm) - Length 0.7 0.2 0.5 -Current Size (cm) - Width 0.4 1 0.3 -Current Size (cm) - Depth 0.1 0.1 0.2 -Total Square Cm 0.28 0.2 0.15 -Date of Last Picture (Recall this 09/04/23 field) -Photo Taken Yes Yes -Epithelialization Small 1-33% -Tunneling No -Undermining/Tunneling No -Maximum Distance #2 (cm) 0.6 -Circular Undermining Yes No -Exudate Amt Small Small Medium -Exudate Type Serosanguineous Serosanguineous Serosanguineous -Wound Margin Thickened Distinct, Distinct, Outline Outline Attached Attached -Granulation Amt Small (1-33%) Medium (34-66%) Large (67-100%) -Granulation Quality Pale,[place] -Slough/Fibrin Yes -Necrosis Amt Small (1-33%) Small (1-33%) Small (1-33%) -Necrotic Tissue Type Adherent Slough Adherent Slough Adherent Slough -Structure Exposed N/A -Texture (Blaire-wound Skin Appearance) Scarring Callus Assessed, Scarring -Moisture (Blaire-wound Skin Appearance) Dry/Scaly Assessed Assessed,Dry/ Scaly -Color (Blaire-wound Skin Appearance) No Abnormality Assessed Assessed -Temperature (Blaire-wound Skin No Abnormality No Abnormality No Abnormality Appearance) (Pt Warm) (Pt Warm) (Pt Warm) -Tenderness on Palpation (Blaire-wound No No Skin Appearance) -Ulcer Cleansing Not Cleansed Rinsed/ Rinsed/ Irrigated with Irrigated with Saline Saline -Foul Odor after Cleansing No No -Anesthetic Used 5% Lidocaine 5% Lidocaine 5% Lidocaine Gel Gel Gel WC - Nurse 2 - General Ulcer CM Notes Start: 08/21/23 13:12 Freq: Status: Active Protocol: Activity Type Activity Date Activity User E-sign Co-sign Detail Recorded Client Recorded Date Recorded By Document 08/21/23 16:18 PL [id number] 08/21/23 16:19 PL Document 08/28/23 15:59 PL [id number] 08/28/23 16:00 PL Document 09/04/23 15:53 PL [id number] 09/04/23 15:55 PL 08/21/23 08/28/23 09/04/23 16:18 15:59 15:53 Wound Center Nurse 2 2. right foot 3rd met head -Time 13:54 13:31 13:20 -Correct Patient Yes Yes Yes -Correct Side, Site, Position Yes Yes Yes -Correct Procedure Yes Yes Yes -Procedure Performed Yes Yes Yes -Type of Procedure Debridement Debridement Debridement -Clinical Debridement Subcutaneous Subcutaneous Subcutaneous -Tissue Removed Subcutaneous Subcutaneous Subcutaneous -Post Debridement (cm) - Length 1.0 0.7 0.6 -Post Debridement (cm) - Width 0.7 0.6 0.5 -Post Debridement (cm) - Depth 0.2 0.1 0.1 -Total Square (Post) (cm) 0.70 0.42 0.30 -Area of Debridement (cm) - Length 1.0 0.7 0.6 -Area of Debridement (cm) - Width 0.7 0.6 0.5 -Total Square (Area) (cm) 0.70 0.42 0.30 -Tunneling No No No -Undermining/Tunneling No No No -Circular Undermining No No No -Wound/Ulcer Outcome Not Healed Not Healed Not Healed -Ulcer Cleansing Rinsed/ Rinsed/ Rinsed/ Irrigated with Irrigated with Irrigated with Saline Saline Saline -Foul Odor after Cleansing No No No -Bioengineered Tissue No No No -Bleeding Controlled with Pressure Pressure Pressure -Treatment Response Procedure Procedure Procedure Tolerated Well Tolerated Well Tolerated Well -Debridement - Subq, 1st 20sq cm Yes Yes Yes Pain Scale: 0-10 Numeric Is Patient Pain Free? Yes Yes Yes WC - Nurse 3 - General Ulcer D/C NN Start: 08/21/23 13:12 Freq: Status: Active Protocol: Activity Type Activity Date Activity User E-sign Co-sign Detail Recorded Client Recorded Date Recorded By Document 08/21/23 14:29 BMF Desktop 08/21/23 14:29 BM Document 08/28/23 13:48 KW Desktop 08/28/23 13:49 KW Document 09/04/23 13:42 KW Desktop 09/04/23 13:42 KW 08/21/23 08/28/23 09/04/23 14:29 13:48 13:42 Wound Care Center Nurse 3 2. right foot 3rd met head -Ulcer Cleansing Rinsed/ Irrigated with Saline -Foul Odor after Cleansing No -Primary Dressing Applied Mepilex Border, Promogran Promogran Promogran Elisa Matter Elisa Matter Elisa Matter -Primary Dressing Covered/Secured with Dry Gauze, Dry Gauze, Secured with Secured with Tape Tape -Mepilex Border 1 -Promogran Elisa Matter 1 1 2 Treatment Response Procedure Tolerated Well Pain Scale: 0-10 Numeric Is Patient Pain Free? Yes Yes Yes WC - Visit Discharge Discharge Condition Stable Stable Stable Ambulatory Status Ambulatory Ambulatory Ambulatory Transportation Private Auto Private Auto Private Auto Medication Reconcilliation completed & No No provided to patient/care provider Clinical Summary of Care Provided Yes Yes Assessment/Plan Assessment/Plan (1) Diabetic ulcer of right foot associated with diabetes mellitus due to underlying condition, with fat layer exposed: CODE(S): E08.621 - Diabetes mellitus due to underlying condition with footulcer; L97.512 - Non-pressure chronic ulcer of other part of right foot with fatlayer exposed (2) Amputation of left lower extremity below knee: CODE(S): S88.112A - Complete traumatic amputation at level between knee and ankle, left lower leg, initial encounter PLAN: Plan Debridement performed as noted above the patient tolerated this well. Wound is improved in size this week. Will continue apply lightly moistened Elisa to the wound bed, cover with foam border dressing. Change the dressing daily or more often as needed if it becomes soiled. May wash the area gently with antibacterial soap and water and pat to dry with dressing changes. He was instructed not to submerge the wound in water. Continue to wear the surgical shoe and ensure no pressure/friction against the wound. For now, okay to walk as needed but avoid prolonged walking or standing where possible. Elevate leg with resting. He will return to the wound healing center in 1 week. 09/05/23 0808 <Electronically signed by Tamika MORE> Cosigner Signature (if applicable): CC: ~ Signed [facility] Work Phone: [phone] 226-639001-12-2024 Progress note Author Tamika Avitia [facility] August 29, 2023 7:31am Note Date/Time August 29, 2023 7 :31am [facility] [address] [place] [address] Progress Note - Wound Care 08/29/23 0726 MR#: [id number] Acct: [id number] Name: JOE MOLINA Rep #:[id number] : 1960 63 From: Tamika MORE PCP: Care Physician,No Primary Status :REG RCR Location: History of Present Illness Date of Service: 08/28/23 Chief Complaint: Right Diabetic Foot Ulcer History of Wound: Mr. Joe Molina is a 63-year-old male who presents to the wound healing center today for evaluation and management of a right diabetic foot ulcer which seems to have formed after he began wearing regular shoes according to records received from prior wound center. This ulceration is on the right lateral foot. This wound has been ongoing for at least the last 2 months. He recently moved back to [place] from [place] where he had been for the past several years. He was receiving care for this ulceration at the wound care center there. He reports they were treating with Apligraf and PuraPly. Hereports the wound has been making positive progress over the last few weeks. Heis wearing a surgical shoe to keep pressure off of that area. He has been seen here at this wound center multiple times in the past for diabetic foot ulcers, last seen in 2015 before moving to [place]. 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 He had a left lower extremity angiogram with tibial intervention on 01/14/2023 to attempt to improve inflow for limb salvage efforts. Ultimately he did undergo the left BKA on 03/05/2023. Other than this recent angiogram he denies any prior vascular surgical interventions. He did have arterial studies in [place] on 06/17/2023 and the fax report shows a right TEDDY of 1.03 with stenosis of the right SFA. He has a history of poorly controlled diabetes but fortunately now has better control with report of his last A1c 6.8 in May. He did receive new shoe insert from podiatry in [place]. He just got back to [place] this week. He has called to establish with a PCP but his first appointment is not until September. He relates that he will be out of insulin before then and he is concerned about this. He is also having some trouble with his prosthetic, there is a spot that is rubbing against his left knee but he has not established with a prosthetics company here in [place] yet. Hehas not established with a advertising dispatch clerk here yet. Subjective Subjective He had some trouble with dressing changes this week, he has a hard time visualizing the wound which makes it difficult to apply the wound dressings in the correct location. Otherwise, he denies any new redness, swelling, drainage, foul odor. He continues to use the surgical shoe. Objective Data Objective Data Vital Signs: Vital Signs Temp Pulse Resp BP O2 Del Method 98.1 F 61 16 163/98 H Room Air 08/28/23 13:10 08/21/23 13:12 08/28/23 13:10 08/28/23 13:10 08/28/23 13:10 Oxygen Delivery Method Room Air Weight: 240 lb 1.75 oz Body Mass Index (BMI) 32.5 Charges/Coding Procedures Integumentary 111xxx-113xx: 89146 Violet subq tissue 20 sq cm/< Physical Exam Const alert, oriented x3 and no apparent distress General Appearance: cooperative and comfortable HEENT normocephalic, head/scalp atraumatic, hearing grossly normal bilaterally, external ears normal and external nose normal Eyes EOMs intact bilaterally General Eye: normal appearance of both eyes Neck full ROM General: normal visual inspection and trachea midline Resp normal respiratory effort Effort and Inspection: able to speak in complete sentences; Negative for respiratory distress, labored, stridor, retractions or audible wheezes Cardio regular rate and regular rhythm Extremity Extremity Narrative: Left BKA Palpable right PT, DP diminished to palpation Skin no rashes or lesions noted Wounds: wounds noted Wound Narrative: Small ulceration to the right lateral aspect of the foot. There is granulation tissue at the base, some callus in the periwound. There is no significant tracking. Minimal periwound erythema without excessive warmth or focal swelling. No significant drainage or foul odor. Neuro oriented x3, CN's II-XII intact bilaterally, moves all extremities and no focal motor deficits Speech: speech normal Psych mental status grossly normal Appearance: grossly normal Attitude: calm and engaged Activity / Motor Behavior: appropriate eye contact Speech: normal speech Judgement: judgement good Debridement Note Debridement Note Wound debrided: Right lateral foot Laterality: Right Type of Debridement: Excisional debridement Anesthesia Used: 5% Lidocaine Gel Depth: in the subcutaneous layer Percentage of wound debrided: 100 Instrument Used: 5mm curette Tissue Removed: Callus, slough, devitalized tissue Severity: Fat Layer Exposed Amount of bleeding with debridement: Mild Bleeding Controlled with: Pressure Patient tolerated procedure: Patient tolerated procedure well Post-Debridement Measurements and Additional Note: Post-Debridement Measurements/Treatment WC - Nurse 1 - General Ulcer Assessment Start: 08/21/23 13:12 Freq: Status: Active Protocol: BREE Activity Type Activity Date Activity User E-sign Co-sign Detail Recorded Client Recorded Date Recorded By Document 08/21/23 13:12 DL Desktop 08/21/23 13:27 DL Edit Result 08/21/23 13:12 DL (1) Desktop 08/21/23 13:30 DL Document 08/28/23 13:10 KW Desktop 08/28/23 13:16 KW (1) Preferred language => Citizen Of [place] Able to Read => Yes Able to Write => Yes Communication Tools => None Right Hearing Abillity => Normal Left Hearing Abillity => Normal Visual Assistive Devices => Glasses Preferences => Verbal,Written Barriers to Learning => None Readiness To Learn => Good Willingness to Engage in Self Management => Med Activies Readiness to Engage in Self Management => Med Activities Anxiety Level => Calm Cooperation => Cooperative Perception => Coherent Interest in Health Problem => Asks Questions Education Importance => Acknowledges Need Does Patient Smoke tobacco or other => No substances Is Patient Diabetic => Yes Recent Decline in Ability to Perform => Denies Any => Declines Cultural/Presybeterian Needs that may affect => No Treatment Plan Would you allow our hospital maintenance shop welder to => No meet you for the purpose of spiritual/ emotional support? [id number] Developer to contact place of mormon => No 08/21/23 08/28/23 13:12 13:10 WC - Today's Visit Information Type of service Initial Visit Nurse-only Visit Arrival Mode Ambulatory Ambulatory Transfer Assistance None Patient Identification Verified (Name & Yes Yes ) Patient Requires Transmission-Based No Precautions Finger Stick Blood Sugar(mg/dl) (if 122 indicated): Blood Sugar Stated by Patient Height and Weight Height 6 ft Weight 240 lb 1.75 oz Weight in Pounds 240.1 lbs Body Mass Index (BMI) 32.5 32.5 BMI Classification Obese Obese BSA - Ben 2.30 Vital Signs Temperature (97.8 F-99.1 F) 98.1 F Temperature Source Temporal Pulse Rate (60-100) 61 Pulse Location Monitor Monitor Respiratory Rate (12-18) 18 16 Respiratory rate source Observation Observation Oxygen Delivery Method Room Air Blood Pressure (90/60-120/80) 141/76 H 163/98 H Blood Pressure Mean (mm Hg) 97 119 Source Monitor Monitor Position Semi-Fowlers Blood Pressure Location Left Arm History Since Last Visit- (Skip if this is Patient's initial visit) Have you changed medications since your No last visit? Any new allergies or adverse reactions No Had a fall/change in ADL's that may No increase risk of falls Signs or symptoms of abuse and/or No neglect since last visit Have you been in the hospital since your No last visit? Has dressing in place as prescribed Yes Has compression in place as prescribed No Has offloadiing in place as prescribed No Experienced any changes in pain level or No management Left Footwear Regular Shoe Regular Shoe Right Footwear Surgical Shoe Regular Shoe with pressure relief insole Pain Scale: 0-10 Numeric Is Patient Pain Free? Yes Yes Communication Assessment Preferred language Citizen Of [place] Able to Read Yes Able to Write Yes Communication Tools None Right Hearing Abillity Normal Left Hearing Abillity Normal Visual Assistive Devices Glasses Teaching Assessment Preferences Verbal,Written Barriers to Learning None Readiness To Learn Good Willingness to Engage in Self Management Med Activies Readiness to Engage in Self Management Med Activities Anxiety Level Calm Cooperation Cooperative Perception Coherent Interest in Health Problem Asks Questions Education Importance Acknowledges Need Does Patient Smoke tobacco or other No substances Is Patient Diabetic Yes Functional Assessment Recent Decline in Ability to Perform Denies Any Declines Culture/Presybeterian/As400 Developer Cultural/Presybeterian Needs that may affect No Treatment Plan Would you allow our hospital maintenance shop welder to No meet you for the purpose of spiritual/ emotional support? As[address] Developer to contact place of mormon No WC - Nurse 1 - General Ulcer Measurement Start: 08/21/23 13:12 Freq: Status: Active Protocol: Activity Type Activity Date Activity User E-sign Co-sign Detail Recorded Client Recorded Date Recorded By Document 08/21/23 13:12 DL Desktop 08/21/23 13:27 DL Document 08/28/23 13:10 KW Desktop 08/28/23 13:16 KW 08/21/23 08/28/23 13:12 13:10 Wound Center Nurse 1 2. right foot 3rd met head -Current Size (cm) - Length 0.7 0.2 -Current Size (cm) - Width 0.4 1 -Current Size (cm) - Depth 0.1 0.1 -Total Square Cm 0.28 0.2 -Photo Taken Yes -Maximum Distance #2 (cm) 0.6 -Circular Undermining Yes -Exudate Amt Small Small -Exudate Type Serosanguineous Serosanguineous -Wound Margin Thickened Distinct, Outline Attached -Granulation Amt Small (1-33%) Medium (34-66%) -Granulation Quality Pale,[place] -Necrosis Amt Small (1-33%) Small (1-33%) -Necrotic Tissue Type Adherent Slough Adherent Slough -Structure Exposed N/A -Texture (Blaire-wound Skin Appearance) Scarring Callus -Moisture (Blaire-wound Skin Appearance) Dry/Scaly Assessed -Color (Blaire-wound Skin Appearance) No Abnormality Assessed -Temperature (Blaire-wound Skin No Abnormality No Abnormality Appearance) (Pt Warm) (Pt Warm) -Tenderness on Palpation (Blaire-wound No Skin Appearance) -Ulcer Cleansing Not Cleansed Rinsed/ Irrigated with Saline -Foul Odor after Cleansing No -Anesthetic Used 5% Lidocaine 5% Lidocaine Gel Gel WC - Nurse 2 - General Ulcer CM Notes Start: 08/21/23 13:12 Freq: Status: Active Protocol: Activity Type Activity Date Activity User E-sign Co-sign Detail Recorded Client Recorded Date Recorded By Document 08/21/23 16:18 PL [id number] 08/21/23 16:19 PL Document 08/28/23 15:59 PL [id number] 08/28/23 16:00 PL 08/21/23 08/28/23 16:18 15:59 Wound Center Nurse 2 2. right foot 3rd met head -Time 13:54 13:31 -Correct Patient Yes Yes -Correct Side, Site, Position Yes Yes -Correct Procedure Yes Yes -Procedure Performed Yes Yes -Type of Procedure Debridement Debridement -Clinical Debridement Subcutaneous Subcutaneous -Tissue Removed Subcutaneous Subcutaneous -Post Debridement (cm) - Length 1.0 0.7 -Post Debridement (cm) - Width 0.7 0.6 -Post Debridement (cm) - Depth 0.2 0.1 -Total Square (Post) (cm) 0.70 0.42 -Area of Debridement (cm) - Length 1.0 0.7 -Area of Debridement (cm) - Width 0.7 0.6 -Total Square (Area) (cm) 0.70 0.42 -Tunneling No No -Undermining/Tunneling No No -Circular Undermining No No -Wound/Ulcer Outcome Not Healed Not Healed -Ulcer Cleansing Rinsed/ Rinsed/ Irrigated with Irrigated with Saline Saline -Foul Odor after Cleansing No No -Bioengineered Tissue No No -Bleeding Controlled with Pressure Pressure -Treatment Response Procedure Procedure Tolerated Well Tolerated Well -Debridement - Subq, 1st 20sq cm Yes Yes Pain Scale: 0-10 Numeric Is Patient Pain Free? Yes Yes - Nurse 3 - General Ulcer D/C NN Start: 08/21/23 13:12 Freq: Status: Active Protocol: Activity Type Activity Date Activity User E-sign Co-sign Detail Recorded Client Recorded Date Recorded By Document 08/21/23 14:29 [facility] Desktop 08/21/23 14:29 [facility] Document 08/28/23 13:48 Desktop 08/28/23 13:49 08/21/23 08/28/23 14:29 13:48 Wound Care Center Nurse 3 2. right foot 3rd met head -Ulcer Cleansing Rinsed/ Irrigated with Saline -Foul Odor after Cleansing No -Primary Dressing Applied Mepilex Border, Promogran Promogran Elisa Matter Elisa Matter -Primary Dressing Covered/Secured with Dry Gauze, Secured with Tape -Mepilex Border 1 -Promogran Elisa Matter 1 1 Treatment Response Procedure Tolerated Well Pain Scale: 0-10 Numeric Is Patient Pain Free? Yes Yes - Visit Discharge Discharge Condition Stable Stable Ambulatory Status Ambulatory Ambulatory Transportation Private Auto Private Auto Medication Reconcilliation completed & No provided to patient/care provider Clinical Summary of Care Provided Yes Assessment/Plan Assessment/Plan (1) Diabetic ulcer of right foot associated with diabetes mellitus due to underlying condition, with fat layer exposed: CODE(S): E08.621 - Diabetes mellitus due to underlying condition with footulcer; L97.512 - Non-pressure chronic ulcer of other part of right foot with fatlayer exposed (2) Amputation of left lower extremity below knee: CODE(S): S88.112A - Complete traumatic amputation at level between knee and ankle, left lower leg, initial encounter PLAN: Plan Debridement performed as noted above the patient tolerated this well. Wound is improved in size this week. Will continue apply lightly moistened Elisa to the wound bed, cover with foam border dressing. Change the dressing daily or more often as needed if it becomes soiled. May wash the area gently with antibacterial soap and water and pat to dry with dressing changes. He was instructed not to submerge the wound in water. Continue to wear the surgical shoe and ensure no pressure/friction against the wound. For now, okay to walk as needed but avoid prolonged walking or standing where possible. Elevate leg with resting. He is advised to try utilizing a mirror when applying dressings to ensure he is placing the Elisa over the wound bed. If he continue to have difficulty applying the dressings at home, then we can arrange for nurse visits to assist. He will return to the wound healing center in 1 week. 08/29/23 0731 <Electronically signed by Tamika MORE> Cosigner Signature (if applicable): CC: ~ Signed [facility] Work Phone: [phone]) 523-883601-05-2024 History and physical note Author Tamika Avitia [facility] August 22, 2023 2:37pm Note Date/Time August 22, 2023 2: 10pm [facility] [address] [place] [address] H&P Exam - Wound Care 08/22/23 1357 MR#: [id number] Acct: [id number] Name: JOE MOLINA Rep #:[id number] : 1960 63 From: Tamika MORE PCP: Care Physician,No Primary Status :REG RCR Location: History of Present Illness Date of Service: 08/21/23 Chief Complaint: Right Diabetic Foot Ulcer History of Wound: Mr. Joe Molina is a 63-year-old male who presents to the wound healing center today for evaluation and management of a right diabetic foot ulcer which seems to have formed after he began wearing regular shoes according to records received from prior wound center. This ulceration is on the right lateral foot. This wound has been ongoing for at least the last 2 months. He recently moved back to [place] from [place] where he had been for the past several years. He was receiving care for this ulceration at the wound care center there. He reports they were treating with Apligraf and PuraPly. Hereports the wound has been making positive progress over the last few weeks. Heis wearing a surgical shoe to keep pressure off of that area. He has been seen here at this wound center multiple times in the past for diabetic foot ulcers, last seen in 2015 before moving to [place]. 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 He had a left lower extremity angiogram with tibial intervention on 01/14/2023 to attempt to improve inflow for limb salvage efforts. Ultimately he did undergo the left BKA on 03/05/2023. Other than this recent angiogram he denies any prior vascular surgical interventions. He did have arterial studies in [place] on 06/17/2023 and the fax report shows a right TEDDY of 1.03 with stenosis of the right SFA. He has a history of poorly controlled diabetes but fortunately now has better control with report of his last A1c 6.8 in May. He did receive new shoe insert from podiatry in [place]. He just got back to [place] this week. He has called to establish with a PCP but his first appointment is not until September. He relates that he will be out of insulin before then and he is concerned about this. He is also having some trouble with his prosthetic, there is a spot that is rubbing against his left knee but he has not established with a prosthetics company here in [place] yet. Hehas not established with a advertising dispatch clerk here yet. PFSH Home Medications aspirin 81 mg chewable tablet 81 mg PO DAILY@0800 02/23/16 [History Last Taken Unknown] clopidogrel 75 mg tablet (Plavix) 75 mg PO DAILY 08/21/23 [History Last Taken Unknown] insulin aspart U-100 See Rx Instructions .Route .COMPLEX 08/21/23 [History Last Taken Unknown] Allergy/AdvReac Type Severity Reaction Status Date / Time Sulfa (Sulfonamide Allergy Unknown Verified 08/21/23 13:33 Antibiotics) liraglutide [From Victoza] AdvReac Vomiting Verified 08/21/23 13:33 Social History Smoking Status: Never smoker Vital Signs Vital Signs Vital Signs: Weight Weight: 240 lb 1.75 oz Body Mass Index (BMI) 32.5 Physical Exam Const alert, oriented x3 and no apparent distress General Appearance: cooperative and comfortable HEENT normocephalic, head/scalp atraumatic, hearing grossly normal bilaterally, external ears normal and external nose normal Eyes EOMs intact bilaterally General Eye: normal appearance of both eyes Neck full ROM General: normal visual inspection and trachea midline Resp normal respiratory effort Effort and Inspection: able to speak in complete sentences; Negative for respiratory distress, labored, stridor, retractions or audible wheezes Cardio regular rate and regular rhythm Extremity Extremity Narrative: Left BKA Palpable right PT, DP diminished to palpation Skin no rashes or lesions noted Wounds: wounds noted Wound Narrative: Small ulceration to the right lateral aspect of the foot. There is granulation tissue at the base, some callus in the periwound. There is no significant tracking. Minimal periwound erythema without excessive warmth or focal swelling. No significant drainage or foul odor. Neuro oriented x3, CN's II-XII intact bilaterally, moves all extremities and no focal motor deficits Speech: speech normal Psych mental status grossly normal Appearance: grossly normal Attitude: calm and engaged Activity / Motor Behavior: appropriate eye contact Speech: normal speech Judgement: judgement good Debridement Note Debridement Note Wound debrided: Right lateral foot Laterality: Right Type of Debridement: Excisional debridement Anesthesia Used: 5% Lidocaine Gel Depth: in the subcutaneous layer Percentage of wound debrided: 100 Instrument Used: 5mm curette Tissue Removed: Callus, slough, devitalized tissue Severity: Fat Layer Exposed Amount of bleeding with debridement: Mild Bleeding Controlled with: Pressure Patient tolerated procedure: Patient tolerated procedure well Post-Debridement Measurements and Additional Note: Post-Debridement Measurements/Treatment WC - Nurse 1 - General Ulcer Assessment Start: 08/21/23 13:12 Freq: Status: Active Protocol: WC.LOWEXT Activity Type Activity Date Activity User E-sign Co-sign Detail Recorded Client Recorded Date Recorded By Document 08/21/23 13:12 DL Desktop 08/21/23 13:27 DL Edit Result 08/21/23 13:12 DL (1) Desktop 08/21/23 13:30 DL (1) Preferred language => Citizen Of [place] Able to Read => Yes Able to Write => Yes Communication Tools => None Right Hearing Abillity => Normal Left Hearing Abillity => Normal Visual Assistive Devices => Glasses Preferences => Verbal,Written Barriers to Learning => None Readiness To Learn => Good Willingness to Engage in Self Management => Med Activies Readiness to Engage in Self Management => Med Activities Anxiety Level => Calm Cooperation => Cooperative Perception => Coherent Interest in Health Problem => Asks Questions Education Importance => Acknowledges Need Does Patient Smoke tobacco or other => No substances Is Patient Diabetic => Yes Recent Decline in Ability to Perform => Denies Any => Declines Cultural/Presybeterian Needs that may affect => No Treatment Plan Would you allow our [facility] maintenance shop welder to => No meet you for the purpose of spiritual/ emotional support? [id number] Developer to contact place of mormon => No 08/21/23 13:12 - Today's Visit Information Type of service Initial Visit Arrival Mode Ambulatory Transfer Assistance None Patient Identification Verified (Name & Yes ) Patient Requires Transmission-Based No Precautions Finger Stick Blood Sugar(mg/dl) (if 122 indicated): Blood Sugar Stated by Patient Height and Weight Height 6 ft Weight 240 lb 1.75 oz Weight in Pounds 240.1 lbs Body Mass Index (BMI) 32.5 BMI Classification Obese BSA - Ben 2.30 Vital Signs Pulse Rate (60-100) 61 Pulse Location Monitor Respiratory Rate (12-18) 18 Respiratory rate source Observation Blood Pressure (90/60-120/80) 141/76 H Blood Pressure Mean 97 Source Monitor History Since Last Visit- (Skip if this is Patient's initial visit) Left Footwear Regular Shoe Right Footwear Surgical Shoe with pressure relief insole Pain Scale: 0-10 Numeric Is Patient Pain Free? Yes Communication Assessment Preferred language Citizen Of [place] Able to Read Yes Able to Write Yes Communication Tools None Right Hearing Abillity Normal Left Hearing Abillity Normal Visual Assistive Devices Glasses Teaching Assessment Preferences Verbal,Written Barriers to Learning None Readiness To Learn Good Willingness to Engage in Self Management Med Activies Readiness to Engage in Self Management Med Activities Anxiety Level Calm Cooperation Cooperative Perception Coherent Interest in Health Problem Asks Questions Education Importance Acknowledges Need Does Patient Smoke tobacco or other No substances Is Patient Diabetic Yes Functional Assessment Recent Decline in Ability to Perform Denies Any Declines Culture/Presybeterian/[id number] Developer Cultural/Presybeterian Needs that may affect No Treatment Plan Would you allow our hospital maintenance shop welder to No meet you for the purpose of spiritual/ emotional support? [email or web address] to contact place of mormon No WC - Nurse 1 - General Ulcer Measurement Start: 08/21/23 13:12 Freq: Status: Active Protocol: Activity Type Activity Date Activity User E-sign Co-sign Detail Recorded Client Recorded Date Recorded By Document 08/21/23 13:12 DL Desktop 08/21/23 13:27 DL 08/21/23 13:12 Wound Center Nurse 1 2. right foot 3rd met head -Current Size (cm) - Length 0.7 -Current Size (cm) - Width 0.4 -Current Size (cm) - Depth 0.1 -Total Square Cm 0.28 -Photo Taken Yes -Maximum Distance #2 (cm) 0.6 -Circular Undermining Yes -Exudate Amt Small -Exudate Type Serosanguineous -Wound Margin Thickened -Granulation Amt Small (1-33%) -Granulation Quality Pale,[place] -Necrosis Amt Small (1-33%) -Necrotic Tissue Type Adherent Slough -Structure Exposed N/A -Texture (Blaire-wound Skin Appearance) Scarring -Moisture (Blaire-wound Skin Appearance) Dry/Scaly -Color (Blaire-wound Skin Appearance) No Abnormality -Temperature (Blaire-wound Skin No Abnormality Appearance) (Pt Warm) -Tenderness on Palpation (Blaire-wound No Skin Appearance) -Ulcer Cleansing Not Cleansed -Foul Odor after Cleansing No -Anesthetic Used 5% Lidocaine Gel WC - Nurse 2 - General Ulcer CM Notes Start: 08/21/23 13:12 Freq: Status: Active Protocol: Activity Type Activity Date Activity User E-sign Co-sign Detail Recorded Client Recorded Date Recorded By Document 08/21/23 16:18 PL [id number] 08/21/23 16:19 PL 08/21/23 16:18 Wound Center Nurse 2 -Time 13:54 -Correct Patient Yes -Correct Side, Site, Position Yes -Correct Procedure Yes -Procedure Performed Yes -Type of Procedure Debridement -Clinical Debridement Subcutaneous -Tissue Removed Subcutaneous -Post Debridement (cm) - Length 1.0 -Post Debridement (cm) - Width 0.7 -Post Debridement (cm) - Depth 0.2 -Total Square (Post) (cm) 0.70 -Area of Debridement (cm) - Length 1.0 -Area of Debridement (cm) - Width 0.7 -Total Square (Area) (cm) 0.70 -Tunneling No -Undermining/Tunneling No -Circular Undermining No -Wound/Ulcer Outcome Not Healed -Ulcer Cleansing Rinsed/ Irrigated with Saline -Foul Odor after Cleansing No -Bioengineered Tissue No -Bleeding Controlled with Pressure -Treatment Response Procedure Tolerated Well -Debridement - Subq, 1st 20sq cm Yes Pain Scale: 0-10 Numeric Is Patient Pain Free? Yes - Nurse 3 - General Ulcer D/C NN Start: 08/21/23 13:12 Freq: Status: Active Protocol: Activity Type Activity Date Activity User E-sign Co-sign Detail Recorded Client Recorded Date Recorded By Document 08/21/23 14:29 [facility] Desktop 08/21/23 14:29 [facility] 08/21/23 14:29 Wound Care Center Nurse 3 2. right foot 3rd met head -Ulcer Cleansing Rinsed/ Irrigated with Saline -Foul Odor after Cleansing No -Primary Dressing Applied Mepilex Border, Promogran Elisa Matter -Mepilex Border 1 -Promogran Elisa Matter 1 Treatment Response Procedure Tolerated Well Pain Scale: 0-10 Numeric Is Patient Pain Free? Yes - Visit Discharge Discharge Condition Stable Ambulatory Status Ambulatory Transportation Private Auto Charges/Coding Visit Charges Office Visits / Consults: 68223 OV L3 New 30min Procedures Integumentary 111xxx-113xx: [id number] Violet subq tissue 20 sq cm/< Assessment/Plan Assessment/Plan (1) Diabetic ulcer of right foot associated with diabetes mellitus due to underlying condition, with fat layer exposed: CODE(S): E08.621 - Diabetes mellitus due to underlying condition with footulcer; L97.512 - Non-pressure chronic ulcer of other part of right foot with fatlayer exposed (2) Amputation of left lower extremity below knee: CODE(S): S88.112A - Complete traumatic amputation at level between knee and ankle, left lower leg, initial encounter PLAN: Plan Debridement performed as noted above the patient tolerated this well. Will apply lightly moistened Elisa to the wound bed, cover with foam border dressing. Change the dressing daily or more often as needed if it becomes soiled. May wash the area gently with antibacterial soap and water and pat to dry with dressing changes. He was instructed not to submerge the wound in water. Continue to wear the surgical shoe and ensure no pressure/friction against the wound. For now, okay to walk as needed but avoid prolonged walking or standing where possible. Elevate leg with resting. He has a small area of concern on the left knee Which just shows stage I pressure injury on the left patella. Encourage him to pat this area. I have called the antibiotics and they are agreeable to seeing the patient to make adjustments to his prosthesis as needed. He is provided with [facility] phone number and he will need to call to set up this appointment. Patient reported that he had an appointment scheduled with [facility] in September but was going to be running out of his insulin before then. I did reach out to [facility] and they stated they would be able to provide him with insulin to hold him over to his appointment. He was provided with their phone number and encouraged to call them early next week if he had not received an updated prescription by then or present to the emergency room should he run out before this. He will return to the wound healing center in 1 week. 08/22/23 [id number] <Electronically signed by Tamika MORE> Cosigner Signature (if applicable): CC: ~ Signed [facility] Work Phone: Discharge summary Author Joel Richardson [facility] Note Date/Time April 25, 2025 1:07pm [facility] Medical Records Department [address] [place] [address] Emergency Department Summary 04/25/25 MR#: [id number] Acct: [id number] Name: JOE MOLINA Rep #:[id number] : 1960 64 From: Joel Richardson MD PCP: Dr. Niurka Simons MD Status:REG ER Location: ED HPI History of Present Illness Chief Complaint: Cough Narrative Narrative: 64-year-old male who denies significant past medical history presents with shortness of breath and orthopnea that has had over the last few days. He denies any fevers or chills but has had an occasional cough. He likens this feeling similar to when he had COVID 4 to 5 years ago. It feels like the tail end of it. He denies any fevers or chills, no nausea or vomiting, no other symptoms. No leg swelling. 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 He states that even last evening he found it difficult to sleep because he could not lay flat. Denies history of congestive heart failure or COPD. Additionally, he states he always has history of low heart rate, that he has been to the 911 dispatcher in the past, and they have been seeing 2 different 911 dispatcher andhe is naturally bradycardic and 40s. [facility] Medical History Bradycardia Vision problems Diabetes ADHD Hepatitis A Osteomyelitis PVD (peripheral vascular disease) Home Medications ?Medication ?Instructions ?Recorded ?Last Taken ?Type aspirin 81 mg tablet,delayed 81 mg PO DAILY 09/22/23 U nknown History release blood-glucose,market risk specialist,cont #1 ea 09/23/23 Unknown Rx (Dexcom G7 Impregnator And Drier) arm brace #1 ea 08/13/24 Unknown Rx blood-glucose sensor (Dexcom G7 #3 ea 08/23/24 Unknown Rx Sensor device) arm brace #1 ea 10/28/24 Unknown Rx insulin degludec 100 unit/mL (3 50 unit (0.5 mL) subcu t DAILY #45 10/28/24 Unknown Rx mL) subcutaneous pen (Tresiba mL FlexTouch U-100 insulin) fexofenadine 180 mg tablet 180 mg PO QDAY #10 tabs 08/11 Unknown Rx (Kary Hives) ketoconazole 2 % shampoo 1 applic topical 3XW #120 mL 02/15/25 Unknown Rx insulin aspart U-100 100 unit/mL 12 - 20 unit (0.12 - 0.2 mL) 04/05/25 Unknown Rx (3 mL) subcutaneous pen (Novolog subcut TID #45 mL FlexPen U-100 Insulin aspart) albuterol sulfate 90 mcg/actuation 1 - 2 puff inhalati on Q4H PRN PRN 04/25/25 Unknown Rx aerosol inhaler (Ventolin HFA) Wheezing #1 ea levofloxacin 750 mg tablet 750 mg PO DAILY 7 days #7 t abs 04/25/25 Unknown Rx Allergy/AdvReac Type Severity Reaction Status Date / Time semaglutide (From Ozempic) Allergy Intermediate Vomiting Verified 04/25/25 10:36 Sulfa (Sulfonamide Allergy Unknown Verified 04/25/25 10:36 Antibiotics) amlodipine AdvReac Mild dizzy Verified 04/25/25 10:36 liraglutide (From Victoza) AdvReac Vomiting Verified 04/25/25 10:36 Seasonal Allergies: Uncoded AdvReac Other Verified 04/25/25 10:36 (environmental) Family History Grandmother Diabetes Surgical History Cataract extraction status H/O vasectomy Amputation toe Amputation of left lower extremity below knee Social History household members: none housing: house current occupational status: employed and retired 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 Positive orthopnea and dyspnea on exertion as well. No noted leg swelling. EXAM Physical Exam Narrative Exam Narrative: Afebrile. Vital signs noted. Nontoxic-appearing. Cardiovascular examination reveals bradycardia. Lungs are clear to auscultation bilaterally with slightly prolonged expiratory phase but no stridor or wheezing. Abdomen is soft and nontender without guarding or rebound. Neurological examination nonfocal, nonlateralizing. Left lower extremity does show prosthetic in place. Const Vital Signs: 04/25/25 10:32 04/25/25 10:32 04/25/25 11:24 Temperature 98.9 F Temperature Source Temporal Pulse Rate 47 L Respiratory Rate 16 Respiratory Effort Short of Breath Respiratory Depth Normal Respiratory Pattern Blood Pressure 175/61 H Blood Pressure Mean 99 Pulse Ox 98 98 Oxygen Delivery Method Room Air Room Air Room Air 04/25/25 11:42 04/25/25 12:32 Temperature Temperature Source Pulse Rate 60 58 L Respiratory Rate 16 18 Respiratory Effort Respiratory Depth Respiratory Pattern Normal Blood Pressure 135/61 H Blood Pressure Mean 85 Pulse Ox 95 Oxygen Delivery Method Room Air MDM MDM MDM Narrative Medical decision making narrative: The differential diagnosis includes but not limited to bronchitis versus pneumonia versus pneumothorax versus new onset CHF. Patient is not having chest pain so I do not feel that a troponin is indicated. EKG was obtained and interpreted by myself independently as more of a bradycardia that appears sinus at [address] changes. No STEMI. He was given a DuoNeb aerosolized treatment. Pulse ox is 98% on room air without evidence of hypoxia. I reviewed his laboratory work and he has a normal white count at 9.5 with hemoglobin slightly hemoconcentrated at 17.0 but hematocrit 49.6, platelet countnormal at 262. Electrolyte panel shows chloride of 110 with sodium of 141 and potassium normal at 3.9. Glucose 88. BNP is slightly elevated at 1201 which isslightly above normal for his age. Chest x-ray interpreted by myself independently does show right upper lobe patchy infiltrate. I doubt CHF becauseit is unilateral. I reviewed the radiology report which confirms my independentinterpretation. Upon repeat examination after DuoNeb aerosolized treatment he feels improved. I will start him on Levaquin for his right upper lobe pneumonia. He was warned of the risk of tendon rupture as well with this. Regarding his elevated BNP, I discussed this with Dr. Molina with cardiology. He should have an outpatient echocardiogram through his primary care provider and can follow-up with his previous 911 dispatcher or [facility]. This was relayed to the patient. Additionally, he has an appointment scheduled with his primary care provider for 2 days from now. He was advised to keep this appointment and return instructions were reviewed. I feel he can be discharged and that he does not require observation or admission at this time. Dispositionis discharged home in stable condition. History & Record Review Discussion w/independent historian: Patient Lab Data Attestation: I reviewed the patient's lab results. Labs: Laboratory Results - last 24 hr 04/25/25 11:33 WBC 9.5 RBC 5.66 Hgb 17.0 H Hct 49.6 MCV 87.6 MCH 30.0 MCHC 34.3 RDW Std Deviation 43.6 RDW Coeff of Benita 13.6 Plt Count 262 MPV 10.2 Immature Gran % (Auto) 0.300 Neut % (Auto) 60.7 Lymph % (Auto) 27.4 Haakon % (Auto) 6.7 Eos % (Auto) 4.2 Baso % (Auto) 0.7 Absolute Neuts (auto) 5.8 Absolute Lymphs (auto) 2.60 Nucleated RBC % 0 Sodium 141 Potassium 3.9 Chloride 110 H Carbon Dioxide 21.1 Anion Gap 11 BUN 25 H Creatinine 1.08 Estim Creat Clear Calc 91.95 Est GFR (MDRD) Non-Af 77 BUN/Creatinine Ratio 22.7 H Glucose 88 Calcium 8.9 NT pro BNP II 1201 H Radiography Chest X-Ray - ED: Read by ED Physician and Read by Radiologist Diagnostic Testing: Clinical Impression(s) from Imaging Studies Chest X-Ray 04/25/25 12:18 IMPRESSION: Patchy nodular opacity in the right upper lobe. Findings could reflect pneumonia in the correct clinical setting. Follow-up to document complete resolution is recommended. Reading Location: [facility] Management Discussion w/another healthcare provider: Ship Pur[employer] (Dr. Molina, cardiology) Discharge Plan Triage Chief Complaint: Cough ED Provider: Joel Richardson Dx/Rx/DC Orders Clinical Impression: Pneumonia, Orthopnea, Elevated brain natriuretic peptide (BNP) level Instructions: ED Dyspnea, ED Pneumonia (Adult) Prescriptions: New albuterol sulfate [Ventolin HFA] 90 mcg/actuation HFA aerosol inhaler 1 - 2 puff inhalation Q4H PRN PRN (Reason: Wheezing) Qty: 1 0RF levofloxacin 750 mg tablet 750 mg PO DAILY 7 Days Qty: 7 0RF No Action aspirin 81 mg tablet,delayed release (DR/EC) 81 mg PO DAILY insulin degludec [Tresiba FlexTouch U-100] 100 unit/mL (3 mL) insulin pen 50 unit subcut DAILY Qty: 45 1RF Rx Instructions: 50 units 1 times daily (DME) arm brace Misc See Rx Instructions .Route Qty: 1 0RF Rx Instructions: As directed fexofenadine [Kary Hives] 180 mg tablet 180 mg PO QDAY Qty: 10 0RF ketoconazole 2 % shampoo 1 applic topical 3XW Qty: 120 0RF (DME) Dexcom G7 Impregnator And Drier Misc See Rx Instructions .Route Qty: 1 0RF Rx Instructions: As directed (DME) arm brace Misc See Rx Instructions .Route Qty: 1 0RF Rx Instructions: As directed (DME) Dexcom G7 Sensor Device See Rx Instructions .Route Qty: 3 12RF Rx Instructions: As directed insulin aspart U-100 [Novolog FlexPen U-100 Insulin] 100 unit/mL (3 mL) insulin pen 12 - 20 unit subcut TID Qty: 45 0RF Primary Care Provider: Niurka Simons Referrals: Niurka Simons MD [Primary Care Provider] - Keep Dm appointment Activity Restrictions/Additional Instructions: Your chest x-ray showed you had a right upper lobe pneumonia. Antibiotics as directed. Be wary of tendon rupture with the use of Levaquin. Use albuterol inhaler as directed. You had an elevated BNP today. Cardiology suggests getting an outpatient echocardiogram of your heart through your primary care provider. You can follow- up with [facility] or your previous 911 dispatcher. Return with increased difficulty breathing, new or worsening symptoms. Print Language: Citizen Of [place] Disposition Disposition: Home, Self Care What to do if you have Problems For any increased pain, shortness of breath, bleeding, nausea or vomiting, chestpain, or any unexpected problems, contact your Primary Care Provider. Call [facility] ([phone]) or report to the closest Emergency Room. Call 911 if necessary. 04/25/25 1307 <Electronically signed by Joel Richardson MD> Cosigner Signature (if applicable): CC: Dr. Niurka Simons MD ~ Signed [facility] Work Phone: Evaluation note* Diagnosis Onset Date Resolution Status Amputation of left lower extremity below knee acute [id number] acute [facility] Work Phone: Evaluation note* Diagnosis Onset Date Resolution Status [id number] acute Amputation of left lower extremity below knee resolved Controlled type 2 diabetes mellitus acute [id number] acute Essential hypertension acute Colon cancer screening declined noneactive Establishing care with new doctor, encounter for noneactive Seborrheic keratosis noneact corwin Right hand weakness noneacti ve [id number] acute Amputation of left lower extremity below knee resolved [facility] Work Phone: Hospital Discharge instructionsAdditional Instructions Your chest x-ray showed you had a right upper lobe pneumonia. Antibiotics as directed. Be wary of tendon rupture with the use of Levaquin. Use albuterol inhaler as directed. You had an elevated BNP today. Cardiology suggests getting an outpatient echocardiogram of your heart through your primary care provider. You can follow-up with [facility] or your previous 911 dispatcher. Return with increased difficulty breathing, new or worsening symptoms.[facility] Work Phone: Reason for referral (narrative)No reason for referral information availableWMary [facility] Work Phone: Summary Purpose Family History Relationship Condition Age at Onset Recorded Date/T miguelina grandmother Diabetes mellitus Unknown Advance Directives Advance Directive Response Recorded Date/ Time Living Will No August 20 1:26pm Power of Medical Associate No August 20 024 1:26pm Advance Directive Response Recorded Date/ Time Do you have a [facility] Power of Medical Associate? 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 PPW SENT WOUND WOUND WOUND Reason for Visit [id number] Amputation of left lower extremity below knee Controlled type 2 diabetes mellitus [id number] Essential hypertension Colon cancer screening declined Establishing care with new doctor, encounter for Seborrheic keratosis Right hand weakness [id number] Amputation of left lower extremity below knee Chief Complaint Admit Date fu October 28, 2024 10: 03am INT XRAY ORDER October 28, 2024 11: 03am Reason for Visit Admit Date Controlled type 2 diabetes mellitus [facility] 2024 10:03am Essential hypertension October 28, 2024 10:03am Immunization declined October 28, 2024 1 0:03am Screening for colon cancer October 28, 2 025 10:03am Fatigue October 28, 2024 10: 03am Bradycardia October 28, 2024 10: 03am Nasal congestion October 28, 2024 10: 03am Obesity (BMI 30.0-34.9) October 28, 2024 10:03am Right hand weakness October 28, 2024 10: 03am Chief Complaint Admit Date October 28, 2024 10: 03am INT XRAY ORDER October 28, 2024 11: 03am G47.10 - Hypersomnia, unspecified November 18, 2024 10:33am Chief Complaint Admit Date October 28, 2024 10: 03am INT XRAY ORDER October 28, 2024 11: 03am G47.10 - Hypersomnia, unspecified November 18, 2024 10:33am RUE: RT HAND WEAKNESS November 24, 2024 9: 34am RUE: RT HAND WEAKNESS November 24, 2024 11 :58am CONCERN FOR INFECTION IN L LEG November 5:11pm Reason for Visit Admit Date Controlled type 2 diabetes mellitus [facility] 2024 10:03am Essential hypertension October 28, 2024 10:03am Immunization declined October 28, 2024 1 0:03am Screening for colon cancer October 28, 2 025 10:03am Fatigue October 28, 2024 10: 03am Bradycardia October 28, 2024 10: 03am Nasal congestion October 28, 2024 10: 03am Obesity (BMI 30.0-34.9) October 28, 2024 10:03am Right hand weakness October 28, 2024 10: 03am Infected blister of left leg November 25, 2024 5:11pm Chief Complaint Admit Date October 28, 2024 10: 03am INT XRAY ORDER October 28, 2024 11: 03am G47.10 - Hypersomnia, unspecified November 18, 2024 10:33am RUE: RT HAND WEAKNESS November 24, 2024 9: 34am RUE: RT HAND WEAKNESS November 24, 2024 11 :58am CONCERN FOR INFECTION IN L LEG November 5:11pm 3 m fu January 27, 2025 10:3 4am Reason for Visit Admit Date Controlled type 2 diabetes mellitus [facility] 2024 10:03am Essential hypertension October 28, 2024 10:03am Immunization declined October 28, 2024 1 0:03am Screening for colon cancer October 28, 2 025 10:03am Fatigue October 28, 2024 10: 03am Bradycardia October 28, 2024 10: 03am Nasal congestion October 28, 2024 10: 03am Obesity (BMI 30.0-34.9) October 28, 2024 10:03am Right hand weakness October 28, 2024 10: 03am Infected blister of left leg November 25, 2024 5:11pm Controlled type 2 diabetes mellitus January 27, 2025 10:34am Essential hypertension January 27, 2025 1 0:34am ONEIL (obstructive sleep apnea) January 27, 2025 10:34am Bradycardia January 27, 2025 10:3 4am Obesity (BMI 30.0-34.9) January 27, 2025 10:34am Right hand weakness January 27, 2025 10:3 4am Chief Complaint Admit Date fu October 28, 2024 10: 03am INT XRAY ORDER October 28, 2024 11: 03am G47.10 - Hypersomnia, unspecified November 18, 2024 10:33am RUE: RT HAND WEAKNESS November 24, 2024 9: 34am RUE: RT HAND WEAKNESS November 24, 2024 11 :58am CONCERN FOR INFECTION IN L LEG November 5:11pm 3 m fu January 27, 2025 10:3 4am ACUTE POSSIBLE CELLULITIS February 15, 2025 1:44pm Reason for Visit Admit Date Controlled type 2 diabetes mellitus [facility] 2024 10:03am Essential hypertension October 28, 2024 10:03am Immunization declined October 28, 2024 1 0:03am Screening for colon cancer October 28, 2 025 10:03am Fatigue October 28, 2024 10: 03am Bradycardia October 28, 2024 10: 03am Nasal congestion October 28, 2024 10: 03am Obesity (BMI 30.0-34.9) October 28, 2024 10:03am Right hand weakness October 28, 2024 10: 03am Infected blister of left leg November 25, 2024 5:11pm Controlled type 2 diabetes mellitus January 27, 2025 10:34am Essential hypertension January 27, 2025 1 0:34am Immunization declined January 27, 2025 10 :34am ONEIL (obstructive sleep apnea) January 27, 2025 10:34am Bradycardia January 27, 2025 10:3 4am Seasonal allergies January 27, 2025 10:3 4am Obesity (BMI 30.0-34.9) January 27, 2025 10:34am Right hand weakness January 27, 2025 10:3 4am Chief Complaint Admit Date fu October 28, 2024 10: 03am INT XRAY ORDER October 28, 2024 11: 03am G47.10 - Hypersomnia, unspecified November 18, 2024 10:33am RUE: RT HAND WEAKNESS November 24, 2024 9: 34am RUE: RT HAND WEAKNESS November 24, 2024 11 :58am CONCERN FOR INFECTION IN L LEG November 5:11pm 3 m fu January 27, 2025 10:3 4am ACUTE POSSIBLE CELLULITIS February 15, 2025 1:44pm 1 W FU February 24, 2025 12:0 7pm Reason for Visit Admit Date Controlled type 2 diabetes mellitus [facility] 2024 10:03am Essential hypertension October 28, 2024 10:03am Immunization declined October 28, 2024 1 0:03am Screening for colon cancer October 28, 2 025 10:03am Fatigue October 28, 2024 10: 03am Bradycardia October 28, 2024 10: 03am Nasal congestion October 28, 2024 10: 03am Obesity (BMI 30.0-34.9) October 28, 2024 10:03am Right hand weakness October 28, 2024 10: 03am Infected blister of left leg November 25, 2024 5:11pm Controlled type 2 diabetes mellitus January 27, 2025 10:34am Essential hypertension January 27, 2025 1 0:34am Immunization declined January 27, 2025 10 :34am ONEIL (obstructive sleep apnea) January 27, 2025 10:34am Bradycardia January 27, 2025 10:3 4am Seasonal allergies January 27, 2025 10:3 4am Obesity (BMI 30.0-34.9) January 27, 2025 10:34am Right hand weakness January 27, 2025 10:3 4am Seborrheic dermatitis February 15, 2025 1:4 4pm Vasculitis February 15, 2025 1:44p m Chief Complaint Admit Date RUE: RT HAND WEAKNESS November 24, 2024 9: 34am RUE: RT HAND WEAKNESS November 24, 2024 11 :58am CONCERN FOR INFECTION IN L LEG November 5:11pm 3 m fu January 27, 2025 10:3 4am ACUTE POSSIBLE CELLULITIS February 15, 2025 1:44pm 1 W FU February 24, 2025 12:0 7pm Reason for Visit Admit Date Infected blister of left leg November 25, 2024 5:11pm Controlled type 2 diabetes mellitus January 27, 2025 10:34am Essential hypertension January 27, 2025 1 0:34am Immunization declined January 27, 2025 10 :34am ONEIL (obstructive sleep apnea) January 27, 2025 10:34am Bradycardia January 27, 2025 10:3 4am Seasonal allergies January 27, 2025 10:3 4am Obesity (BMI 30.0-34.9) January 27, 2025 10:34am Right hand weakness January 27, 2025 10:3 4am Seborrheic dermatitis February 15, 2025 1:4 4pm Vasculitis February 15, 2025 1:44p m Vasculitis February 24, 2025 12:0 7pm Chief Complaint Admit Date 3 m fu January 27, 2025 10:3 4am ACUTE POSSIBLE CELLULITIS February 15, 2025 1:44pm 1 W FU February 24, 2025 12:0 7pm COUGH April 25, 2025 10:32am Reason for Visit Admit Date Controlled type 2 diabetes mellitus January 27, 2025 10:34am Essential hypertension January 27, 2025 1 0:34am Immunization declined January 27, 2025 10 :34am ONEIL (obstructive sleep apnea) January 27, 2025 10:34am Bradycardia January 27, 2025 10:3 4am Seasonal allergies January 27, 2025 10:3 4am Obesity (BMI 30.0-34.9) January 27, 2025 10:34am Right hand weakness January 27, 2025 10:3 4am Seborrheic dermatitis February 15, 2025 1:4 4pm Vasculitis February 15, 2025 1:44p m Vasculitis February 24, 2025 12:0 7pm Additional Source Comments (unrecognized sect ion and content) No Status Records FoundNo Status Records Found INFORMATION SOURCE (unrecogn ized section and content) DATE CREATED AUTHOR 02/11/2018 [facility] DATE CREATED AUTHOR AUTHOR'S KIMBERLY ATBRITTNEY 04/11/2025 [facility] Care Teams (unrecognized sec tion and content) Team Status: Active Member Role Status Dates Dr. Zoltan Plaza MD Family Provider Active No Primary Care Physician Primary Care Provider Active Team Status: Active Member Role Status Dates No Primary Care Physician Primary Care Provider, Refer ring Provider Active ARGENIS De Jesus Attending Provider, Other Provider A ctive Team Status: Inactive Member Role Status Dates No Primary Care Physician Primary Care Provider, Refer ring Provider Active ARGENIS De Jesus Attending Provider Active Team Status: Inactive Member Role Status Dates No Primary Care Physician Primary Care Provider, Refer ring Provider Active Dr. Niurka Simons MD Attending Provider Active Team Status: Active Member Role Status Dates Dr. Niurka Simons MD Primary Care Provider Active Team Status: Inactive Member Role Status Dates Dr. Niurka Simons MD Primary Care Provider Active Start: October 28, 2024 End: October 28, 2024 Dr. Niurka Simons MD Attending Provider Active Start: October 28, 2024 End: October 28, 2024 Dr. Niurka Simons MD Referring Provider Active Start: October 28, 2024 End: October 28, 2024 Team Status: Inactive Member Role Status Dates Dr. Niurka Simons MD Primary Care Provider Active Start: November 18, 2024 End: November 18, 2024 Dr. Niurka Simons MD Attending Provider Active Start: November 18, 2024 End: November 18, 2024 Dr. Niurka Simons MD Referring Provider Active Start: November 18, 2024 End: November 18, 2024 Team Status: Inactive Member Role Status Dates Dr. Niurka Simons MD Primary Care Provider Active Start: November 24, 2024 End: November 24, 2024 Dr. Niurka Simons MD Attending Provider Active Start: November 24, 2024 End: November 24, 2024 Dr. Niurka Simons MD Referring Provider Active Start: November 24, 2024 End: November 24, 2024 Team Status: Active Member Role Status Dates Dr. Niurka Simons MD Primary Care Provider Active Start: November 24, 2024 Dr. Niurka Simons MD Referring Provider Active Start: November 24, 2024 Dr. Niurka Simons MD Other Provider Active St art: November 24, 2024 Dr. Rowan Mulligan MD Attending Provider Active S tart: November 24, 2024 Team Status: Inactive Member Role Status Dates Dr. Niurka Simons MD Primary Care Provider Active Start: November 25, 2024 End: November 25, 2024 Dr. Niurka Simons MD Referring Provider Active Start: November 25, 2024 End: November 25, 2024 Porter MORE, PA Attending Provider Active Sta rt: November 25, 2024 End: November 25, 2024 Team Status: Inactive Member Role Status Dates Dr. Niurka Simons MD Primary Care Provider Active Start: January 27, 2025 End: January 27, 2025 Dr. Niurka Simons MD Attending Provider Active Start: January 27, 2025 End: January 27, 2025 Dr. Niurka Simons MD Referring Provider Active Start: January 27, 2025 End: January 27, 2025 Team Status: Active Member Role/Relationship Status Dates Dr. Niurka Simons MD Primary Care Provider Active Team Status: Inactive Member Role/Relationship Status Dates Dr. iNurka Simons MD Primary Care Provider Active Start: October 28, 2024 End: October 28, 2024 Dr. Niurka Simons MD Attending Provider Active Start: October 28, 2024 End: October 28, 2024 Dr. Niurka Simons MD Referring Provider Active Start: October 28, 2024 End: October 28, 2024 Team Status: Inactive Member Role/Relationship Status Dates Dr. Niurka Simons MD Primary Care Provider Active Start: October 28, 2024 End: October 28, 2024 Dr. Niurka Simons MD Attending Provider Active Start: October 28, 2024 End: October 28, 2024 Dr. Niurka Simons MD Referring Provider Active Start: October 28, 2024 End: October 28, 2024 Team Status: Inactive Member Role/Relationship Status Dates Dr. Niurka Simons MD Primary Care Provider Active Start: November 18, 2024 End: November 18, 2024 Dr. Niurak Simons MD Attending Provider Active Start: November 18, 2024 End: November 18, 2024 Dr. Niurka Simons MD Referring Provider Active Start: November 18, 2024 End: November 18, 2024 Team Status: Inactive Member Role/Relationship Status Dates Dr. Niurka Simons MD Primary Care Provider Active Start: November 24, 2024 End: November 24, 2024 Dr. Niurka Simons MD Attending Provider Active Start: November 24, 2024 End: November 24, 2024 Dr. Niurka Simons MD Referring Provider Active Start: November 24, 2024 End: November 24, 2024 Team Status: Active Member Role/Relationship Status Dates Dr. Niurka Simons MD Primary Care Provider Active Start: November 24, 2024 Dr. Niurka Simons MD Referring Provider Active Start: November 24, 2024 Dr. Niurka Simons MD Other Provider Active St art: November 24, 2024 Dr. Rowan Mulligan MD Attending Provider Active S tart: November 24, 2024 Team Status: Inactive Member Role/Relationship Status Dates Dr. Niurka Simons MD Primary Care Provider Active Start: November 25, 2024 End: November 25, 2024 Dr. Niurka Simons MD Referring Provider Active Start: November 25, 2024 End: November 25, 2024 Porter MORE PA Attending Provider Active Sta rt: November 25, 2024 End: November 25, 2024 Team Status: Inactive Member Role/Relationship Status Dates Dr. Niurka Simons MD Primary Care Provider Active Start: January 27, 2025 End: January 27, 2025 Dr. Niurka Simons MD Attending Provider Active Start: January 27, 2025 End: January 27, 2025 Dr. Niurka Simons MD Referring Provider Active Start: January 27, 2025 End: January 27, 2025 Team Status: Inactive Member Role/Relationship Status Dates Dr. Niurka Simons MD Primary Care Provider Active Start: February 15, 2025 End: February 15, 2025 Dr. Niurka Simons MD Referring Provider Active Start: February 15, 2025 End: February 15, 2025 ARGENIS Gooden Attending Provider Active St art: February 15, 2025 End: February 15, 2025 Team Status: Inactive Member Role/Relationship Status Dates Dr. Niurka Simons MD Primary Care Provider Active Start: February 24, 2025 End: February 24, 2025 Dr. Niurka Simons MD Referring Provider Active Start: February 24, 2025 End: February 24, 2025 ARGENIS Gooden Attending Provider Active St art: February 24, 2025 End: February 24, 2025 Team Status: Inactive Member Role/Relationship Status Dates Dr. Niurka Simons MD Primary Care Provider Active Start: November 24, 2024 End: November 24, 2024 Dr. Niurka Simons MD Attending Provider Active Start: November 24, 2024 End: November 24, 2024 Dr. Niurka Simons MD Referring Provider Active Start: November 24, 2024 End: November 24, 2024 Team Status: Active Member Role/Relationship Status Dates Dr. Niurka Simons MD Primary Care Provider Active Start: November 24, 2024 Dr. Niurka Simons MD Referring Provider Active Start: November 24, 2024 Dr. Niurka Simons MD Other Provider Active St art: November 24, 2024 Dr. Rowan Mulligan MD Attending Provider Active S tart: November 24, 2024 Team Status: Inactive Member Role/Relationship Status Dates Dr. Niurka Simons MD Primary Care Provider Active Start: November 25, 2024 End: November 25, 2024 Dr. Niurka Simons MD Referring Provider Active Start: November 25, 2024 End: November 25, 2024 ARGENIS Patel Attending Provider Active Sta rt: November 25, 2024 End: November 25, 2024 Team Status: Inactive Member Role/Relationship Status Dates Dr. Niurka Simons MD Primary Care Provider Active Start: January 27, 2025 End: January 27, 2025 Dr. Niurka Simons MD Attending Provider Active Start: January 27, 2025 End: January 27, 2025 Dr. Niurka Simons MD Referring Provider Active Start: January 27, 2025 End: January 27, 2025 Team Status: Inactive Member Role/Relationship Status Dates Dr. Niurka Simons MD Primary Care Provider Active Start: February 15, 2025 End: February 15, 2025 Dr. Niurka Simons MD Referring Provider Active Start: February 15, 2025 End: February 15, 2025 ARGENIS Gooden Attending Provider Active St art: February 15, 2025 End: February 15, 2025 Team Status: Inactive Member Role/Relationship Status Dates Dr. Niurka Simons MD Primary Care Provider Active Start: February 24, 2025 End: February 24, 2025 Dr. Niurka Simons MD Referring Provider Active Start: February 24, 2025 End: February 24, 2025 ARGENIS Gooden Attending Provider Active St art: February 24, 2025 End: February 24, 2025 Team Status: Inactive Member Role/Relationship Status Dates Dr. Niurka Simons MD Primary Care Provider Active Start: March 16, 2025 End: March 16, 2025 Dr. Niurka Simons MD Attending Provider Active Start: March 16, 2025 End: March 16, 2025 Team Status: Inactive Member Role/Relationship Status Dates Dr. Niurka Simons MD Primary Care Provider Active Start: January 27, 2025 End: January 27, 2025 Dr. Niurka Simons MD Attending Provider Active Start: January 27, 2025 End: January 27, 2025 Dr. Niurka Simons MD Referring Provider Active Start: January 27, 2025 End: January 27, 2025 Team Status: Inactive Member Role/Relationship Status Dates Dr. Niurka Simons MD Primary Care Provider Active Start: February 15, 2025 End: February 15, 2025 Dr. Niurka Simons MD Referring Provider Active Start: February 15, 2025 End: February 15, 2025 ARGENIS Gooden Attending Provider Active St art: February 15, 2025 End: February 15, 2025 Team Status: Inactive Member Role/Relationship Status Dates Dr. Niurka Simons MD Primary Care Provider Active Start: February 24, 2025 End: February 24, 2025 Dr. Niurka Simons MD Referring Provider Active Start: February 24, 2025 End: February 24, 2025 Atif MORE, PA Attending Provider Active St art: February 24, 2025 End: February 24, 2025 Team Status: Inactive Member Role/Relationship Status Dates Dr. Niurka Simons MD Primary Care Provider Active Start: March 16, 2025 End: March 16, 2025 Dr. Niurka Simons MD Attending Provider Active Start: March 16, 2025 End: March 16, 2025 Team Status: Inactive Member Role/Relationship Status Dates Dr. Niurka Simons MD Primary Care Provider Active Start: April 25, 2025 End: April 25, 2025 Joel Richardson MD Emergency Provider Active Star t: April 25, 2025 End: April 25, 2025 Goals (unrecognized section and content) Goals may be documented in a n alternate sectionGoals may be documented in an alternate sectionGoals may be documented in an alternate sectionGoals may be documented in an alternate sectionGoals may be documented in an alternate sectionGoals may be documented in an alternate sectionGoals may be documented in an alternate sectionGoals may be documented in an alternate sectionGoals may be documented in an alternate sectionGoals may be documented in an alternate section FOR RECORDS PERTAINING TO PATIENTS WHO ARE OR HAVE BEEN ENROLLED IN A CHEMICAL DEPENDENCY/SUBSTANCEABUSE PROGRAM, SOME INFORMATION MAY BE OMITTED. This clinical summary was aggregated from multiple sources. Caution should be exercised in using it in the provision of clinical care. This summary normalizes information from multiple sources, and as a consequence, information in this document may materially change the coding, format and clinical context of patient data. In addition, data may be omitted in some cases. CLINICAL DECISIONS SHOULD BE BASED ON THE PRIMARY CLINICAL RECORDS. [employer] provides no warranty or guarantee of the accuracy or completeness of information in this document.
== END 2025-04-25 13:47 | disposition home or self-care (01) ==
PROVIDERS: Emergency Provider Emergency Medicine; PCP Internal Medicine; Visit Provider Emergency Medicine
DX: J18.9 Pneumonia, unspecified organism (principal); Z89.512 Acquired absence of left leg below knee; E11.51 Type 2 diabetes mellitus with diabetic peripheral angiopathy without gangrene; Z79.4 Long term (current) use of insulin; R79.89 Other specified abnormal findings of blood chemistry; R06.01 Orthopnea; I10 Essential (primary) hypertension; F90.9 Attention-deficit hyperactivity disorder, unspecified type; Z87.39 Personal history of other diseases of the musculoskeletal system and connective tissue; Z79.82 Long term (current) use of aspirin; Z79.899 Other long term (current) drug therapy
CPT/HCPCS: 71046; 80048; 83880; 85025; 87631; 93005; 94640; 99284

== ENCOUNTER → 2025-04-26 | Outpatient (CLI) | payer MEDICAID, SELFPAY | END | disposition home or self-care (01) | LOC: SL 19:47 | PROVIDERS: PCP Internal Medicine; Referring Provider Internal Medicine; Visit Provider Internal Medicine | DX: G47.33 Obstructive sleep apnea (adult) (pediatric) (principal) | CPT/HCPCS: 95811 ==